=== PATIENT | male | born 1945 | race Caucasian/White ===

== ENCOUNTER → 2017-07-20 | Outpatient (CLI) | payer MEDICARE, OTHER | LOC: M ADAMS 08:27 | DX: S22.32XA Fracture of one rib, left side, initial encounter for closed fracture (principal); X58.XXXA Exposure to other specified factors, initial encounter; Y92.89 Other specified places as the place of occurrence of the external cause; Y93.89 Activity, other specified; Y99.8 Other external cause status | CPT/HCPCS: 71101 ==

== ENCOUNTER → 2017-11-25 | Outpatient (CLI) | payer MEDICARE, OTHER | LOC: M ADAMS 11:12 | DX: M25.572 Pain in left ankle and joints of left foot (principal) | CPT/HCPCS: 73610 ==

== ENCOUNTER 2018-07-01 12:52 | Emergency (ER) | payer MEDICARE, OTHER ==
[~2018-07-01] VITALS: Ht 167.6 cm; Wt 79.5 kg
[2018-07-01] MEDS ORDERED: ASPI81TA85 PO (12:59)
[2018-07-01] MEDS ORDERED: METF10004 PO (12:59)
[2018-07-01] MEDS ORDERED: SUMA100T2 (12:59)
[2018-07-01] MEDS ORDERED: LISI10TA4 PO (13:04)
[2018-07-01] MEDS ORDERED: ONDANSETRON 4MG/2ML VIAL (J2405) IV ONE (13:30)
[2018-07-01] MEDS ORDERED: MORPHINE 4 MG/ML 1ML VIAL/SYRINGE (J2270) IV ONE (13:30)
[2018-07-01] MEDS ORDERED: NS 1,000 ML IV ONE (13:30)
[2018-07-01 13:51] LABS: BASO % 0.3 % (0.0-1.0); EOS # 0.1 10^3/uL (0.0-0.50); EOS % 2.4 % (0.0-3.0); HEMATOCRIT 39.2 % (42.0-52.0); HEMOGLOBIN 12.6 g/dl (13.5-17.5); LYMPH # 0.8 10^3/uL (1.5-4.5); LYMPH % 14.4 % (24.0-44.0); MEAN CORPUSCULAR HEMOGLOBIN 31.9 pg (27.0-33.0); MEAN CORPUSCULAR HGB CONC 32.1 g/dl (32.0-36.5); MEAN CORPUSCULAR VOLUME 99.2 fl (80.0-96.0); MONO # 0.6 10^3/uL (0.0-0.8); MONO % 10.6 % (0.0-5.0); NEUTROPHILS # 4.2 10^3/uL (1.8-7.7); NEUTROPHILS % 72.1 % (36.0-66.0); PLATELET COUNT, AUTOMATED 243 10^3/uL (150-450); RED BLOOD COUNT 3.95 10^6/uL (4.30-6.10); WHITE BLOOD COUNT 5.8 10^3/uL (4.0-10.0)
[2018-07-01 14:12] LABS: ALBUMIN 3.4 GM/DL (3.2-5.2); ALT/SGPT 18 U/L (12-78); AMYLASE 44 U/L (25-115); BILIRUBIN,TOTAL 0.3 MG/DL (0.2-1.0); BLOOD UREA NITROGEN 24 MG/DL (7-18); C REACTIVE PROTEIN QUANTITATIV 1.07 MG/DL (0.00-0.30); CALCIUM LEVEL 8.6 MG/DL (8.8-10.2); CARBON DIOXIDE LEVEL 24 MEQ/L (21-32); CHLORIDE LEVEL 107 MEQ/L (98-107); GLOMERULAR FILTRATION RATE > 60.0 (>42); GLUCOSE, FASTING 377 MG/DL (70-100); LIPASE 82 U/L (73-393); POTASSIUM SERUM 4.6 MEQ/L (3.5-5.1); SODIUM LEVEL 138 MEQ/L (136-145); TOTAL PROTEIN 6.8 GM/DL (6.4-8.2)
[2018-07-01] MEDS ORDERED: ISOVUE-370 76% 100ML VIAL (Q9967) As Ordered ONE (14:26)
--- NOTE | 2018-07-01 14:58 | REP ---
Clinical: Acute left lower quadrant pain. Technique: Axial contrast enhanced images from the lung bases to the pubic symphysis using oral (per protocol) and 100 ml Isovue 370 intravenous contrast material with coronal and sagittal re-formations. Comparison: 06/03/2008 Findings: Lung bases demonstrate moderate diffuse primarily subpleural fibrosis with bronchiectasis and scarring. Liver, pancreas, gallbladder, bilateral adrenal glands and kidneys are essentially normal. A 2.5 mm nonobstructing left renal calculus is suspected. Spleen demonstrates parenchymal calcifications consistent with prior granulomatous disease. The enteric system demonstrates moderate fecal stasis without obstruction or obvious acute inflammatory process. Pelvis demonstrates normal bladder and age appropriate prostate/seminal vesicles. No ascites. No adenopathy. No free air. Atherosclerotic changes of the aorta and vasculature without aneurysm or dissection. Surrounding musculoskeletal structures demonstrate chronic stable and degenerative changes. Impression: 1. Moderate fecal stasis and possible constipation. 2. 2.5 mm nonobstructing left renal calculus. 3. No further acute abdominopelvic pathology appreciated. Specifically, no ascites, adenopathy, or focal inflammatory stranding. 4. Chronic changes as detailed above including fibrosis to the bilateral lung bases and evidence of prior granulomas disease. Electronically Signed by Manolo Mar MD 07/01/2018 02:49 P
[2018-07-01] MEDS ORDERED: ZOFR4TAB14 SL (15:17)
[2018-07-01] MEDS ORDERED: NORCOTAB PO (15:17)
[2018-07-01] MEDS ORDERED: COLA100C5 PO (16:20)
[2018-07-01] MEDS ORDERED: FLOM0.4C39 PO (16:22)
[2018-07-01 16:48] VITALS: BP 115/74
== END 2018-07-01 16:53 | disposition home or self-care (01) ==
LOC: M ED 12:52
DX: R10.9 Unspecified abdominal pain (principal); N20.0 Calculus of kidney; J84.10 Pulmonary fibrosis, unspecified; K59.00 Constipation, unspecified; R51 Headache; E78.00 Pure hypercholesterolemia, unspecified; I10 Essential (primary) hypertension; E55.9 Vitamin D deficiency, unspecified; Z85.46 Personal history of malignant neoplasm of prostate; Z87.891 Personal history of nicotine dependence; Z79.82 Long term (current) use of aspirin; Z79.899 Other long term (current) drug therapy
CPT/HCPCS: 36415; 74177; 80053; 81001; 82150; 83690; 85025; 86140; 96374; 96375; 99284; J2270; J2405; Q9967

== ENCOUNTER → 2018-07-01 | Outpatient (REF) | payer MEDICARE, OTHER ==
[~2018-07-01] MED LIST: ASPI81TA85 PO; COLA100C5 PO; FLOM0.4C39 PO; LISI10TA4 PO; METF10004 PO; NORCOTAB PO; SUMA100T2; ZOFR4TAB14 SL
== END ==
LOC: M LAB REF 10:21
PROVIDERS: ATTEND Physician Assistant Medical
DX: R10.9 Unspecified abdominal pain (principal)

== ENCOUNTER → 2018-08-21 | Outpatient (CLI) | payer MEDICARE, OTHER ==
--- NOTE | 2018-08-21 13:16 | REP ---
LEFT AND COMPLETE: 08/21/2018: Comparison: CT 07/01/2018, AP pelvis 12/28/2006: Clinical history: Left hip pain. Findings: Three views were obtained. There are suzy from prior inguinal hernia surgery, unchanged since 2006. Hip joint space is smooth and width is preserved. There are marginal osteophytes at the acetabular roof but small no femoral head rim osteophytes. There is no acetabular fracture or focal lesion. Pubic rami, symphysis pubis, iliac bone, left SI joint as well as the femoral head neck, trochanters and proximal shaft of femur all unremarkable. No abnormal soft tissue calcifications about the hip. There are vascular calcifications in the femoral artery. Impression: 1. Some minor hip osteoarthritic changes without hip joint space narrowing, AVN, fracture or destructive lesion about the hip and proximal femur. That portion of left kylah pelvis including the acetabulum unremarkable. Electronically Signed by Theodore Menchaca MD 08/21/2018 05:56 P
== END ==
LOC: M ADAMS 10:55
PROVIDERS: ATTEND Physician Assistant
DX: M25.752 Osteophyte, left hip (principal); M25.552 Pain in left hip; Z98.890 Other specified postprocedural states

== ENCOUNTER → 2018-09-06 | Outpatient (REF) | payer MEDICARE, OTHER | LOC: M LAB REF 12:24 → M LABDRWAD 12:24 | PROVIDERS: ATTEND Urology | DX: C61 Malignant neoplasm of prostate (principal) ==

== ENCOUNTER → 2018-09-15 | Outpatient (REF) | payer MEDICARE, OTHER | LOC: M LABDRWAD 12:21 | PROVIDERS: ATTEND Urology | DX: C61 Malignant neoplasm of prostate (principal) ==

== ENCOUNTER → 2018-10-11 | Outpatient (CLI) | payer MEDICARE, OTHER ==
[~2018-10-11] MED LIST changes: +HYDR-3715 PO; +ISOVUE-370 76% 100ML VIAL (Q9967) As Ordered ONE; -NORCOTAB PO
--- NOTE | 2018-10-11 08:49 | REP ---
CT of the abdomen pelvis without and with IV contrast: After IV contrast, immediate and delayed scanning is performed. Comparison. A is 07/01/2018. The visualized lung bases demonstrate chronic fibrotic changes and bulla, unchanged from the prior study. The hepatic parenchyma is homogeneous and unremarkable. The gallbladder, pancreas, spleen, adrenals and kidneys are unchanged. Calcified granulomas are again noted in the spleen. A nonobstructive left renal calculus is again identified. A small simple cyst is again noted in the right kidney. The abdominal aorta is unremarkable. There is no retroperitoneal adenopathy. The bowel and mesentery are unremarkable. Pelvis: There is no ascites. There is no pelvic adenopathy. The bladder is unremarkable. The pelvic bowel loops are unremarkable. There are no lytic, blastic, or destructive skeletal changes. There are benign bone islands posteriorly in the right iliac wing, unchanged from the prior study and also unchanged from 06/03/2008. Impression: Nonobstructive left renal calculus, unchanged. Calcified splenic granulomas, unchanged. Parenchymal scarring and/or bulla in the visualized lower lung avendano, unchanged. No adenopathy or mass. No lytic, blastic or destructive skeletal changes. Electronically Signed by Marquise Simon MD 10/11/2018 08:39 A
--- NOTE | 2018-10-11 17:29 | REP ---
Whole body radionuclide bone scan: History: Prostate malignancy. Elevated PSA level. Comparison bone scan. Comparison CT study October 11, 2018. Technique: 21.5 mCi technetium 99m MDP is whole body bone scan imaging was acquired. Scintigraphic findings: There is a normal distribution of skeletal tracer with uptake in bilateral kidneys and in the urinary bladder. There is an arthritic pattern of increased uptake in the left wrist, bilateral acromioclavicular joints, and the left mid foot. There is no evidence to suggest skeletal metastatic disease. Mild degenerative uptake is seen at the lumbosacral junction. Impression: No evidence to suggest skeletal metastatic disease. Electronically Signed by Trey Winkler MD 10/11/2018 05:19 P
== END ==
LOC: M RAD 07:51
PROVIDERS: ATTEND Urology
DX: C61 Malignant neoplasm of prostate (principal); N28.1 Cyst of kidney, acquired; R97.20 Elevated prostate specific antigen [PSA]
CPT/HCPCS: 74178; 78306; A9503; Q9967

== ENCOUNTER → 2019-07-11 | Outpatient (REF) | payer MEDICARE, OTHER ==
[~2019-07-11] MED LIST changes: +B-12100021 PO; +BUPR50TA PO; +FERR325T3 PO; -ISOVUE-370 76% 100ML VIAL (Q9967) As Ordered ONE; +LISI40TA PO; +MAGN1TAB26 PO; +MULTCAP PO; +NAPR-885 PO; +NESI12.5 PO; +PROP60TA14 PO; +ROSU40TA4 PO; +SILD100T7 PO; +SUMA100T2 PO; +TOPI100T9 PO
== END ==
LOC: M LABDRWAD 12:27
PROVIDERS: ATTEND Nurse Practitioner Family
DX: C61 Malignant neoplasm of prostate (principal)

== ENCOUNTER → 2019-11-18 | Outpatient (CLI) | payer MEDICARE, OTHER ==
--- NOTE | 2019-11-21 15:37 | SLEEPCENT ---
DATE OF PROCEDURE: 11/18/2019 ORDERED BY: SOLANGE Vicente Nocturnal polysomnography was performed for evaluation of sleep physiology in this patient with a history of snoring and nonrestorative sleep who has comorbidities of hypertension and type 2 diabetes. 6 hours and 56 minutes of data were reviewed. There were 363 minutes of sleep identified. Sleep latency was short at 4 minutes. Rapid eye movement (REM) latency was prolonged at 98 minutes. Sleep architecture showed fragmentation. There were 3 REM cycles. Overall sleep efficiency was 88%. The electrocardiogram showed a sinus rhythm with an average heart rate of 66 beats per minute. Electroencephalogram (EEG) showed normal waveforms for awake and sleep. There were 89 respiratory events identified of 10 seconds in duration or greater for an apnea hypopnea index of 14.7. The events were primarily obstructive, not exclusive to sleep stage, more frequent in the supine posture. Arousals from respiratory events occurred 7.4 times per hour and oxygen desaturations were seen into the 70s. There was also some limb activity noted in the electromyogram (EMG) leads, 4-5 trains of 30 events, limb movement arousal index of 8.6. IMPRESSION: 1. Obstructive sleep apnea syndrome (G47.33). Apnea hypopnea index 14.7. 2. Possible periodic limb movement disorder (G47.61). Limb movement arousal index 8.6. RECOMMENDATIONS: The patient should be encouraged to return to the sleep disorder center for pressure therapy. In the interim, alcohol and sedative avoidance should be practiced and caution exercised during the operation of motor vehicles. Depending response to pressure therapy the patient may benefit from interventions to reduce the frequency arousal from limb activity as well.
== END ==
LOC: M SLEEP 20:00
PROVIDERS: ATTEND Nurse Practitioner Family
DX: G47.33 Obstructive sleep apnea (adult) (pediatric) (principal)

== ENCOUNTER → 2020-01-08 | Outpatient (CLI) | payer MEDICARE, OTHER ==
[~2020-01-08] MED LIST changes: -ASPI81TA85 PO; +ASPI81TA86 PO; +BUPR-69 PO; -BUPR50TA PO
--- NOTE | 2020-01-18 17:13 | SLEEPCENT ---
DATE OF PROCEDURE: 01/08/2020 ORDERED BY: SOLANGE Vicente Nocturnal polysomnography was performed for the titration of pressure therapy in this patient's obstructive syndrome. Apnea-hypopnea index of 14.7. For testing the patient was fit with a ResMed AirTouch F20 full-face mask of medium size; 4 cm of water pressure were applied to the circuit and the lights extinguished. 7 hours and 59 minutes of data were reviewed. There were 396 minutes of sleep identified. Sleep latency was short at 12 minutes. Rapid eye movement (REM) latency was delayed at 151 minutes. Sleep architecture improved late in the study. There was evidence of REM rebound. Overall sleep efficiency was 83.5%. The electrocardiogram showed a sinus rhythm with an interventricular conduction delay. There was an average heart rate of 66 beats per minute. Electroencephalogram (EEG) showed normal waveforms for awake and sleep. Respiratory events were best palliated with CPAP at a pressure of 14. Some limb activity was noted. Limb movement arousal index was 6.2. IMPRESSION: Obstructive sleep apnea syndrome (G47.33). RECOMMENDATIONS: Nightly use of pressure therapy 14 cm of water.
== END ==
LOC: M SLEEP 20:00
PROVIDERS: ATTEND Nurse Practitioner Family
DX: G47.33 Obstructive sleep apnea (adult) (pediatric) (principal)

== ENCOUNTER → 2020-07-14 | Outpatient (REF) | payer MEDICARE, OTHER | LOC: M LABDRWAD 12:13 | PROVIDERS: ATTEND Nurse Practitioner Family | DX: Z85.46 Personal history of malignant neoplasm of prostate (principal) ==

== ENCOUNTER 2020-07-25 14:37 | Inpatient (IN) | payer MEDICARE, OTHER ==
[~2020-07-25] VITALS: Ht 167.6 cm; Wt 66.4 kg
[~2020-07-25 14:37] MED LIST changes: +LISI10TA22 PO; -LISI10TA4 PO; -LISI40TA PO; +LISI40TA4 PO
[2020-07-25] MEDS ORDERED: IPRATROPIUM 0.5MG/ALBUTEROL 2.5MG INH SOL UD 3ML (DUONEB) NEB ONE (15:15)
[2020-07-25] MEDS ORDERED: LEVALBUTEROL 1.25 MG/0.5 ML CONCENTRATE NEB NEB PRN (15:15)
[2020-07-25] MEDS ORDERED: ASPIRIN 81 MG CHEW TABLET PO ONE (15:15)
--- NOTE | 2020-07-25 15:45 | REP ---
INDICATION: DYSPNEA/COUGH. COMPARISON: 12/10/2005. TECHNIQUE: SINGLE PORTABLE AP VIEW OF THE CHEST WAS PERFORMED. FINDINGS: There is moderate elevation of the right hemidiaphragm. Diffuse interstitial fibrotic changes are present. These are moderate in severity. There is an 8 cm right hilar density which may represent a mass or focal infiltrate. The heart is not enlarged. IMPRESSION: Ill-defined 8 cm rounded density in the right hilar region may represent a mass or focal infiltrate. There is elevation of the right hemidiaphragm. Recommend CT of the chest to further evaluate. <Electronically signed by Marquise Lopez > 07/25/20 [id number]
[2020-07-25 15:50] LABS: VENOUS BASE EXCESS -1.9 (-2.0-2.0); VENOUS HCO3 26.2 MEQ/L (23.0-27.0); VENOUS O2 SATURATION 62.4 % (60.0-80.0); VENOUS PARTIAL PRESSURE CO2 59.9 mmHg (38.0-50.0); VENOUS PARTIAL PRESSURE O2 34.9 mmHg (30.0-50.0); VENOUS PH 7.259 UNITS (7.330-7.430); VENOUS STANDARD HCO3 22.1 MEQ/L; VENOUS TOTAL CO2 28.1 MEQ/L (24.0-28.0)
[2020-07-25 15:54] LABS: BASO % 0.7 % (0.0-1.0); EOS # 0.2 10^3/uL (0.0-0.5); EOS % 3.2 % (0.0-3.0); HEMATOCRIT 39.4 % (42.0-52.0); HEMOGLOBIN 12.7 g/dl (13.5-17.5); LYMPH # 0.9 10^3/uL (1.5-5.0); LYMPH % 15.2 % (24.0-44.0); MEAN CORPUSCULAR HEMOGLOBIN 31.4 pg (27.0-33.0); MEAN CORPUSCULAR HGB CONC 32.2 g/dl (32.0-36.5); MEAN CORPUSCULAR VOLUME 97.3 fl (80.0-96.0); MONO # 0.7 10^3/uL (0.0-0.8); MONO % 11.1 % (0.0-5.0); NEUTROPHILS # 4.1 10^3/uL (1.5-8.5); NEUTROPHILS % 69.5 % (36.0-66.0); PLATELET COUNT, AUTOMATED 305 10^3/uL (150-450); RED BLOOD COUNT 4.05 10^6/uL (4.30-6.10); WHITE BLOOD COUNT 5.9 10^3/uL (4.0-10.0)
[2020-07-25 16:04] LABS: INR 0.87
[2020-07-25 16:31] LABS: ALBUMIN 3.4 GM/DL (3.2-5.2); ALT/SGPT 19 U/L (12-78); BILIRUBIN,DIRECT 0.1 MG/DL (0.0-0.2); BILIRUBIN,TOTAL 0.2 MG/DL (0.2-1.0); BLOOD UREA NITROGEN 20 MG/DL (7-18); CALCIUM LEVEL 9.9 MG/DL (8.8-10.2); CARBON DIOXIDE LEVEL 28 MEQ/L (21-32); CHLORIDE LEVEL 108 MEQ/L (98-107); CPK CREATINE PHOSPHOKINASE 52 U/L (39-308); CREATININE FOR GFR 1.13 MG/DL (0.70-1.30); GLOMERULAR FILTRATION RATE > 60.0 (>42); GLUCOSE, FASTING 112 MG/DL (70-100); MB/CK RELATIVE INDEX 1.92 (< OR =4); POTASSIUM SERUM 4.3 MEQ/L (3.5-5.1); SODIUM LEVEL 140 MEQ/L (136-145); THYROXINE (T4) 7.8 UG/DL (4.5-12.0); TOTAL PROTEIN 7.3 GM/DL (6.4-8.2); TROPONIN I < 0.02 NG/ML (< 0.10)
[2020-07-25] MEDS ORDERED: ISOVUE-370 76% 100ML VIAL As Ordered ONE (16:37)
--- NOTE | 2020-07-25 17:41 | REPVR ---
PROCEDURE INFORMATION: Exam: CT Chest With Contrast; Diagnostic Exam date and time: 07/25/2020 4:00 PM Age: 75 years old Clinical indication: Mass, lump, or swelling in the chest and shortness of breath; Additional info: Sob/mas TECHNIQUE: Imaging protocol: Diagnostic computed tomography of the chest with intravenous contrast. 3D rendering (Not supervised by radiologist): MIP and/or 3D reconstructed images were created by the technologist. Radiation optimization: All CT scans at this facility use at least one of these dose optimization techniques: automated exposure control; mA and/or kV adjustment per patient size (includes targeted exams where dose is matched to clinical indication); or iterative reconstruction. Contrast material: ISOVUE 370; Contrast volume: 75 ml; Contrast route: INTRAVENOUS (IV); COMPARISON: MD PORTABLE CHEST X-RAY 07/25/2020 3:19 PM FINDINGS: Lungs: Large anterior right upper lobe mass measuring 6 x 5 cm, correlating with the radiographic abnormality. This extends to the peripheral pleural surface, with adjacent atelectasis. Pulmonary vascular/interstitial pattern does not suggest active pulmonary edema. Subpleural pulmonary fibrosis changes are present bilaterally. Pleural space: No pleural effusion or pneumothorax. Heart: No overt cardiac enlargement or abnormal volume of pericardial fluid. Mediastinal space: Small hiatal hernia is present. Pulmonary arteries: Central pulmonary arteries show no intraluminal defect suggestive of clot. Aorta: No thoracic aortic aneurysm or dissection. . Lymph nodes: Large mediastinal lymph nodes are present measuring up to 3 cm with subcarinal, precarinal, right paratracheal and prevascular nodes and right hilar nodes. Adrenals: Adrenal glands are normal in appearance. Bones/joints: Bony structures are unremarkable except for thoracic degenerative disc disease. Soft tissues: Unremarkable. IMPRESSION: 1. Large anterior right upper lobe mass concerning for malignancy, measuring 6 x 5 cm, with extensive mediastinal and right hilar lymphadenopathy which is likely metastatic. Inflammatory or infectious processes could give this appearance but felt to be less likely. 2. Underlying pulmonary fibrosis Electronically signed by: Rivera Tinajero On 07/25/2020 17:41:21 PM
[2020-07-25] MEDS ORDERED: PROAAER10 INH (18:29)
--- NOTE | 2020-07-25 19:50 | HPEPDOC ---
[facility] Medical History & Physical Date of Admission Jul 25, 2020 Date of Service: Jul 25, 2020 Attending Physician: NAVA ROMAN MD History and Physical TIME OF SERVICE: 1005pm CHIEF COMPLAINT: dyspnea HISTORY OF PRESENT ILLNESS: This 75 yr old M has had dyspnea for 3 months. 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 He also has right shoulder pain and lost 20lbs in 6 months. His children made him come to the hospital. CT revealed a lung mass which Bipin Robert d/w . REVIEW OF SYSTEMS: 12-point review of systems negative except as listed in HPI PAST MEDICAL/ SURGICAL HISTORY: Prostate cancer DM MIRZA CPAP 14 SOCIAL HISTORY: Former smoker Martha who was exposed to agent orange FAMILY HISTORY: CAD, Cancer (brother also exposed to agent orange) ALLERGIES: Please see below. HOME MEDICATIONS: Please see below. PHYSICAL EXAMINATION: Vital Signs Date Time Temp Pulse Resp B/P (MAP) Pulse Ox O2 Delivery O2 Flow Rate FiO2 07/25/20 14:38 97.9 83 18 135/79 (97) 97 Room Air GENERAL APPEARANCE: slim build/NAD HEENT: EOMI/ mask covering lower face CARDIOVASCULAR: RRR/NMRG/ radial pulses intact LUNGS: CTAB on RA ABDOMEN: scaphoid/ soft &NT MUSCULOSKELETAL: NCAT/ temporal wasting / DESMOND x 4 NEUROLOGICAL:CN2-12 grossly intact/ speech not dysarthric PSYCHIATRIC: A&Ox 3 LABORATORY DATA: 07/25/20 15:10 Immature Granulocyte % (Auto) 0.3, Neutrophils (%) (Auto) 69.5H, Lymphocytes (%) (Auto) 15.2L, Monocytes (%) (Auto) 11.1H, Eosinophils (%) (Auto) 3.2H, Bas ophils (%) (Auto) 0.7, Neutrophils # (Auto) 4.1, Lymphocytes # (Auto) 0.9L, Monocytes # (Auto) 0.7, Eosinophils # (Auto) 0.2, Basophils # (Auto) 0.0, Nucleated Red Blood Cells % (auto) 0.0, Prothrombin Time 12.0, Prothromb Time International Ratio 0.87, Anion Gap 4L, Glomerular Filtration Rate > 60.0, Lactic Acid Level 1.4, Calcium Level 9.9, Total Bilirubin 0.2, Direct Bilirubin 0.1, Aspartate Amino Transf (AST/SGOT) 13, Alanine Aminotransferase (ALT/SGPT) 19, Alkaline Phosphatase 91, Total Creatine Kinase 52, Creatine Kinase MB 1.0, Creatine Kinase MB Relative Index 1.92, Troponin I < 0.02, Total Protein 7.3, Albumin 3.4, Albumin/Globulin Ratio 0.9, Thyroid Stimulating Hormone (TSH) 1.860, Thyroxine (T4) 7.8 07/25/20 15:23: Blood Gas Bicarbonate Standard 22.1, Venous Blood pH 7.259L, Venous Blood Partial Pressure CO2 59.9H, Venous Blood Partial Pressure O2 34.9, Venous Blood Total Carbon Dioxide 28.1H, Venous Blood HCO3 26.2, Venous Blood Oxygen Saturation 62.4, Venous Blood Base Excess -1.9 IMAGING: Chest xray Ill-defined 8 cm rounded density in the right hilar region may represent a mass or focal infiltrate. There is elevation of the right hemidiaphragm. Recommend CT of the chest to further evaluate. CT chest IMPRESSION: 1. Large anterior right upper lobe mass concerning for malignancy, measuring 6 x 5 cm, with extensive mediastinal and right hilar lymphadenopathy which is likely metastatic. Inflammatory or infectious processes could give this appearance but felt to be less likely. 2. Underlying pulmonary fibrosis MICROBIOLOGY: 07/25/20 Respiratory Virus Panel (PCR) ([facility]) - Final, Complete ASSESSMENT: is a 75 yr old w a hx of prostate CA, HTN and DM who will be admitted for evaluation of a new lung mass. PLAN: 1. Lung mass Likely 2/2 cancer ABG reviewed Plan: admit to medical floor / pulse ox / day time team to f/u w in the morning 2. Hypercapnea 2/2 MIRZA Plan: CPAP 3. Macrocytic Anemia Plan iron studies, folate B12 4. HTN Plan: Lisinopril & propranolol 5. DM Plan: f/u FSBS, A1C, hypoglycemia protocol, SSI 6. Migraines Plan: sumatriptan and topiramate DVT PX Lovenox Dispo; Home after at least 2 midnights stay Home Medications Scheduled Alogliptin Benzoate (Nesina) 12.5 Mg Tablet, 12.5 MG PO DAILY Aspirin (Aspirin EC) 81 Mg Tablet.dr, 81 MG PO DAILY Bupropion HCl (Bupropion HCl Sr) 150 Mg Tab.sr.12h, 150 MG PO BID Cyanocobalamin (Vitamin B-12) (B-12) 1,000 Mcg Tablet, 1,000 MCG PO DAILY Ferrous Sulfate (Ferrous Sulfate) 325 Mg Tablet.dr, 325 MG PO BID Lisinopril (Lisinopril) 40 Mg Tablet, 20 MG PO DAILY Magnesium Oxide (Magnesium Oxide) 400 Mg Tablet, 400 MG PO DAILY Metformin HCl (Metformin HCl) 1,000 Mg Tablet, 1,000 MG PO BID Multivitamin (Multivitamin) 1 Each Tablet, 1 TAB PO BID Pioglitazone HCl (Pioglitazone HCl) 45 Mg Tablet, 45 MG PO DAILY Propranolol Hcl (Propranolol HCl) 60 Mg Tablet, 60 MG PO DAILY Rosuvastatin Calcium (Rosuvastatin Calcium) 40 Mg Tablet, 40 MG PO QPM Sildenafil Citrate (Sildenafil Citrate) 100 Mg Tablet, 100 MG PO PRN Topiramate (Topiramate) 200 Mg Tablet, 100 MG PO BID Scheduled PRN Albuterol Sulfate (Proair Hfa) 8.5 Gm Hfa.aer.ad, 2 PUFF INH Q4-6HP PRN for wheezing Sumatriptan Succinate (Sumatriptan Succinate) 100 Mg Tablet, 100 MG PO ASDIRECTED PRN for MIGRAINE may repeat in 2 hours; do not exceed 200 mg in 24 hours Allergies Coded Allergies: No Known Allergies (Unverified , 01/12/19) A-FIB/CHADSVASC A-FIB History Current/History of A-Fib/PAF?: No Current PO Anticoag Therapy: No NAVA ROMAN MD Jul 25, 2020 19:50
[2020-07-25] MEDS ORDERED: DEXTROSE 50% 50 ML SYRINGE IV PRN (20:00)
[2020-07-25] MEDS ORDERED: GLUCAGON INJ 1MG VIAL SC PRN (20:00)
[2020-07-25] MEDS ORDERED: MOM 30ML SUSPENSION UDC PO PRN (20:00)
[2020-07-25] MEDS ORDERED: GLUCOSE 4GM CHEW TABLET PO PRN (20:00)
[2020-07-25] MEDS ORDERED: ACETAMINOPHEN TAB 650MG DOSE (2X325MG) PO PRN (20:00)
[2020-07-25] MEDS ORDERED: MAALOX 30 ML SUSP *UDC PO PRN (20:00)
[2020-07-25] MEDS: HumaLOG INSULIN (NovoLOG) PER UNIT SC SCH (21:00)
[2020-07-25 21:06] LABS: FERRITIN 56 NG/ML (26-388); IRON (FE) 36 UG/DL (65-175); PERCENT SATURATION 13.5 % (19.7-50.0); TOTAL IRON BINDING CAPACITY 267 UG/DL (250-450)
--- NOTE | 2020-07-25 21:10 | ECGEPIP ---
[facility] - ED Test Date: 2020-07-25 Pat Name: JUAN REYES Department: Room: - Gender: Male Team Primary Care Physician: YING : [id number] Requested By: DAVID NARVAEZ Order Number: [id number] Reading MD: Stacy Wan Measurements Intervals [place] Rate: 68 P: 23 MS: 156 QRS: -44 QRSD: 150 T: 17 QT: 405 QTc: 434 Interpretive Statements SINUS RHYTHM MARKED LEFT AXIS DEVIATION RIGHT BUNDLE BRANCH BLOCK No prior Electronically Signed on 07-25-2020 21:10:13 EST by Stacy Wan
[2020-07-25] MEDS ORDERED: PIOG1TAB55 PO (21:35)
[2020-07-25] MEDS ORDERED: MULT-90 PO (21:35)
[2020-07-25] MEDS ORDERED: BUPR-289 PO (21:35)
[2020-07-25] MEDS ORDERED: TOPI200T7 PO (21:37)
[2020-07-25] MEDS ORDERED: ASPI-161 PO (21:53)
[2020-07-25 23:35] VITALS: BP 137/76
[2020-07-26 01:50] VITALS: O2SAT 97
[2020-07-26] MEDS ORDERED: ALBUTEROL 90 MCG/ACT 8GM HFA INHALER INH PRN (03:30)
[2020-07-26 06:00] VITALS: BP 125/75
[2020-07-26] MEDS: HumaLOG INSULIN (NovoLOG) PER UNIT SC SCH ×4 (07:30→21:00)
[2020-07-26 07:33] LABS: HEMATOCRIT 41.1 % (42.0-52.0); HEMOGLOBIN 13.3 g/dl (13.5-17.5); MEAN CORPUSCULAR HEMOGLOBIN 31.2 pg (27.0-33.0); MEAN CORPUSCULAR HGB CONC 32.4 g/dl (32.0-36.5); MEAN CORPUSCULAR VOLUME 96.5 fl (80.0-96.0); PLATELET COUNT, AUTOMATED 287 10^3/uL (150-450); RED BLOOD COUNT 4.26 10^6/uL (4.30-6.10)
[2020-07-26 07:55] LABS: BLOOD UREA NITROGEN 15 MG/DL (7-18); CALCIUM LEVEL 9.5 MG/DL (8.8-10.2); CARBON DIOXIDE LEVEL 24 MEQ/L (21-32); CHLORIDE LEVEL 109 MEQ/L (98-107); CREATININE FOR GFR 0.89 MG/DL (0.70-1.30); GLOMERULAR FILTRATION RATE > 60.0 (>42); GLUCOSE, FASTING 98 MG/DL (70-100); SODIUM LEVEL 141 MEQ/L (136-145)
[2020-07-26] MEDS: PROPRANOLOL 20 MG TAB PO SCH (09:23)
[2020-07-26] MEDS: buPROPion **SR TABLET** (ZYBAN) 150MG PO SCH ×2 (09:23→20:26)
[2020-07-26] MEDS: ASPIRIN 81 MG ENTERIC TAB PO SCH (09:23)
[2020-07-26] MEDS: TOPIRAMATE (TopAMAX) 100 MG TAB PO SCH ×2 (09:24→20:27)
[2020-07-26] MEDS: FERROUS SULFATE 325MG TAB PO SCH ×2 (09:24→20:27)
[2020-07-26] MEDS: ENOXAPARIN 40MG/0.4ML SYRINGE (J1650 PER 10MG) SC SCH (09:24)
[2020-07-26 09:53] LABS: HEMOGLOBIN A1c 7.2 %
--- NOTE | 2020-07-26 11:10 | IPNPDOC ---
Date Seen The patient was seen on 07/26/20. Progress Note SUBJECTIVE: denies sob, hemoptysis. has chronic cough, unchanged. prior h/o smoking 1ppd x >30yrs, quit 12yrs ago denies occupation chemical exposures, pets, or travel to [facility] w/o prior family h/o lung cancer. had cxr two years ago which was negative. 20lb weight loss w/o change in appetit e. PARK "doing things." OBJECTIVE PHYSICAL EXAMINATION: VITAL SIGNS: Please see below. GEN: no distress speaks in full sentences w/o use of acc resp mm HEENT: EOMI no carotid bruit or stridor dry mm no jvd thyromegaly Lungs: diminished Heart: s1s2 RRR Abd: soft nt nd +bs x 4quadrants no rebound guarding or HSM EXt: no c/c/e LABORATORY DATA, IMAGING STUDIES, MICROBIOLOGY: Please see below Chest xray Ill-defined 8 cm rounded density in the right hilar region may represent a mass or focal infiltrate. There is elevation of the right hemidiaphragm. Recommend CT of the chest to further evaluate. CT chest IMPRESSION: 1. Large anterior right upper lobe mass concerning for malignancy, measuring 6 x 5 cm, with extensive mediastinal and right hilar lymphadenopathy which is likely metastatic. Inflammatory or infectious processes could give this appearance but felt to be less likely. 2. Underlying pulmonary fibrosis ASSESSMENT AND PLAN: 75 yr old M prior smoker quit 12years ago c/o 3mos PARK and right shoulder pain found to have a large RUL mass 6x5cm with mediastinal and right hilar LAD PROBLEMS: RUL Lung mass 6x5cm w extensive mediastinal and right hilar LAD PARK secondary to rul lung mass Prostate cancer DM MIRZA cpap 14 PLAN: pulmonary and thoracic surgical consult for biopsy. medonc consult once biopsy proven malignancy. PRN nebs and activity as tolerated. continued other home meds. VS, I&O, 24H, Fishbone Vital Signs/I&O Vital Signs Date Time Temp Pulse Resp B/P (MAP) Pulse Ox O2 Delivery O2 Flow Rate FiO2 07/26/20 06:00 97.8 66 17 125/75 (92) 97 Room Air Laboratory Data 24H LABS Laboratory Tests 2 07/25/20 15:10: Immature Granulocyte % (Auto) 0.3, Neutrophils (%) (Auto) 69.5H, Lymphocytes (%) (Auto) 15.2L, Monocytes (%) (Auto) 11.1H, Eosinophils (%) (Auto) 3.2H, Basophils (%) (Auto) 0.7, Neutrophils # (Auto) 4.1, Lymphocytes # (Auto) 0.9L, Monocytes # (Auto) 0.7, Eosinophils # (Auto) 0.2, Basophils # (Auto) 0.0, Nucleated Red Blood Cells % (auto) 0.0, Prothrombin Time 12.0, Prothromb Time International Ratio 0.87, Anion Gap 4L, Glomerular Filtration Rate > 60.0, Lactic Acid Level 1.4, Calcium Level 9.9, Iron Level 36L, Total Iron Binding Capacity 267, Transferrin % Saturation 13.5L, Ferritin 56, Total Bilirubin 0.2, Direct Bilirubin 0.1, Aspartate Amino Transf (AST/SGOT) 13, Alanine Aminotransferase (ALT/SGPT) 19, Alkaline Phosphatase 91, Total Creatine Kinase 52, Creatine Kinase MB 1.0, Creatine Kinase MB Relative Index 1.92, Troponin I < 0.02, Total Protein 7.3, Albumin 3.4, Albumin/Globulin Ratio 0.9, Thyroid Stimulating Hormon e (TSH) 1.860, Thyroxine (T4) 7.8 07/25/20 15:23: Blood Gas Bicarbonate Standard 22.1, Venous Blood pH 7.259L, Venous Blood Partial Pressure CO2 59.9H, Venous Blood Partial Pressure O2 34.9, Venous Blood Total Carbon Dioxide 28.1H, Venous Blood HCO3 26.2, Venous Blood Oxygen Sat uration 62.4, Venous Blood Base Excess -1.9 07/25/20 20:58: Bedside Glucose (Misc Panel) 115H 07/26/20 07:07: Nucleated Red Blood Cells % (auto) 0.0, Anion Gap 8, Glomerular Filtration Rate > 60.0, Calcium Level 9.5 CBC/BMP Laboratory Tests 07/25/20 15:10 07/26/20 07:07 Microbiology Microbiology 07/25/20 Respiratory Virus Panel (PCR) ([facility]) - Final, Complete CINDY MACIAS MD Jul 26, 2020 07:59
[2020-07-26] MEDS: SUMAtriptan SUCCINATE 25 MG TAB PO PRN (13:20)
[2020-07-26 14:00] VITALS: BP 146/88
[2020-07-26] MEDS: ROSUVASTATIN 10 MG TAB (CRESTOR) PO SCH (20:32)
[2020-07-26 22:00] VITALS: BP 114/72
[2020-07-27 06:00] VITALS: BP 124/72
--- NOTE | 2020-07-27 07:44 | IPNPDOC ---
Date Seen The patient was seen on 07/27/20. Progress Note SUBJECTIVE: c/o sinus congestion, and ear fullness. no discharge, vertigo, fever or chills no sob cp. some thomas but not needing o2. OBJECTIVE PHYSICAL EXAMINATION: VITAL SIGNS: Please see below. GEN:asleep but arousable aaox 3 no distress speaks in full sentences w/o use of acc resp mm HEENT: EOMI no carotid bruit or stridor dry mm no jvd thyromegaly Lungs: diminished Heart: s1s2 RRR Abd: soft nt nd +bs x 4quadrants no rebound guarding or HSM EXt: no c/c/e LABORATORY DATA, IMAGING STUDIES, MICROBIOLOGY: Please see below Chest xray Ill-defined 8 cm rounded density in the right hilar region may represent a mass or focal infiltrate. There is elevation of the right hemidiaphragm. Recommend CT of the chest to further evaluate. CT chest IMPRESSION: 1. Large anterior right upper lobe mass concerning for malignancy, measuring 6 x 5 cm, with extensive mediastinal and right hilar lymphadenopathy which is likely metastatic. Inflammatory or infectious processes could give this appearance but felt to be less likely. 2. Underlying pulmonary fibrosis ASSESSMENT AND PLAN: 75 yr old M prior smoker quit 12years ago c/o 3mos THOMAS and right shoulder pain found to have a large RUL mass 6x5cm with mediastinal and right hilar LAD PROBLEMS: RUL Lung mass 6x5cm w extensive mediastinal and right hilar LAD sinus congestion rhinorrhea THOMAS secondary to rul lung mass Prostate cancer DM MIRZA cpap 14 PLAN: per pulm dr covarrubias and dr bose thoracic surgeon, no need for inpt consultation. ok to proceed with ct guided lung biopsy for diagnosis and outpt f u. for staging, check ct head w/o contrast r/o brain mets, ct abd/pelvis r/o mets. if bone involvement, send for bone scan in am. [facility] dr joycelyn bowen appt as outpt. pt goes to [facility] dr billy, but ok to see private specialists. dc in am after biopsy. VS, I&O, 24H, Fishbone Vital Signs/I&O Vital Signs Date Time Temp Pulse Resp B/P (MAP) Pulse Ox O2 Delivery O2 Flow Rate FiO2 07/27/20 06:00 97.5 74 18 124/72 (89) 96 Room Air I&O- Last 24 Hours up to 6 AM 07/27/20 06:00 Intake Total 2850 ml Balance 2850 ml Laboratory Data 24H LABS Laboratory Tests 2 07/26/20 11:33: Bedside Glucose (Misc Panel) 272H 07/26/20 17:08: Bedside Glucose (Misc Panel) 77L 07/26/20 20:45: Bedside Glucose (Misc Panel) 229H 07/27/20 05:22: Bedside Glucose (Misc Panel) 128H Microbiology Microbiology 07/25/20 Respiratory Virus Panel (PCR) ([facility]) - Final, Complete CINDY MACIAS MD Jul 27, 2020 07:26
[2020-07-27] MEDS: GASTROGRAFIN SOLUTION 30ML PO SCH ×2 (08:27→08:30)
[2020-07-27] MEDS: HumaLOG INSULIN (NovoLOG) PER UNIT SC SCH ×4 (08:28→21:00)
[2020-07-27] MEDS: TOPIRAMATE (TopAMAX) 100 MG TAB PO SCH ×2 (08:28→21:19)
[2020-07-27] MEDS: ASPIRIN 81 MG ENTERIC TAB PO SCH (08:28)
[2020-07-27] MEDS: buPROPion **SR TABLET** (ZYBAN) 150MG PO SCH ×2 (08:28→21:20)
[2020-07-27] MEDS: FERROUS SULFATE 325MG TAB PO SCH ×2 (08:28→21:20)
[2020-07-27] MEDS: PROPRANOLOL 20 MG TAB PO SCH (08:29)
[2020-07-27] MEDS: ENOXAPARIN 40MG/0.4ML SYRINGE (J1650 PER 10MG) SC SCH (08:29)
[2020-07-27] MEDS ORDERED: ISOVUE-370 76% 100ML VIAL As Ordered ONE (09:50)
--- NOTE | 2020-07-27 10:42 | REP ---
INDICATION: lung mass r/o mets. COMPARISON: 10/11/2028 TECHNIQUE: 100 cc Isovue 370 with oral bowel preparatory contrast administration FINDINGS: There are chronic lung base changes status quo. The liver, gallbladder, spleen, pancreas, adrenal glands, and kidneys are essentially unchanged. There is a nonobstructing left nephrolith. There are 2 unchanged right renal cysts. The abdominal aorta and para-regions are unchanged. There is no significant change in appearance of the bowel loops or the mesenteries. There is no evidence of a mass or adenopathy. There is no free fluid or free air. There is no significant change in appearance of the osseous structures. IMPRESSION: There is no evidence of acute intra-abdominal or intrapelvic disease. Findings and chronic changes as described above. <Electronically signed by Modesto Hart > 07/27/20 1038
--- NOTE | 2020-07-27 10:43 | REP ---
INDICATION: lung mass r/o mets. COMPARISON: None. TECHNIQUE: 4.5 mm contiguous transaxial sections were obtained from the skull base to the cerebral convexities with thin cuts through the posterior fossa without the administration of intravenous contrast. FINDINGS: The ventricles and sulci are consistent with the patient's age. There are no extra-axial fluid collections. There is no mass effect. The deep cerebral white matter is consistent with the patient's age. The orbital and petrous structures, cerebellopontine angles, and posterior fossa are unremarkable. The sella turcica, cavernous, and paracavernous structures are essentially unremarkable. The visualized portions of the paranasal sinuses and mastoid air cells are clear. Images of the skull base show no gross abnormality. IMPRESSION: Essentially unremarkable noncontrast enhanced CT examination of the brain. <Electronically signed by Modesto Hart > 07/27/20 1031
[2020-07-27 14:00] VITALS: BP 116/74
[2020-07-27] MEDS: ROSUVASTATIN 10 MG TAB (CRESTOR) PO SCH (21:20)
[2020-07-27 22:00] VITALS: BP 118/72
[2020-07-28] MEDS: SUMAtriptan SUCCINATE 25 MG TAB PO PRN (05:10)
[2020-07-28 06:00] VITALS: BP 123/73
[2020-07-28] MEDS: HumaLOG INSULIN (NovoLOG) PER UNIT SC SCH ×2 (07:30→14:26)
[2020-07-28] MEDS: ASPIRIN 81 MG ENTERIC TAB PO SCH (08:53)
[2020-07-28] MEDS: FERROUS SULFATE 325MG TAB PO SCH (08:53)
[2020-07-28 08:54] VITALS: BP 123/73
[2020-07-28] MEDS: TOPIRAMATE (TopAMAX) 100 MG TAB PO SCH (08:54)
[2020-07-28] MEDS: buPROPion **SR TABLET** (ZYBAN) 150MG PO SCH (08:54)
[2020-07-28] MEDS: PROPRANOLOL 20 MG TAB PO SCH (08:54)
[2020-07-28] MEDS: ENOXAPARIN 40MG/0.4ML SYRINGE (J1650 PER 10MG) SC SCH (08:55)
[2020-07-28 10:38] LABS: FOLATE > 24.0 NG/ML (>5.4)
[2020-07-28 10:49] LABS: VITAMIN B12 LEVEL 1375 PG/ML (247-911)
[2020-07-28] MEDS ORDERED: PROV108A INH (11:11)
--- NOTE | 2020-07-28 11:15 | DS.PDOC ---
Discharge Summary General Date of Admission Jul 25, 2020 at 19:46 Date of Discharge 07/28/20 Discharge Summary DISCHARGE DIAGNOSES: RUL Lung mass 6x5cm w extensive mediastinal and right hilar LAD sinus congestion rhinorrhea PARK secondary to rul lung mass Prostate cancer DM MIRZA cpap 14 DISCHARGE MEDICATIONS: SEE BELOW DISCHARGE INSTRUCTIONS: HOLD METFORMIN AND LISINOPRIL FOR 2DAYS DUE TO RECENT IV CONTRAST TO PREVENT KIDNEY FAILURE. RESUME MEDS AFTER 2 DAYS. AVOID DEHYDRATION. PCP FU 1WK,DR COVARRUBIAS, DR OLSON, DR CROOK APPT FOR NEW LUNG MASS R/O MALIGNANCY HOSPITAL COURSE: 75 yr old M prior smoker quit 12years ago c/o 3mos PARK and right shoulder pain found to have a large RUL mass 6x5cm with mediastinal and right hilar LAD per pulm dr covarrubias and dr bose thoracic grullon. rgeon, no need for inpt consultation. ok to proceed with ct guided lung biopsy for diagnosis and outpt fu. for staging, checked ct head w/o contrast r/o brain mets, ct abd/pelvis r/o mets, which were negative. Pain resolved, and pt remained 97% 02 sat on room air and did not require supplemental oxygen at discharge. DISCHARGE PHYSICAL EXAMINATION: VITAL SIGNS: Please see below. GEN:asleep but arousable aaox 3 no distress speaks in full sentences w/o use of acc resp mm HEENT: EOMI no carotid bruit or stridor dry mm no jvd thyromegaly Lungs: diminished Heart: s1s2 RRR Abd: soft nt nd +bs x 4quadrants no rebound guarding or HSM EXt: no c/c/e DISCHARGE LABORATORY DATA, IMAGING STUDIES, MICROBIOLOGY: Please see below Chest xray Ill-defined 8 cm rounded density in the right hilar region may represent a mass or focal infiltrate. There is elevation of the right hemidiaphragm. Recommend CT of the chest to further evaluate. CT chest IMPRESSION: 1. Large anterior right upper lobe mass concerning for malignancy, measuring 6 x 5 cm, with extensive mediastinal and right hilar lymphadenopathy which is likely metastatic. Inflammatory or infectious processes could give this appearance but felt to be less likely. 2. Underlying pulmonary fibrosis TIME SPENT ON DISCHARGE: 30 MIN Vital Signs/I&Os Vital Signs Date Time Temp Pulse Resp B/P (MAP) Pulse Ox O2 Delivery O2 Flow Rate FiO2 07/28/20 08:54 67 123/73 07/28/20 06:00 98.7 18 96 Room Air I&O- Last 24 Hours up to 6 AM 07/28/20 06:00 Intake Total 1800 ml Balance 1800 ml Laboratory Data Labs 24H Laboratory Tests 2 07/27/20 11:28: Bedside Glucose (Misc Panel) 172H 07/27/20 17:08: Bedside Glucose (Misc Panel) 111H 07/27/20 20:01: Bedside Glucose (Misc Panel) 189H 07/28/20 06:46: Bedside Glucose (Misc Panel) 121H FSBS Laboratory Tests Test 07/27/20 11:28 07/27/20 17:08 07/27/20 20:01 07/28/20 06:46 Range/Units Bedside Glucose (Misc Panel) 172 111 189 121 83-110 MG/DL Microbiology Microbiology 07/25/20 Respiratory Virus Panel (PCR) (THOMAS) - Final, Complete Discharge Medications Scheduled Albuterol Sulfate (Proventil Hfa) 6.7 Gm Hfa.aer.ad, 2 PUFF INH Q4H for wheezing Alogliptin Benzoate (Nesina) 12.5 Mg Tablet, 12.5 MG PO DAILY, (Reported) Aspirin (Aspirin EC) 81 Mg Tablet.dr, 81 MG PO DAILY, (Reported) Bupropion HCl (Bupropion HCl Sr) 150 Mg Tab.sr.12h, 150 MG PO BID, (Reported) Cyanocobalamin (Vitamin B-12) (B-12) 1,000 Mcg Tablet, 1,000 MCG PO DAILY, (Reported) Ferrous Sulfate (Ferrous Sulfate) 325 Mg Tablet.dr, 325 MG PO BID, (Reported) Magnesium Oxide (Magnesium Oxide) 400 Mg Tablet, 400 MG PO DAILY, (Reported) Multivitamin (Multivitamin) 1 Each Tablet, 1 TAB PO BID, (Reported) Pioglitazone HCl (Pioglitazone HCl) 45 Mg Tablet, 45 MG PO DAILY, (Reported) Propranolol Hcl (Propranolol HCl) 60 Mg Tablet, 60 MG PO DAILY, (Reported) Rosuvastatin Calcium (Rosuvastatin Calcium) 40 Mg Tablet, 40 MG PO QPM, (Reported) Sildenafil Citrate (Sildenafil Citrate) 100 Mg Tablet, 100 MG PO PRN, (Reported) Topiramate (Topiramate) 200 Mg Tablet, 100 MG PO BID, (Reported) Scheduled PRN Albuterol Sulfate (Proair Hfa) 8.5 Gm Hfa.aer.ad, 2 PUFF INH Q4-6HP PRN for wheezing Sumatriptan Succinate (Sumatriptan Succinate) 100 Mg Tablet, 100 MG PO ASDIRECTED PRN for MIGRAINE, (Reported) may repeat in 2 hours; do not exceed 200 mg in 24 hours Allergies Coded Allergies: No Known Allergies (Unverified , 01/12/19) CINDY MACIAS MD Jul 28, 2020 11:15
[2020-07-28] MEDS ORDERED: LIDOCAINE 1% MDV 20ML VIAL As Ordered ONE (11:58)
[2020-07-28] MEDS ORDERED: SODIUM BICARBONATE 8.4% INJ 50MEQ 50 ML VIAL As Ordered ONE (12:11)
--- NOTE | 2020-07-28 13:11 | REP ---
INDICATION: POST RIGHT LUNG BIOPSY, 1 VIEW, PA INSPIRATION. COMPARISON: Comparison chest x-ray 25 July 2020.. TECHNIQUE: Upright PA chest radiograph. FINDINGS: The previously noted large right upper lobe perihilar mass lesion persists unchanged. There is no evidence of pneumothorax or hydrothorax. Diffuse interstitial fibrosis pattern is seen in the lung avendano. Heart is not enlarged. IMPRESSION: No complication is seen. <Electronically signed by Giovani Winkler > 07/28/20 [id number]
[2020-07-28 14:00] VITALS: BP 127/69
[2020-07-28 14:30] VITALS: BP 127/70
[2020-07-28 15:30] VITALS: BP 141/85
[2020-07-28 16:30] VITALS: BP 130/82
--- NOTE | 2020-07-28 17:00 | REP ---
INDICATION: RIGHT UPPLER LUNG MASS 6X5CM BIOPSY R/O MALIGNANCY.. COMPARISON: None. TECHNIQUE: The procedure is performed by ERON Abreu, under the direct supervision of Dr. Winkler. The risks and benefits of the procedure were explained to the patient and informed consent was obtained both orally and written. Directly prior to the start of the procedure, a formal timeout was done in the exam room. The right upper lobe lung mass was localized using CT guidance. Skin was prepped and draped in the usual sterile fashion. Five ml of 1% lidocaine 10 mg/ml was used as a local anesthetic. FINDINGS: Using CT guidance a 19/20 gauge coaxial needle biopsy system was inserted and advanced into the nodule. Eight core biopsy samples were obtained and sent to the lab. CT images obtained directly after the biopsy show no evidence of pneumothorax. After the appropriate amount of monitored convalescence the patient was discharged from the department. IMPRESSION: CT-guided biopsy of right upper lobe lung mass. <Electronically signed by Tati Tucker > 07/28/20 1620 <Electronically signed by Giovani Winkler > 07/28/20 [id number]
== END 2020-07-28 17:45 | disposition home or self-care (01) | DRG 182 ==
LOC: M ED 14:37 → M ED INP 19:46 → M MS5PR 23:25
PROVIDERS: ADMIT Internal Medicine; ATTEND General Practice
PROC: 0BBC3ZX Excision of Right Upper Lung Lobe, Percutaneous Approach, Diagnostic (ICD-10-PCS; principal; 2020-07-28 12:30)
DX: C34.11 Malignant neoplasm of upper lobe, right bronchus or lung (principal); E11.9 Type 2 diabetes mellitus without complications; G47.33 Obstructive sleep apnea (adult) (pediatric); J84.10 Pulmonary fibrosis, unspecified; I10 Essential (primary) hypertension; D53.9 Nutritional anemia, unspecified; G43.909 Migraine, unspecified, not intractable, without status migrainosus; Z79.82 Long term (current) use of aspirin; Z85.46 Personal history of malignant neoplasm of prostate; Z79.84 Long term (current) use of oral hypoglycemic drugs; Z79.899 Other long term (current) drug therapy; Z87.891 Personal history of nicotine dependence

== ENCOUNTER 2020-09-12 15:09 | Emergency (ER) | payer MEDICARE, OTHER ==
[~2020-09-12] VITALS: Ht 167.6 cm; Wt 63.6 kg
[2020-09-12 16:33] LABS: BASO # 0.1 10^3/uL (0.0-0.2); BASO % 0.7 % (0.0-1.0); EOS # 0.2 10^3/uL (0.0-0.5); EOS % 2.5 % (0.0-3.0); HEMATOCRIT 40.7 % (42.0-52.0); HEMOGLOBIN 12.8 g/dl (13.5-17.5); LYMPH # 0.7 10^3/uL (1.5-5.0); LYMPH % 9.6 % (24.0-44.0); MEAN CORPUSCULAR HEMOGLOBIN 30.5 pg (27.0-33.0); MEAN CORPUSCULAR HGB CONC 31.4 g/dl (32.0-36.5); MEAN CORPUSCULAR VOLUME 97.1 fl (80.0-96.0); MONO # 0.8 10^3/uL (0.0-0.8); MONO % 10.6 % (2.0-8.0); NEUTROPHILS # 5.4 10^3/uL (1.5-8.5); PLATELET COUNT, AUTOMATED 340 10^3/uL (150-450); RED BLOOD COUNT 4.19 10^6/uL (4.30-6.10); WHITE BLOOD COUNT 7.1 10^3/uL (4.0-10.0)
[2020-09-12 17:14] LABS: ALBUMIN 3.3 GM/DL (3.2-5.2); ALT/SGPT 19 U/L (12-78); BILIRUBIN,DIRECT < 0.1 MG/DL (0.0-0.2); BILIRUBIN,TOTAL 0.2 MG/DL (0.2-1.0); BLOOD UREA NITROGEN 37 MG/DL (7-18); CALCIUM LEVEL 9.6 MG/DL (8.8-10.2); CARBON DIOXIDE LEVEL 25 MEQ/L (21-32); CHLORIDE LEVEL 107 MEQ/L (98-107); CK-MB VALUE MASS < 1.0 NG/ML (<3.6); CPK CREATINE PHOSPHOKINASE 57 U/L (39-308); CREATININE FOR GFR 1.16 MG/DL (0.70-1.30); GLOMERULAR FILTRATION RATE > 60.0 (>42); GLUCOSE, FASTING 97 MG/DL (70-100); MB/CK RELATIVE INDEX 1.75 (< OR =4); NT-PRO BNP 60 PG/ML (<125); POTASSIUM SERUM 5.1 MEQ/L (3.5-5.1); SODIUM LEVEL 139 MEQ/L (136-145); THYROXINE (T4) 8.3 UG/DL (4.5-12.0); TOTAL PROTEIN 7.5 GM/DL (6.4-8.2); TROPONIN I < 0.02 NG/ML (< 0.10)
--- NOTE | 2020-09-12 17:45 | REP ---
INDICATION: DYSPNEA/COUGH COMPARISON: 07/28/2020 TECHNIQUE: Portable AP view of the chest FINDINGS: In comparison with prior examination and allowing for variations in technique, there is no significant change. Diffuse bilateral advanced emphysematous disease and fibrosis/scarring again noted as well as large right upper lobe mass and right lower lobe hazy opacity which may reflect a small associated effusion. No pneumothorax. Cardiac silhouette is normal. Skeletal structures are intact. IMPRESSION: Chronic changes including suspected right upper lobe mass similar to 07/28/2020. <Electronically signed by Manolo Mar > 09/12/20 5212
[2020-09-12 18:03] LABS: RSV AMPLIFICATION NEGATIVE (NEGATIVE)
--- NOTE | 2020-09-12 18:51 | REPVR ---
PROCEDURE INFORMATION: Exam: CT Head Without Contrast Exam date and time: 09/12/2020 4:22 PM Age: 75 years old Clinical indication: Other: "head fullness"; Additional info: HX lung CA; Head fullnbess TECHNIQUE: Imaging protocol: Computed tomography of the head without contrast. Radiation optimization: All CT scans at this facility use at least one of these dose optimization techniques: automated exposure control; mA and/or kV adjustment per patient size (includes targeted exams where dose is matched to clinical indication); or iterative reconstruction. COMPARISON: CT Head without contrast 07/27/2020 9:54 AM FINDINGS: Brain: No acute intracranial hemorrhage, cerebral edema, or midline shift. Cerebral ventricles: No hydrocephalus. Bones/joints: No acute fracture. Paranasal sinuses: There is no acute sinusitis. Mastoid air cells: Visualized mastoid air cells are well aerated. Orbital cavity: Unremarkable as visualized. Soft tissues: Unremarkable. IMPRESSION: No acute intracranial abnormality. Electronically signed by: Doug English On 09/12/2020 18:51:46 PM
--- NOTE | 2020-09-12 18:54 | ECGEPIP ---
[facility] - ED Test Date: 2020-09-12 Pat Name: JUAN REYES Department: Room: - Gender: Male Program Officer: JESSEE : 1945 Requested By: Pauly Barfield Order Number: [id number] Reading MD: Stacy Wan Measurements Intervals [place] Rate: 77 P: 33 CO: 158 QRS: -55 QRSD: 148 T: 19 QT: 408 QTc: 461 Interpretive Statements Normal sinus rhythm Left axis deviation Right bundle branch block Electronically Signed on 09-12-2020 18:54:02 EST by Stacy Wan
[2020-09-12 19:27] VITALS: BP 116/72
== END 2020-09-12 19:33 | disposition home or self-care (01) ==
LOC: M ED 15:09
DX: B34.9 Viral infection, unspecified (principal); H92.09 Otalgia, unspecified ear; E11.9 Type 2 diabetes mellitus without complications; I10 Essential (primary) hypertension; J44.9 Chronic obstructive pulmonary disease, unspecified; C34.91 Malignant neoplasm of unspecified part of right bronchus or lung; E78.9 Disorder of lipoprotein metabolism, unspecified; Z87.891 Personal history of nicotine dependence; Z85.46 Personal history of malignant neoplasm of prostate; Z90.79 Acquired absence of other genital organ(s); Z79.899 Other long term (current) drug therapy; Z79.84 Long term (current) use of oral hypoglycemic drugs; Z79.82 Long term (current) use of aspirin

== ENCOUNTER → 2020-09-12 | Outpatient (CLI) | payer MEDICARE, OTHER ==
[~2020-09-12] MED LIST changes: +ASPI-161 PO; +BUPR-289 PO; +MULT-90 PO; +PIOG1TAB55 PO; +PROAAER10 INH; +PROV108A INH; +TOPI200T7 PO
--- NOTE | 2020-09-12 10:11 | ECGEPIP ---
[facility] Test Date: 2020-09-12 Pat Name: JUAN REYES Department: Room: - Gender: Male Vp Of Customer Experience Strategy: VINAY : 1945 Requested By: Servando Hudson Order Number: [id number] Reading MD: Latonya Salazar Measurements Intervals [place] Rate: 112 P: 45 TN: 160 QRS: -76 QRSD: 134 T: 12 QT: 352 QTc: 480 Interpretive Statements Sinus tachycardia RATE FASTER Left axis deviation Right bundle branch block POSSIBLE RIGHT VENTRICULAR HYPERTROPHY NEW STAIN PATTERN/POSSIBLE ISCHEMIA POSSIBLE Inferior infarct , age undetermined/AND OR LAFB COPD PATTERN QTC PROLONG NEW Electronically Signed on 09-12-2020 10:11:18 EST by Latonya Salazar
== END ==
LOC: M EKG 09:39
PROVIDERS: ATTEND Internal Medicine Hematology & Oncology
DX: C34.91 Malignant neoplasm of unspecified part of right bronchus or lung (principal)

== ENCOUNTER 2020-10-18 13:23 | Emergency (ER) | payer MEDICARE, OTHER ==
[~2020-10-18] VITALS: Ht 165.1 cm; Wt 59.1 kg
[2020-10-18] MEDS ORDERED: OXYMETAZOLINE 0.05% NASAL SPRAY (AFRIN) ONE (14:15)
[2020-10-18] MEDS ORDERED: NS 500 ML IV ONE (14:15)
[2020-10-18] MEDS ORDERED: SILVER NITRATE APPLICATOR TOP ONE (14:15)
[2020-10-18 15:15] LABS: BASO % 1.1 % (0.0-1.0); EOS % 0.7 % (0.0-3.0); HEMATOCRIT 34.5 % (42.0-52.0); HEMOGLOBIN 10.7 g/dl (13.5-17.5); LYMPH # 0.1 10^3/uL (1.5-5.0); LYMPH % 4.1 % (24.0-44.0); MEAN CORPUSCULAR HEMOGLOBIN 30.5 pg (27.0-33.0); MEAN CORPUSCULAR VOLUME 98.3 fl (80.0-96.0); MONO # 0.3 10^3/uL (0.0-0.8); MONO % 11.1 % (2.0-8.0); NEUTROPHILS # 2.2 10^3/uL (1.5-8.5); NEUTROPHILS % 81.9 % (36.0-66.0); PLATELET COUNT, AUTOMATED 248 10^3/uL (150-450); RED BLOOD COUNT 3.51 10^6/uL (4.30-6.10); WHITE BLOOD COUNT 2.7 10^3/uL (4.0-10.0)
[2020-10-18 15:25] LABS: INR 1.01; PROTHROMBIN TIME 13.5 SECONDS (12.5-14.3)
[2020-10-18 15:26] LABS: PARTIAL THROMBOPLASTIN TIME 28.3 SECONDS (24.2-38.5)
[2020-10-18 15:44] LABS: BLOOD UREA NITROGEN 31 MG/DL (7-18); CALCIUM LEVEL 9.4 MG/DL (8.8-10.2); CARBON DIOXIDE LEVEL 27 MEQ/L (21-32); CHLORIDE LEVEL 108 MEQ/L (98-107); CREATININE FOR GFR 0.68 MG/DL (0.70-1.30); GLOMERULAR FILTRATION RATE > 60.0 (>42); GLUCOSE, FASTING 126 MG/DL (70-100); POTASSIUM SERUM 4.2 MEQ/L (3.5-5.1); SODIUM LEVEL 142 MEQ/L (136-145)
[2020-10-18 17:23] LABS: HEMATOCRIT 31.6 % (42.0-52.0); HEMOGLOBIN 9.8 g/dl (13.5-17.5); MEAN CORPUSCULAR HEMOGLOBIN 30.5 pg (27.0-33.0); MEAN CORPUSCULAR VOLUME 98.4 fl (80.0-96.0); PLATELET COUNT, AUTOMATED 216 10^3/uL (150-450); RED BLOOD COUNT 3.21 10^6/uL (4.30-6.10); WHITE BLOOD COUNT 2.4 10^3/uL (4.0-10.0)
[2020-10-18] MEDS ORDERED: AUGMENTIN 875 MG TAB PO ONE (18:45)
[2020-10-18] MEDS ORDERED: AUGM875T28 PO (18:47)
[2020-10-18 19:45] VITALS: BP 112/73
[2020-10-23] MEDS ORDERED: PROC10TA4 (15:00)
[2020-10-23] MEDS ORDERED: SUCR1ORA2 (15:00)
[2020-10-23] MEDS ORDERED: GERI8.6T (15:00)
== END 2020-10-18 19:54 | disposition home or self-care (01) ==
LOC: EDBD 13:23 → M ED 13:23
DX: R04.0 Epistaxis (principal); E11.9 Type 2 diabetes mellitus without complications; G47.33 Obstructive sleep apnea (adult) (pediatric); Z79.899 Other long term (current) drug therapy; Z79.82 Long term (current) use of aspirin; Z87.891 Personal history of nicotine dependence

== ENCOUNTER 2020-10-23 14:24 | Emergency (ER) | payer MEDICARE, OTHER ==
[~2020-10-23] VITALS: Ht 167.6 cm; Wt 57.7 kg
[~2020-10-23 14:24] MED LIST changes: +AUGM875T28 PO
[2020-10-23] MEDS ORDERED: SUCR1ORA2 PO (15:00)
[2020-10-23] MEDS ORDERED: GERI8.6T PO (15:00)
[2020-10-23] MEDS ORDERED: PROC10TA4 PO (15:00)
[2020-10-23] MEDS ORDERED: OXYMETAZOLINE 0.05% NASAL SPRAY (AFRIN) ONE (15:20)
--- NOTE | 2020-10-23 15:34 | ED PDOC ---
Post-Departure Follow-Up Patient was a private patient of Dr. Nixon, and not seen by this ED physician. A ny listing of an ED provider's name on the record is for EDM logistics only. Ward Penn M.D. Oct 23, 2020 15:34
[2020-10-23 15:45] VITALS: BP 85/52
--- NOTE | 2020-10-23 15:45 | ED PDOC ---
Provider Note HISTORY OF PRESENT ILLNESS: Epistaxis, s/p rhinorocket insertion last Tuesday. Comes to ER for balloon removal. No recurrent bleeding, no trauma, BP well controlled. Currently receiving RT for lung CA in [place]. ALLERGIES: Please see below. HOME MEDICATIONS: Please see below. PAST MEDICAL HISTORY: 1. . 2. . PAST SURGICAL HISTORY: 1. 2. FAMILY HISTORY: Father: Mother: Siblings: Children: Hereditary Diseases: Unexpected deaths due to medical reasons: SOCIAL HISTORY: Marital status and/or living arrangements: Children: Employment: Tobacco use: ETOH: Illicit drug use: IV drug use: Other relevant social factors: REVIEW OF SYSTEMS: CONSTITUTIONAL: no. HEENT: tonisllectomy and nasal polyp removal. CARDIOVASCULAR: no. RESPIRATORY: no. GENITOURINARY: no. MUSCULOSKELETAL: no. GASTROINTESTINAL: no. SKIN: no. NEUROLOGICAL: no. PSYCHIATRIC: no. ENDOCRINE: no. HEMATOLOGIC/LYMPHATIC: no. ALLERGIC/IMMUNOLOGIC: no. PHYSICAL EXAMINATION: VITAL SIGNS: Please see below. GENERAL APPEARANCE: elderly, frail. HEENT: rhinorocket left nostril; OC/OP- posterior wall dry, no bleeding. RESPIRATORY: clear. CARDIOVASCULAR: normotensive. LABORATORY DATA: Please see below. IMPRESSION: 1. Epistaxis PROCEDURE: rhinorocket removed from left nasal cavity, friable anterior septal mucosa but no perforation, inf turbs ok; dissolvable surgicel and vaseline placed on left nasal septum anteriorly. PLAN/RECOMMENDATIONS: Afrin fro 3 days if recurs. May follow up as needed. Thank you for the consultation. ISABELLA GIRON MD Oct 23, 2020 15:45
== END 2020-10-23 16:07 | disposition home or self-care (01) ==
LOC: M ED 14:24
DX: R04.0 Epistaxis (principal); C34.90 Malignant neoplasm of unspecified part of unspecified bronchus or lung; Z92.3 Personal history of irradiation

== ENCOUNTER 2020-11-06 08:21 | Inpatient (IN) | payer MEDICARE, OTHER ==
[2020-11-06] VITALS (14 sets, daily range): BP systolic 97–117; BP diastolic 53–65
[~2020-11-06] VITALS: Ht 167.6 cm; Wt 61.6 kg
[~2020-11-06 08:21] MED LIST changes: +GERI8.6T PO; +PROC10TA4 PO; +SUCR1ORA2 PO
[2020-11-06] MEDS ORDERED: cefTRIAXone SOD 2 GM in D5W MINI-BAG PLUS 50 ML IV ONE (08:35)
[2020-11-06] MEDS ORDERED: NS 1,590 ML in IV 1 EA IV ONE ×2 (08:35→09:45)
[2020-11-06 08:51] LABS: HEMATOCRIT 27.5 % (42.0-52.0); HEMOGLOBIN 8.4 g/dl (13.5-17.5); MEAN CORPUSCULAR HEMOGLOBIN 31.6 pg (27.0-33.0); MEAN CORPUSCULAR HGB CONC 30.5 g/dl (32.0-36.5); MEAN CORPUSCULAR VOLUME 103.4 fl (80.0-96.0); PLATELET COUNT, AUTOMATED 138 10^3/uL (150-450); RED BLOOD COUNT 2.66 10^6/uL (4.30-6.10); WHITE BLOOD COUNT 3.2 10^3/uL (4.0-10.0)
--- NOTE | 2020-11-06 08:53 | REP ---
INDICATION: SEPSIS/SHOCK COMPARISON: 09/12/2020 TECHNIQUE: Portable AP view of the chest FINDINGS: Mediastinum and cardiac silhouette are relatively stable. Alqsfp-B-Lyhh identified with tip in the SVC. The lung avendano demonstrate diffuse chronic interstitial changes and fibrosis similar to prior examination. A vague right hilar opacity appears decreased from prior examination. No obvious new acute consolidation, effusion, or pneumothorax. Skeletal structures intact. IMPRESSION: Chronic fibrosis and interstitial changes. Right perihilar opacity which may be slightly decreased in size from prior examination. <Electronically signed by Manolo Mar > 11/06/20 [id number]
[2020-11-06 09:18] LABS: BLOOD UREA NITROGEN 26 MG/DL (7-18); CARBON DIOXIDE LEVEL 27 MEQ/L (21-32); CHLORIDE LEVEL 107 MEQ/L (98-107); CREATININE FOR GFR 0.78 MG/DL (0.70-1.30); GLOMERULAR FILTRATION RATE > 60.0 (>42); GLUCOSE, FASTING 134 MG/DL (70-100); SODIUM LEVEL 142 MEQ/L (136-145)
[2020-11-06 09:19] LABS: ALBUMIN 2.1 GM/DL (3.2-5.2); ALT/SGPT 21 U/L (12-78); AMYLASE 16 U/L (25-115); BILIRUBIN,DIRECT 0.1 MG/DL (0.0-0.2); BILIRUBIN,TOTAL 0.4 MG/DL (0.2-1.0); CALCIUM LEVEL 8.5 MG/DL (8.8-10.2); CPK CREATINE PHOSPHOKINASE 30 U/L (39-308); TOTAL PROTEIN 5.7 GM/DL (6.4-8.2); TROPONIN I 0.63 NG/ML (< 0.10)
[2020-11-06 09:24] LABS: LYMPHOCYTES 6 % (16-44); MONOCYTES 3 % (0-5); NEUTROPHILS 87 % (28-66); PLATELET ESTIMATE DECREASED (NORMAL)
[2020-11-06 09:25] LABS: ANISOCYTOSIS 1+
[2020-11-06] MEDS ORDERED: ISOVUE-370 76% 100ML VIAL As Ordered ONE (10:00)
--- NOTE | 2020-11-06 10:57 | REP ---
INDICATION: SOB. Patient gives a history of prostate carcinoma. 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 COMPARISON: Comparison is made with today's chest x-ray as well as chest x-ray from September 12, 2020. Comparison chest CT imaging 25 July 2020.. TECHNIQUE: Contrast dose: 75 ML of Isovue [address] technique: Helical scanning is acquired and overlapping 1.5 mm and contiguous 3 mm axial images are reformatted. In addition, maximum intensity projection and multiplanar re-formation images are generated in sagittal and coronal imaging projections. FINDINGS: There is good opacification in the pulmonary arterial tree. There is no evidence of vessel cut off or filling defect to suggest pulmonary embolus. Homogeneous opacity is seen in the thoracic aorta. There is no evidence of aneurysm or dissection. Lung window settings demonstrate the recently demonstrated a right upper lobe mass is again seen measuring 5.4 x 5.0 x 4.3 cm. It appears slightly smaller than on July 25, 2020. There are extensive peripheral areas of subpleural honeycombing and fibrosis in the lung avendano bilaterally similar to the prior study. There are new areas of parenchymal opacity as well including a 2.4 cm nodular opacity in the left perihilar region of the left lower lobe. This and adjacent consolidation is seen consistent with left lower lobe infiltrate. Another area of increased markings compared to the July 25, 2020 study is seen in the right lower lobe and middle lobe. There is a new small right pleural effusion. Previously noted subcarinal and precarinal and paratracheal adenopathy appears somewhat improved although there is persistent adenopathy. No adrenal mass is seen. The visualized upper abdominal structures are unchanged and unremarkable. There are granulomatous calcifications in the spleen again noted. In the upper abdomen, IMPRESSION: No CT evidence of pulmonary embolus. Some improvement is seen in the size the large right upper lobe malignant mass and mediastinal lymphadenopathy is improved since the prior study. There is extensive pulmonary fibrosis and honeycombing as before. There are new areas of infiltrate in the left lower lobe, right lower lobe, and right middle lobe consistent with pneumonia. <Electronically signed by Giovani Winkler > 11/06/20 0385
[2020-11-06] MEDS ORDERED: AZITHROMYCIN INJ 500 MG, VIAL MATE ADAPTER 1 EACH in NS 250 ML IV ONE (11:00)
[2020-11-06] MEDS ORDERED: MORP20SO3 PO (11:57)
[2020-11-06] MEDS ORDERED: ALBU8.5H INH (11:57)
[2020-11-06] MEDS ORDERED: NS 1,000 ML IV ONE (12:10)
[2020-11-06] MEDS: NOREPINEPHRINE BITARTRATE 8 MG in D5W 492 ML IV SCH ×7 (12:29→21:07)
[2020-11-06] MEDS ORDERED: GLUCOSE 4GM CHEW TABLET PO PRN (13:15)
[2020-11-06] MEDS ORDERED: ACETAMINOPHEN TAB 650MG DOSE (2X325MG) PO PRN (13:15)
[2020-11-06] MEDS ORDERED: DEXTROSE 50% 50 ML SYRINGE IV PRN (13:15)
[2020-11-06] MEDS ORDERED: GLUCAGON INJ 1MG VIAL SC PRN (13:15)
[2020-11-06] MEDS ORDERED: METF-877 PO (13:36)
[2020-11-06] MEDS ORDERED: JARD1TAB3 PO (13:36)
--- NOTE | 2020-11-06 13:54 | REP ---
INDICATION: central line placement. COMPARISON: Comparison chest x-ray 06 Nov 2020. TECHNIQUE: Portable upright AP chest radiograph. FINDINGS: A right internal jugular central venous line is seen with its tip in the expected location of the SVC right atrial junction. A left IJ line Smsvvx-F-Mqzn catheter remains in place also in the expected location of the SVC. Right hemidiaphragm is again noted to be elevated. Extensive interstitial lung disease fibrosis pattern is noted. There is some pleural thickening on the right which is more prominent than previously. There is no evidence of pneumothorax. Lung avendano are unchanged.. IMPRESSION: Bilateral internal jugular central venous lines in place. No evidence of pneumothorax. Elevated right hemidiaphragm and extensive interstitial lung disease again noted.. <Electronically signed by Giovani Winkler > 11/06/20 0433
[2020-11-06] MEDS ORDERED: CEFEPIME HCL 2 GM in D5W MINI-BAG PLUS 50 ML IV SCH (14:00)
[2020-11-06 14:25] LABS: APPEARANCE, URINE CLEAR (CLEAR); BACTERIA, URINE AUTO NEGATIVE (NEGATIVE); BILIRUBIN, URINE AUTO NEGATIVE (NEGATIVE); BLOOD, URINE BLOOD NEGATIVE (NEGATIVE); CK-MB VALUE MASS 3.7 NG/ML (<3.6); COLOR, URINE YELLOW (YELLOW); GLUCOSE, URINE (UA) AUTO 3+ mg/dL (NEGATIVE); INR 1.12; KETONE, URINE AUTO TRACE mg/dL (NEGATIVE); LEUKOCYTE ESTERASE, URINE AUTO NEGATIVE (NEGATIVE); MB/CK RELATIVE INDEX 9.25 (< OR =4); MUCUS, URINE SMALL (NEGATIVE); NITRITE, URINE AUTO NEGATIVE (NEGATIVE); PROTEIN, URINE AUTO NEGATIVE (NEGATIVE); PROTHROMBIN TIME 14.6 SECONDS (12.5-14.3); RBC, URINE AUTO 0 /HPF (0-3); SPECIFIC GRAVITY URINE AUTO 1.045 (1.002-1.035); SQUAMOUS EPITHELIAL CELL UR AU 0 /HPF (0-6); TROPONIN I 0.57 NG/ML (< 0.10); UROBILINOGEN, URINE AUTO 0.2 mg/dL (0.0-2.0); WBC, URINE AUTO 0 /HPF (0-3)
[2020-11-06 14:26] LABS: PARTIAL THROMBOPLASTIN TIME 38.1 SECONDS (24.2-38.5)
[2020-11-06] MEDS ORDERED: VANCOMYCIN HCL 1,000 MG, VIAL MATE ADAPTER 1 EACH in NS 250 ML IV SCH (16:00)
--- NOTE | 2020-11-06 17:08 | ECGEPIP ---
[facility] - ED Test Date: 2020-11-06 Pat Name: JUAN REYES Department: Room: [place] [address] Gender: Male Board Handler: YOSELIN : 1945 Requested By: Stacy Wan Order Number: [id number] Reading MD: Kenny Perla Measurements Intervals [place] Rate: 97 P: 37 NH: 144 QRS: 10 QRSD: 136 T: -1 QT: 412 QTc: 523 Interpretive Statements Normal sinus rhythm Right bundle branch block Possible Inferior infarct , age undetermined Prolonged QTc interval new when compared to tracing done 09-12-20 at 1636 Electronically Signed on 11-06-2020 17:08:21 EDT by Kenny Perla
[2020-11-06] MEDS ORDERED: ONDANSETRON 4MG/2ML VIAL IV PRN (17:15)
[2020-11-06] MEDS ORDERED: ALBUTEROL SULFATE 2.5 MG/0.5 ML INH NEB SOLN NEB PRN (17:15)
[2020-11-06] MEDS: HumaLOG INSULIN (NovoLOG) PER UNIT SC SCH ×2 (17:41→21:00)
--- NOTE | 2020-11-06 18:16 | HPEPDOC ---
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 Patient stated that at baseline he does have shortness of breath. However, he had noticed worsening short of breath today. He himself denies any fevers, however, his who is accompanying him stated that she hadn't notice a low-grade temperature on him. Additionally, she stated that he has been coughing more than usual. She states that he's been coughing up some thick sputum. He denied any chest pain. He states that his shortness of breath is not changed with lying flat. Additionally, the patient states that he feels weak and does get lightheaded when he tries to walk. On presentation to the emergency department, patient was tachycardic and hypotensive. Additionally, he was hypoxic requiring 2 L nasal cannula. Chest x- ray obtained demonstrated chronic fibrotic and interstitial changes as well as previous right lung mass which looks decrease in size of his previous examination. This was followed. The CT angiogram of the chest which demonstrated no evidence of pulmonary embolism. However, there was continued large right upper lobe malignant mass with mediastinal adenopathy. Additionally, there is extensive urinary fibrosis and honeycombing. Lastly, there was new areas of inf iltrate in the left lower lobe as well as right lower lobe and right middle lobe consistent with pneumonia. The patient's labs demonstrated a pancytopenia. Additionally, his chemistries demonstrated an elevated troponin of 0.63. His CRP was elevated at 16.3. Hospitalist medicine was consulted for admission and further evaluation and management. On evaluation in the ED the patient was septic appearing. He was hypotensive despite multiple fluid boluses. An additional bolus of IV fluid was ordered. Patient was asymptomatic however BP was not fluid responsive. Peripheral Levophed was started. Central venous access was obtained and patient was admitted PAST MEDICAL HISTORY: 1. Poorly differentiated squamous cell carcinoma the lung. 2. Diabetes mellitus type 2 3. Possible pulmonary fibrosis following with Dr. Sheridan of pulmonary medicine 4. Depression 5. Prostate cancer 6. Obstructive sleep apnea PAST SURGICAL HISTORY: 1. TURP SOCIAL HISTORY: Patient lives at home with his . Patients assists him with his ADLs. He is a former smoker. He states that he used to smoke 1ppd. He denies any IV or illicit drug use FAMILY HISTORY: Patient father had a history of diabetes and HTN. His brother has a history of prostate cancer ALLERGIES: Please see below. REVIEW OF SYSTEMS: CONSTITUTIONAL: Denies fevers, chills, unintentional weight-loss. Denies night sweats HEENT: Admits to history of migraines. Denies dysphagia. Denies odynophagia. CARDIOVASCULAR: Denies chest pain, palpitations, or feelings of the heart racing. Denies chest pressure RESPIRATORY: Admits to shortness of breath. Admits to cough with sputum production. Denies hemoptysis. GASTROINTESTINAL: Denies abdominal pain. Denies nausea, vomiting, diarrhea, and constipation. GENITOURINARY: Denies dysuria. Denies increased frequency. Denies urgency. SKIN: Denies rashes or lesions MUSCULOSKELETAL: Admits to chronic back pain. Denies muscle weakness NEUROLOGICAL: Denies changes in gait or speech from baseline PSYCHIATRIC: admits to history of anxiety and depression ENDOCRINE: Denies heat intolerance or cold intolerance. Admits to diabetes HEMATOLOGIC/LYMPHATIC: Denies easy bruising or bleeding. Denies history of DVT or PE HOME MEDICATIONS: Please see below. PHYSICAL EXAMINATION: VITAL SIGNS: Temperature 98.0, pulse 92, respiratory rate 20, blood pressure 80/51, pulse oximetry 99% on 2L NC GENERAL APPEARANCE: Patient is awake, alert and oriented. Appears in no acute distress although is ill appearing. HEENT: Atraumatic, normocephalic. Eyes are nonicteric. Trachea is midline. Mucous membranes are slightly dry CARDIOVASCULAR: Normal S1, S2. Regular rate and rhythm. No clicks rubs or murmur s. No JVD. LUNGS: Diminished breath sounds throughout. Some scattered wheezing and rhonchi bilaterally. Fine crackles in the bases. Symmetric chest expansion. ABDOMEN: Soft, nondistended. Nontender. Normoactive bowel sounds throughout. EXTREMITIES: No edema. Full and equal pulses in bilateral upper and lower extremities NEUROLOGICAL: No focal neurological deficits PSYCHIATRIC: Mood and affect appear appropriate LABORATORY DATA: See below. IMAGING: INDICATION: SEPSIS/SHOCK COMPARISON: 09/12/2020 TECHNIQUE: Portable AP view of the chest FINDINGS: Mediastinum and cardiac silhouette are relatively stable. [id number] identified with tip in the SVC. The lung avendano demonstrate diffuse chronic interstitial changes and fibrosis similar to prior examination. A vague right hilar opacity appears decreased from prior examination. No obvious new acute consolidation, effusion, or pneumothorax. Skeletal structures intact. IMPRESSION: Chronic fibrosis and interstitial changes. Right perihilar opacity which may be slightly decreased in size from prior examination. INDICATION: SOB. Patient gives a history of prostate carcinoma. 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 COMPARISON: Comparison is made with today's chest x-ray as well as chest x-ray from September 12, 2020. Comparison chest CT imaging 25 July 2020.. TECHNIQUE: Contrast dose: 75 ML of Isovue [address] technique: Helical scanning is acquired and overlapping 1.5 mm and contiguous 3 mm axial images are reformatted. In addition, maximum intensity projection and multiplanar re-formation images are generated in sagittal and coronal imaging projections. FINDINGS: There is good opacification in the pulmonary arterial tree. There is no evidence of vessel cut off or filling defect to suggest pulmonary embolus. Homogeneous opacity is seen in the thoracic aorta. There is no evidence of aneurysm or dissection. Lung window settings demonstrate the recently demonstrated a right upper lobe mass is again seen measuring 5.4 x 5.0 x 4.3 cm. It appears slightly smaller than on July 25, 2020. There are extensive peripheral areas of subpleural honeycombing and fibrosis in the lung avendano bilaterally similar to the prior study. There are new areas of parenchymal opacity as well including a 2.4 cm nodular opacity in the left perihilar region of the left lower lobe. This and adjacent consolidation is seen consistent with left lower lobe infiltrate. Another area of increased markings compared to the July 25, 2020 study is seen in the right lower lobe and middle lobe. There is a new small right pleural effusion. Previously noted subcarinal and precarinal and paratracheal adenopathy appears somewhat improved although there is persistent adenopathy. No adrenal mass is seen. The visualized upper abdominal structures are unchanged and unremarkable. There are granulomatous calcifications in the spleen again noted. In the upper abdomen, IMPRESSION: No CT evidence of pulmonary embolus. Some improvement is seen in the size the large right upper lobe malignant mass and mediastinal lymphadenopathy is improved sinc e the prior study. There is extensive pulmonary fibrosis and honeycombing as before. There are new areas of infiltrate in the left lower lobe, right lower lobe, and right middle lobe consistent with pneumonia. INDICATION: central line placement. COMPARISON: Comparison chest x-ray 06 Nov 2020. TECHNIQUE: Portable upright AP chest radiograph. FINDINGS: A right internal jugular central venous line is seen with its tip in the expected location of the SVC right atrial junction. A left IJ line [id number] catheter remains in place also in the expected location of the SVC. Right hemidiaphragm is again noted to be elevated. Extensive interstitial lung disease fibrosis pattern is noted. There is some pleural thickening on the right which is more prominent than previously. There is no evidence of pneumothorax. Lung avendano are unchanged.. IMPRESSION: Bilateral internal jugular central venous lines in place. No evidence of pneumothorax. Elevated right hemidiaphragm and extensive interstitial lung disease again noted.. MICROBIOLOGY: Please see below. ASSESSMENT: Patient is a 75 year old male with a past medical history significant for poorly differentiated squamous cell carcinoma currently undergoing chemotherapy and radiation who presented to the [facility] ER with complaint of shortness of breath. Patient was found to be hypotensive. He was started on peripheral levophed. Central venous access was obtained and patient was admitted to hospitalist service . PLAN: 1. Sepsis/Septic Shock likely 2/2 pneumonia -Patient presented hypotensive and tachycardic. He was leukopenic, however, he does receive chemotherapy. He received a total of 4 L normal saline in the ED. His blood pressure responded minimally. His tachycardia did resolve. Due to his hypotension, he was started on peripheral Levophed. Intravenous access was obtained. -Patient will be started on Cefepime and Vancomycin. He is not neutropenic however did just recently receive Chemotherapy. -Blood cultures have been ordered and pending. U/A is negative. Sputum culture pending -Chest CT demonstrating likely post obstructive pneumonia. -He is currently on Levophed. Will titrate to obtain a MAP of > 65. 2. Pneumonia -Left lower lobe, Right lower lobe and right middle lobe consolidations consistent with pneumonia. Patient does have a cough. No fever in ED however patients stated that he has had a fever. -Have started Cefepime and Vancomycin. He received Azithromycin and Rocephin in the ED. -Procalcitonin elevated at 0.29 -CRP elevated at 16.30 -Sputum culture pending -Patient is currently on nasal cannula. He does also have a history of pulmonary fibrosis. He follows with Pulmonary medicine outpatient. -Albuterol nebs -Acapella 3. Elevated Troponin likely secondary to demand ischemia -Patient presented with troponin of 0.63. No changes on EKG. Likely secondary to demand ischemia given his hypotension and hypoxia. -Repeat troponin came down to 0.57. Will continue to trend -BNP slightly elevated at 5481. When placing central line he did have a large IVC suggesting a high CVP. Have ordered an echocardiogram 4. Diabetes Mellitus Type 2 -Sliding scale insulin coverage 5. Squamous Cell Carcinoma of the lung -Patient has squamous cell carcinoma of the lung. He was diagnosed in Jul 2020. He has been started on chemotherapy and radiation. CT imaging demonstrates decrease in his right mass size. -He has a port on the left chest wall -Patient can follow-up with Hem/Onc outpatient 6. Depression -Holding medications for now given patients critical illness 7. HLD -Holding atorvastatin. Will resume once patient improves clinically 8. Migraine headache -Holding sumatriptan -Holding topiramate 9. DVT prophylaxis -Heparin q8h Disposition: Patient is currently requiring pressor support. He is critically ill. Patient is FULL CODE. Vital Signs Vital Signs Date Time Temp Pulse Resp B/P (MAP) Pulse Ox O2 Delivery O2 Flow Rate FiO2 11/06/20 16:45 100 103/61 (75) 99 11/06/20 16:15 20 11/06/20 15:03 Nasal Cannula 2.0 11/06/20 13:56 98.0 Laboratory Data Labs 24H Laboratory Tests 2 11/06/20 08:34: Neutrophils (%) (Auto) , Nucleated Red Blood Cells % (auto) 0.0, Neutrophils 87H, Band Neutrophils 4, Lymphocytes (Manual) 6L, Monocytes (Manual) 3, Anisocytosis 1+, Macrocytosis 1+, Platelet Estimate DECREASED, Anion Gap 8, Glomerular Filtration Rate > 60.0, Lactic Acid Level 1.1, Calcium Level 8.5L, Total Bilirubin 0.4, Direct Bilirubin 0.1, Aspartate Amino Transf (AST/SGOT) 26, Alanine Aminotransferase (ALT/SGPT) 21, Alkaline Phosphatase 66, Total Creatine Kinase 30L, Creatine Kinase MB 3.0, Creatine Kinase MB Relative Index 10.00H, Troponin I 0.63H, C-Reactive Protein, Quantitative 16.30H, MR-Hqj-A-Type Natriuretic Peptide 5481H, Total Protein 5.7L, Albumin 2.1L, Albumin/Globulin Ratio 0.6, Amylase Level 16L 11/06/20 08:37: POC pH (Misc Panel) 7.297L, POC Base Excess (Misc Panel) -2.0, POC Saturated Percent O2 (Misc) 97, POC pO2 (Misc Panel) 100.0, POC pCO2 (Misc Panel) 49.8H, POC HCO3 (Misc Panel) 24.3, POC Total CO2 (Misc Panel) 26.0 11/06/20 13:52: Total Creatine Kinase 40, Creatine Kinase MB 3.7H, Creatine Kinase MB Relative Index 9.25H, Troponin I 0.57H, Prothrombin Time 14.6H, Prothromb Time International Ratio 1.12, Activated Partial Thromboplast Time 38.1, Urine Color YELLOW, Urine Appearance CLEAR, Urine pH 5.0, Urine Specific [place] 1.045, Urine Protein NEGATIVE, Urine Glucose (Auto)(UA) 3+H, Urine Ketones (Auto) TRACEH, Urine Blood NEGATIVE, Urine Nitrite NEGATIVE, Urine Bilirubin NEGATIVE, Urine Urobilinogen 0.2, Urine Leukocyte Esterase (Auto) NEGATIVE, Urine WBC (Auto) 0, Urine RBC (Auto) 0, Urine Hyaline Casts (Auto) 0, Urine Bacteria (Auto) NEGATIVE, Urine Squamous Epithelial Cells 0, Urine Mucus (Auto) SMALL, Urine Sperm (Auto) , Procalcitonin 0.29 CBC/BMP Laboratory Tests 11/06/20 08:34 Microbiology Microbiology 11/06/20 Urine Culture, Received Pending 11/06/20 Blood Culture, Received Pending 11/06/20 Respiratory Virus Panel (PCR) (THOMAS) - Final, Complete 11/06/20 Blood Culture, Received Pending Home Medications Scheduled Alogliptin Benzoate (Nesina) 12.5 Mg Tablet, 12.5 MG PO QHS Aspirin (Aspirin EC) 81 Mg Tablet.dr, 81 MG PO QHS Bupropion HCl (Bupropion HCl Sr) 150 Mg Tab.sr.12h, 150 MG PO BID Cyanocobalamin (Vitamin B-12) (B-12) 1,000 Mcg Tablet, 1,000 MCG PO DAILY Empagliflozin (Jardiance) 25 Mg Tablet, 12.5 MG PO DAILY Ferrous Sulfate (Ferrous Sulfate) 325 Mg Tablet.dr, 325 MG PO DAILY Magnesium Oxide (Magnesium Oxide) 400 Mg Tablet, 400 MG PO DAILY Metformin HCl (Metformin HCl) 1,000 Mg Tablet, 1,000 MG PO BID Multivitamin (Multivitamin) 1 Each Tablet, 1 TAB PO BID Pioglitazone HCl (Pioglitazone HCl) 45 Mg Tablet, 45 MG PO QHS Rosuvastatin Calcium (Rosuvastatin Calcium) 40 Mg Tablet, 40 MG PO QPM Sennosides (Eileen-Mario) 8.6 Mg Tablet, 8.6 MG PO BID Sucralfate (Sucralfate) 1 Gm/10 Ml Oral.susp, 1 GM PO ACHS Topiramate (Topiramate) 200 Mg Tablet, 100 MG PO BID Scheduled PRN Albuterol Sulfate (Albuterol Sulfate Hfa) 8.5 Gm Hfa.aer.ad, 2 PUFFS INH Q4H PRN for SHORTNESS OF BREATH Morphine Sulfate (Morphine Sulfate) 100 Mg/5 Ml Solution, 0.25 ML PO Q6H PRN for PAIN Prochlorperazine Maleate (Prochlorperazine Maleate) 10 Mg Tablet, 10 MG PO Q6H PRN for NAUSEA OR VOMITING Sildenafil Citrate (Sildenafil Citrate) 100 Mg Tablet, 50 MG PO DAILY PRN for ERECTILE DYSFUNCTION Sumatriptan Succinate (Sumatriptan Succinate) 100 Mg Tablet, 100 MG PO BID PRN for MIGRAINE Allergies Coded Allergies: No Known Allergies (Unverified , 01/12/19) A-FIB/CHADSVASC A-FIB History Current/History of A-Fib/PAF?: No ZAHRA ARTHUR DO November 06, 2020 18:16
[2020-11-06] MEDS: CEFEPIME HCL 2 GM in D5W MINI-BAG PLUS 50 ML IV SCH (21:06)
[2020-11-06 21:56] LABS: CK-MB VALUE MASS 4.6 NG/ML (<3.6); MB/CK RELATIVE INDEX 9.58 (< OR =4); TROPONIN I 0.39 NG/ML (< 0.10)
[2020-11-06] MEDS: VANCOMYCIN HCL 1,000 MG, VIAL MATE ADAPTER 1 EACH in NS 250 ML IV SCH (22:28)
[2020-11-06] MEDS: HEPARIN SOD (PORCINE) 5000UNITS/ML 1ML VIAL/SYRINGE SQ SCH (22:29)
[2020-11-07] VITALS (45 sets, daily range): BP systolic 93–118; BP diastolic 57–68
[2020-11-07 02:32] LABS: CK-MB VALUE MASS 4.3 NG/ML (<3.6); TROPONIN I 0.35 NG/ML (< 0.10)
[2020-11-07] MEDS: HEPARIN SOD (PORCINE) 5000UNITS/ML 1ML VIAL/SYRINGE SQ SCH ×3 (05:21→21:32)
[2020-11-07 05:52] LABS: HEMATOCRIT 31.7 % (42.0-52.0); HEMOGLOBIN 9.4 g/dl (13.5-17.5); MEAN CORPUSCULAR HEMOGLOBIN 31.3 pg (27.0-33.0); MEAN CORPUSCULAR HGB CONC 29.7 g/dl (32.0-36.5); MEAN CORPUSCULAR VOLUME 105.7 fl (80.0-96.0); PLATELET COUNT, AUTOMATED 162 10^3/uL (150-450); WHITE BLOOD COUNT 4.2 10^3/uL (4.0-10.0)
[2020-11-07 06:15] LABS: ALBUMIN 1.7 GM/DL (3.2-5.2); ALT/SGPT 19 U/L (12-78); BILIRUBIN,TOTAL 0.2 MG/DL (0.2-1.0); BLOOD UREA NITROGEN 23 MG/DL (7-18); CALCIUM LEVEL 8.4 MG/DL (8.8-10.2); CARBON DIOXIDE LEVEL 28 MEQ/L (21-32); CHLORIDE LEVEL 111 MEQ/L (98-107); CREATININE FOR GFR 0.48 MG/DL (0.70-1.30); GLOMERULAR FILTRATION RATE > 60.0 (>42); GLUCOSE, FASTING 172 MG/DL (70-100); POTASSIUM SERUM 4.4 MEQ/L (3.5-5.1); SODIUM LEVEL 141 MEQ/L (136-145); TOTAL PROTEIN 5.1 GM/DL (6.4-8.2)
[2020-11-07] MEDS: NOREPINEPHRINE BITARTRATE 8 MG in D5W 492 ML IV SCH ×2 (07:40→08:00)
[2020-11-07] MEDS ORDERED: PREVNAR 13 VACCINE SYRINGE IM ONE (09:00)
[2020-11-07] MEDS: CEFEPIME HCL 2 GM in D5W MINI-BAG PLUS 50 ML IV SCH ×2 (09:37→20:42)
[2020-11-07] MEDS: HumaLOG INSULIN (NovoLOG) PER UNIT SC SCH ×4 (09:38→20:24)
[2020-11-07] MEDS ORDERED: PREVNAR 13 VACCINE SYRINGE IM SCH (09:45)
--- NOTE | 2020-11-07 10:36 | RO ---
OPERATIVE NOTE DATE OF OPERATION: 11/06/2020 PREOPERATIVE DIAGNOSIS: Hypotension/septic shock. POSTOPERATIVE DIAGNOSIS: PROCEDURE: Right sided Internal Jugular Vein Central Venous Catheterization SURGEON: Bacilio Owens DO ATTENDING PHYSICIAN: Jaime Campbell MD in attendance through all parts of the procedure. ANESTHESIA: 1% Lidocaine CONSENT: Consent was obtained prior to the procedure. Indications, risks and benefits were explained at length and the procedure was performed. DESCRIPTION OF PROCEDURE: My hands were washed immediately prior to the procedure, I wore surgical cap, mask, full gown and sterile gloves throughout the procedure. The patient was placed in Trendelenburg position. The right neck was prepped using Chlorhexidine scrub and draped in sterile fashion using a full drape and sterile probe cover employed. The medial and lateral heads of the sternocleidomastoid muscle were identified as well as the carotid pulse. The internal jugular vein was identified using ultrasound. Anesthesia was achieved over the vein using 1% Lidocaine. On visualization of the right internal jugular vein the introducer needle was inserted into the right internal jugular vein under direct ultrasound visualization. Venous blood was withdrawn. The syringe was removed and guidewire was advanced into the introducer needle. The guidewire was visualized in the right internal jugular vein by ultrasound. A small incision was made at the skin surface with a scalpel and introducer needle was exchanged for a dilator over the guidewire. After appropriate dilation was obtained, the dilator was exchanged over the wire for a central venous catheter. The wire was removed and the catheter was sutured in place. A sterile SorbaView shield was placed over the catheter at the insertion site. The patient tolerated the procedure well without any hemodynamic compromise. At the end of the procedure all ports aspirated and flushed properly. A postprocedure chest x-ray was obtained which demonstrated proper position of the central venous catheter. JOE
[2020-11-07 11:58] LABS: CORTISOL BASELINE 26.3 UG/DL (4.3-22.4)
[2020-11-07] MEDS: VANCOMYCIN HCL 1,000 MG, VIAL MATE ADAPTER 1 EACH in NS 250 ML IV SCH ×2 (12:17→22:56)
--- NOTE | 2020-11-07 16:35 | REP ---
INDICATION: renal mets. COMPARISON: Comparison CT study July 27, 2020.. TECHNIQUE: Urinary tract sonography. FINDINGS: Scanning of the level urinary bladder shows no abnormality. The bladder is largely empty.. Renal cortical echogenicity pattern is increased bilaterally consistent with chronic medical renal disease.. There is no evidence of hydronephrosis on either side. There are 2 cysts in the mid and upper pole the right kidney measuring 1.5 and 1.2 cm in greatest diameter respectively. No renal mass lesion is observed on either side.. The right kidney measures 8.9 x 5.9 x 5.3 cm. Left renal dimensions are 10.0 x 4.1 x 5.0 cm. IMPRESSION: Increased renal cortical echogenicity consistent with chronic medical renal disease. 2 cysts in the right kidney. No evidence of hydronephrosis or renal mass lesion.. <Electronically signed by Giovani Winkler > 11/07/20 [id number]
[2020-11-07] MEDS: ROSUVASTATIN 10 MG TAB (CRESTOR) PO SCH (17:00)
[2020-11-07] MEDS: SUCRALFATE SUSP 1GM/10ML UD PO SCH ×2 (17:00→20:42)
--- NOTE | 2020-11-07 17:32 | IPNPDOC ---
Date Seen The patient was seen on 11/07/20. Progress Note SUBJECTIVE: Patient was seen and examined this morning. There have been no adverse events reported overnight. He is continued on Levophed although he is being weaned down. He denies shortness of breath and states that his breathing has improved. Nursing staff have reported issues with swallowing. Patient denies any chest pain. OBJECTIVE PHYSICAL EXAMINATION: VITAL SIGNS: Please see below. GENERAL: Awake, alert, and oriented. Appears in no acute distress. Lying in bed comfortably HEENT: Atraumatic, normocephalic. Eyes are nonicteric. Trachea is midline. Mucous membranes are pink and moist CARDIOVASCULAR: Normal S1, S2. Regular rate and rhythm. No clicks, rubs or murmurs. No JVD RESPIRATORY: Diminished breath sounds throughout. Some scattered wheezing and rhonchi bilaterally. Fine crackles in the bases. Symmetric chest expansion. ABDOMINAL: Soft, nondistended. Nontender. Normoactive bowel sounds throughout EXTREMITIES: No edema. Full and equal pulses in bilateral upper and lower extremities NEUROLOGICAL: No focal neurological deficits PSYCHOLOGICAL: Mood and affect appropriate LABORATORY DATA, IMAGING STUDIES, MICROBIOLOGY: Please see below. 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 Patient was found to be hypotensive. He was started on peripheral levophed. Central venous access was obtained and patient was admitted to hospitalist service. Patient is continued on Levophed although currently titrating down PROBLEMS: 1. Sepsis/Septic Shock 2/2 Pneumonia -Patient initially was tachycardic, hypotensive despite multiple fluid boluses, and leukopenic. Imaging demonstrated likely post obstructive pneumonia. Procalcitonin was elevated. -Patient received fluid resuscitation per Sepsis guidelines. Levophed had been started due to persistent hypotension with MAP of 55. -Levophed is being weaned today. He is currently down to 4mcg. -Blood cultures are negative after 24 hours. -He is continued on Cefepime and Vancomycin given his history chemotherapy and leukopenia 2. Pneumonia -Left lower lobe, Right lower lobe and right middle lobe consolidations consistent with pneumonia. Patient does have a cough. No fever in ED however patients stated that he has had a fever. -Continue Cefepime and Vancomycin as above -Procalcitonin elevated at 0.29. Will repeat tomorrow to see if decreasing -CRP elevated at 16.30. Will repeat inflammatory markers tomorrow -Sputum culture pending -Patient is currently on nasal cannula -Albuterol nebs -Acapella 3. Elevated Troponin likely secondary to Type II [place]/demand ischemia -Patient presented with elevated troponin of 0.63. Repeats have trended down. Last troponin of 0.35. Likely demand ischemia -Echocardiogram ordered. Results are pending 4. Dysphagia -Patient has some dysphagia today. This is chronic and likely secondary to his radiation therapy. -Speech and swallow evaluation. Recommendations for mechanical soft level 2 diet 5. Hypotension -Patient was fairly hypotensive. Likely secondary to sepsis/septic shock however may also consider possible malignant metastasis to adrenal glands. Will order cortisol and AM cortisol. Will order a renal ultrasound 6. Diabetes Mellitus Type 2 -Sliding scale insulin coverage 7. Squamous Cell Carcinoma of the lung -Patient has squamous cell carcinoma of the lung. He was diagnosed in Jul 2020. He has been started on chemotherapy and radiation. CT imaging demonstrates decrease in his right mass size. -He has a port on the left chest wall -Patient can follow-up with Hem/Onc outpatient 8. Depression -Will resume Wellbutrin 9. HLD -Will start Atorvastatin 10. Migraine headache -Holding sumatriptan -Continue topiramate 11. DVT prophylaxis -Heparin q8h Disposition: Patient remains on Levophed. He is being weaned down from levophed. Further disposition pending clinical improvement VS, I&O, [facility] Vital Signs/I&O Vital Signs Date Time Temp Pulse Resp B/P (MAP) Pulse Ox O2 Delivery O2 Flow Rate FiO2 11/07/20 12:00 98.5 109 20 98/65 (76) 98 Nasal Cannula 1.0 I&O- Last 24 Hours up to 6 AM 11/07/20 06:00 Intake Total 01111.35 ml Output Total 925 ml Balance 80114.35 ml Laboratory Data 24H LABS Laboratory Tests 2 11/06/20 17:37: Bedside Glucose (Misc Panel) 216H 11/06/20 20:52: Bedside Glucose (Misc Panel) 181H 11/06/20 21:15: Total Creatine Kinase 48, Creatine Kinase MB 4.6H, Creatine Kinase MB Relative Index 9.58H, Troponin I 0.39#H 11/07/20 02:00: Total Creatine Kinase 43, Creatine Kinase MB 4.3H, Creatine Kinase MB Relative Index 10.00H, Troponin I 0.35H 11/07/20 05:25: Nucleated Red Blood Cells % (auto) 0.0, Anion Gap 2L, Glomerular Filtration Rate > 60.0, Calcium Level 8.4L, Total Bilirubin 0.2, Aspartate Amino Transf (AST/SGOT) 20, Alanine Aminotransferase (ALT/SGPT) 19, Alkaline Phosphatase 63, Total Protein 5.1L, Albumin 1.7L, Albumin/Globulin Ratio 0.5, Cortisol Baseline 26.3H 11/07/20 07:48: Bedside Glucose (Misc Panel) 144H 11/07/20 11:26: Bedside Glucose (Misc Panel) 173H CBC/BMP Laboratory Tests 11/07/20 05:25 Microbiology Microbiology 11/06/20 Urine Culture - Final, Complete 11/06/20 Blood Culture - Preliminary, Resulted No growth after 24 hours . All specim... 11/06/20 Respiratory Virus Panel (PCR) (THOMAS) - Final, Complete 11/06/20 Blood Culture - Preliminary, Resulted No growth after 24 hours . All specim... ZAHRA ARTHUR DO November 07, 2020 17:31
[2020-11-07] MEDS: TOPIRAMATE (TopAMAX) 100 MG TAB PO SCH (20:42)
[2020-11-07] MEDS: buPROPion 75 MG TAB PO SCH (20:42)
[2020-11-07] MEDS ORDERED: CALCIUM CARBONATE 500 MG CHEW U/D PO PRN (23:15)
[2020-11-08] VITALS (20 sets, daily range): BP systolic 101–130; BP diastolic 60–76
[2020-11-08] MEDS: NOREPINEPHRINE BITARTRATE 8 MG in D5W 492 ML IV SCH (03:00)
[2020-11-08 05:15] LABS: HEMATOCRIT 27.9 % (42.0-52.0); HEMOGLOBIN 8.2 g/dl (13.5-17.5); MEAN CORPUSCULAR HEMOGLOBIN 30.7 pg (27.0-33.0); MEAN CORPUSCULAR HGB CONC 29.4 g/dl (32.0-36.5); MEAN CORPUSCULAR VOLUME 104.5 fl (80.0-96.0); PLATELET COUNT, AUTOMATED 113 10^3/uL (150-450); RED BLOOD COUNT 2.67 10^6/uL (4.30-6.10); WHITE BLOOD COUNT 1.8 10^3/uL (4.0-10.0)
[2020-11-08] MEDS: HEPARIN SOD (PORCINE) 5000UNITS/ML 1ML VIAL/SYRINGE SQ SCH ×3 (05:18→20:30)
[2020-11-08 05:41] LABS: ALBUMIN 1.6 GM/DL (3.2-5.2); ALT/SGPT 18 U/L (12-78); BILIRUBIN,TOTAL 0.2 MG/DL (0.2-1.0); BLOOD UREA NITROGEN 16 MG/DL (7-18); CALCIUM LEVEL 8.7 MG/DL (8.8-10.2); CARBON DIOXIDE LEVEL 32 MEQ/L (21-32); CHLORIDE LEVEL 110 MEQ/L (98-107); CREATININE FOR GFR 0.36 MG/DL (0.70-1.30); GLOMERULAR FILTRATION RATE > 60.0 (>42); GLUCOSE, FASTING 143 MG/DL (70-100); POTASSIUM SERUM 3.7 MEQ/L (3.5-5.1); SODIUM LEVEL 142 MEQ/L (136-145); TOTAL PROTEIN 5.5 GM/DL (6.4-8.2)
[2020-11-08] MEDS ORDERED: SODIUM CHLORIDE 0.9% INJ 10 ML SYR IV PRN (07:20)
[2020-11-08] MEDS: TOPIRAMATE (TopAMAX) 100 MG TAB PO SCH ×2 (08:38→20:25)
[2020-11-08] MEDS: CEFEPIME HCL 2 GM in D5W MINI-BAG PLUS 50 ML IV SCH (08:38)
[2020-11-08] MEDS: HumaLOG INSULIN (NovoLOG) PER UNIT SC SCH ×4 (08:38→20:26)
[2020-11-08] MEDS: SUCRALFATE SUSP 1GM/10ML UD PO SCH ×4 (08:39→20:25)
[2020-11-08] MEDS: buPROPion 75 MG TAB PO SCH ×2 (08:39→20:25)
[2020-11-08] MEDS: SENNA 8.6 MG TAB (SENOKOT) PO SCH (08:39)
[2020-11-08] MEDS ORDERED: guaiFENesin ER 600 MG TAB PO PRN (11:20)
--- NOTE | 2020-11-08 13:00 | IPNPDOC ---
Text Note Date of Service The patient was seen on 11/08/20. NOTE SUBJECTIVE: Patient states he is feeling much better, breathing more easily w ith no complaints. He states that the bilateral tingling of his toes has stopped, however his feet look more swollen than usual. There have been no adverse events reported overnight as per the nurse. The patient has not required any doses of Levophed for the last 24 hours maintaining a MAP of 77-83. OBJECTIVE: Patient was sitting comfortably in a chair currently on 1 L oxygen, saturating 96% eating breakfast. PHYSICAL EXAMINATION: VITAL SIGNS: Please see below. GENERAL: Awake, alert, and oriented. Appears in no acute distress. Lying in bed comfortably HEENT: Atraumatic, normocephalic. Eyes are nonicteric. Trachea is midline. Mucous membranes are pink and moist CARDIOVASCULAR: Normal S1, S2. Regular rate and rhythm. No clicks, rubs or murmurs. No JVD RESPIRATORY: Diminished breath sounds left more than the right. No wheezing or rhonchi heard. Fine crackles in the bases. Symmetric chest expansion. ABDOMINAL: Soft, nondistended. Nontender. Normoactive bowel sounds throughout EXTREMITIES: 1+ edema in bilateral feet and hands. Full and equal pulses in bilateral upper and lower extremities NEUROLOGICAL: No focal neurological deficits PSYCHOLOGICAL: Mood and affect appropriate LABORATORY DATA, IMAGING STUDIES, MICROBIOLOGY: Please see below. Echocardiogram: Pending DVT prophylaxis ordered?: Heparin ASSESSMENT AND PLAN: Patient is a 75 year old male with a past medical history significant for poorly differentiated squamous cell carcinoma currently undergoing chemotherapy and radiation who presented to the [facility] ER with complaint of shortness of breath. Patient was found to be hypotensive. He was started on peripheral levophed. Central venous access was obtained and patient was admitted to hospitalist service. Patient is continued on Levophed although currently titrating down PROBLEMS: 1. Sepsis/Septic Shock 2/2 Pneumonia -Patient initially was tachycardic, hypotensive despite multiple fluid boluses, and leukopenic. Imaging demonstrated likely post obstructive pneumonia. Procalcitonin was elevated. -Patient received fluid resuscitation per Sepsis guidelines. Levophed has been discontinued; stable MAP ranging from 77-83. -Blood cultures are negative after 24 hours. -Patient will be transitioned to oral antibiotics with the discontinuation of intravenous antibiotics. -Oral Levaquin 750 mg once daily started today. Patient will have to complete a dose of 7 days. -Patient is being downgraded from the ICU to PCU today. 2. Pneumonia -Left lower lobe, Right lower lobe and right middle lobe consolidations consistent with pneumonia. -Patient does have a cough with clear expectoration however not more than usual.. -Cefepime and Vancomycin discontinued today-transitioned to oral 750 mg Levaquin once daily for 7 days -Sputum culture-still pending -Patient is currently on nasal cannula 1L oxygen, saturating 96%. -Continue Albuterol nebs -Continue Acapella -Mucinex added to the regimen. 3. Elevated Troponin likely secondary to Type II [place]/demand ischemia -Patient presented with elevated troponin of 0.63. Repeats have trended down. Last troponin of 0.35. Likely demand ischemia -Echocardiogram ordered. Results are pending 4. Dysphagia -Patient states improvement in dysphagia today. This is chronic and likely secondary to his radiation therapy. -Speech and swallow evaluation recommend mechanical soft level 2 diet 5. Hypotension -Patient was fairly hypotensive initially. Likely secondary to sepsis/septic shock however suspicion was high for possible malignant metastasis to adrenal glands. -Renal ultrasound shows 2 renal cysts and ruled out any mass. -Cortisol a.m. is still pending. However total cortisol is slightly higher. 6. Diabetes Mellitus Type 2 -Sliding scale insulin coverage 7. Squamous Cell Carcinoma of the lung -Patient has squamous cell carcinoma of the lung. He was diagnosed in Jul 2020. He has been started on chemotherapy and radiation. CT imaging demonstrates decrease in his right mass size. -He has a port on the left chest wall -Patient can follow-up with Hem/Onc outpatient; patient follows with Dr. Servando Young and Dr. Renato Harvey - scheduled outpatient appointment on 11/11/2020 8. Depression -Continue Wellbutrin 9. HLD -Continue Atorvastatin 10. Migraine headache -Continue holding sumatriptan -Continue topiramate 11. DVT prophylaxis -Heparin q8h Disposition: Patient's levophed has been discontinued with stable blood pressure for over 24 hours, being downgraded to PCU. VS,Fishbone, I+O VS, Fishbone, I+O Laboratory Tests 11/08/20 05:01 Vital Signs Date Time Temp Pulse Resp B/P (MAP) Pulse Ox O2 Delivery O2 Flow Rate FiO2 11/08/20 08:44 118 101/65 (77) 92 Nasal Cannula 5/8/21 08:15 0.5 11/08/20 08:00 97.8 18 I&O- Last 24 Hours up to 6 AM 11/08/20 06:00 Intake Total 1494 ml Output Total 1250 ml Balance 244 ml GME ATTESTATION GME ATTESTATION My faculty preceptor for this patient encounter was physically present during the encounter and was fully available. All aspects of the patient interview, examination, medical decision making process, and medical care plan development were reviewed and approved by the faculty preceptor. The faculty preceptor is aware and concurs with the plan as stated in the body of this note and will attest to such by his/her cosignature. ATTENDING NOTE I, Mia Reyes, have independently examined this patient and performed my own physical exam, as well as reviewed the documentation and edited where necessary. I have discussed in detail with the resident / student the findings and plan of treatment as documented by the resident / student and edited their note. I agree with their findings and treatment plan and have edited their documentation. I will continue to follow the patient during this hospital stay. Shad Subramanian MD November 08, 2020 13:00 MIA REYES MD November 08, 2020 16:10
[2020-11-08 13:08] LABS: BASO % 0.5 % (0.0-1.0); HEMATOCRIT 29.5 % (42.0-52.0); HEMOGLOBIN 8.7 g/dl (13.5-17.5); LYMPH # 0.1 10^3/uL (1.5-5.0); LYMPH % 2.5 % (24.0-44.0); MEAN CORPUSCULAR HEMOGLOBIN 30.7 pg (27.0-33.0); MEAN CORPUSCULAR HGB CONC 29.5 g/dl (32.0-36.5); MEAN CORPUSCULAR VOLUME 104.2 fl (80.0-96.0); MONO # 0.2 10^3/uL (0.0-0.8); MONO % 11.1 % (2.0-8.0); NEUTROPHILS # 1.7 10^3/uL (1.5-8.5); NEUTROPHILS % 84.4 % (36.0-66.0); PLATELET COUNT, AUTOMATED 121 10^3/uL (150-450); RED BLOOD COUNT 2.83 10^6/uL (4.30-6.10)
[2020-11-08] MEDS: SODIUM CHLORIDE 0.9% INJ 10 ML SYR IV SCH ×2 (15:17→20:30)
[2020-11-08] MEDS: ROSUVASTATIN 10 MG TAB (CRESTOR) PO SCH (17:08)
[2020-11-08] MEDS ORDERED: RAMELTEON 8 MG TAB (ROZEREM) PO PRN (21:00)
[2020-11-09] VITALS (13 sets, daily range): BP systolic 105–137; BP diastolic 58–79
[2020-11-09] MEDS: LevoFLOXacin 750 MG TABLET PO SCH (05:06)
[2020-11-09] MEDS: HEPARIN SOD (PORCINE) 5000UNITS/ML 1ML VIAL/SYRINGE SQ SCH ×3 (05:06→21:47)
[2020-11-09] MEDS: SODIUM CHLORIDE 0.9% INJ 10 ML SYR IV SCH ×2 (05:07→12:39)
[2020-11-09 05:26] LABS: HEMOGLOBIN 7.8 g/dl (13.5-17.5); MEAN CORPUSCULAR HEMOGLOBIN 31.3 pg (27.0-33.0); MEAN CORPUSCULAR VOLUME 104.4 fl (80.0-96.0); PLATELET COUNT, AUTOMATED 113 10^3/uL (150-450); RED BLOOD COUNT 2.49 10^6/uL (4.30-6.10); WHITE BLOOD COUNT 1.4 10^3/uL (4.0-10.0)
[2020-11-09 06:17] LABS: ALBUMIN 1.6 GM/DL (3.2-5.2); ALT/SGPT 18 U/L (12-78); BILIRUBIN,TOTAL 0.1 MG/DL (0.2-1.0); BLOOD UREA NITROGEN 12 MG/DL (7-18); CALCIUM LEVEL 8.1 MG/DL (8.8-10.2); CARBON DIOXIDE LEVEL 35 MEQ/L (21-32); CHLORIDE LEVEL 110 MEQ/L (98-107); CREATININE FOR GFR 0.35 MG/DL (0.70-1.30); GLOMERULAR FILTRATION RATE > 60.0 (>42); GLUCOSE, FASTING 118 MG/DL (70-100); POTASSIUM SERUM 3.7 MEQ/L (3.5-5.1); SODIUM LEVEL 145 MEQ/L (136-145)
[2020-11-09 07:29] LABS: C REACTIVE PROTEIN QUANTITATIV 8.37 MG/DL (0.00-0.30)
[2020-11-09] MEDS: TOPIRAMATE (TopAMAX) 100 MG TAB PO SCH ×2 (08:11→21:46)
[2020-11-09] MEDS: HumaLOG INSULIN (NovoLOG) PER UNIT SC SCH ×4 (08:13→21:00)
[2020-11-09] MEDS: SENNA 8.6 MG TAB (SENOKOT) PO SCH (08:13)
[2020-11-09] MEDS: buPROPion 75 MG TAB PO SCH ×2 (08:13→21:47)
[2020-11-09] MEDS: SUCRALFATE SUSP 1GM/10ML UD PO SCH ×4 (08:13→21:47)
--- NOTE | 2020-11-09 10:38 | IPNPDOC ---
Text Note Date of Service The patient was seen on 11/09/20. NOTE Subjective: Patient is a 75-year-old male with a PMHx of Squamous cell Lung CA (on Chemotherapy / Radiation), Possible pulmonary fibrosis, MIRZA, NIDDM2, Depression, Hx of Prostate CA , who presented to the emergency room with shortness of breath. Emergency room, patient was found to be hypotensive. Patient was admitted at hospitalist service for further evaluation and treatment. Patient was initially admitted to the hospital service into the ICU where he received Levaquin and broad-spectrum antibiotics for suspected as postobstructive multifocal pneumonia. Patient was seen and examined at the bedside. Patient seen and examined and PCU. Denies any chest pain, palpitations, shortness of breath or any significant change in his baseline cough. Denies any nausea, vomiting, abdominal pain or diarrhea. Objective: Vitals (See below) General: Lying in bed, appears comfortable, AAOx3 HEENT: NC, AT CVS: +S1S2 Lungs: Fair air entry b/l, does not appear to be any appreciable rhonchi, crackles or wheezing Abdomen: Soft, nondistended, nontender Extremities: Lower extremities reveal 1-2+ pitting edema Imaging: CXR 6: Chronic fibrosis and interstitial changes. Right perihilar opacity which may be slightly decreased in size from prior examination. CTA chest 5: No CT evidence of pulmonary embolus. Some improvement is seen in the size the large right upper lobe malignant mass and mediastinal lymphadenopathy is improved since the prior study. There is extensive pulmonary fibrosis and honeycombing as before. There are new areas of infiltrate in the left lower lobe, right lower lobe, and right middle lobe consistent with pneumonia. CXR /6: Bilateral internal jugular central venous lines in place. No evidence of pneu mothorax. Elevated right hemidiaphragm and extensive interstitial lung disease again noted. Renal US 11/07: Increased renal cortical echogenicity consistent with chronic medical renal disease. 2 cysts in the right kidney. No evidence of hydronephrosis or renal mass lesion. Assessment and plan: s/p Sepsis/Septic Shock 2/2 multifocal pneumonia / postobstructive pneumonia - BP improved - s/p Levophed Multifocal pneumonia/postobstructive pneumonia - Patient denies any chest pain, shortness breath, palpitations - Hemodynamically stable and afebrile - CRP has been improving, will continue to trend - PCT was elevated - Blood cultures 11/06: Negative at 72 hours - c/w Levofloxacin; s/p Cefepime and Vancomycin Shortness of breath - likely 2/2 above - Supplemental oxygen requirement has been trending down - c/w Acapella / Incentive spirometry / Mucinex Elevated Troponin - likely 2/2 Type II ND / Demand ischemia - Denies any chest pain or palpitations - ECHO pending - Troponin have trended down Squamous Cell Carcinoma of the lung - Dx Jul 2020 - CT imaging demonstrates decrease in his right mass size - Currently on chemotherapy and radiation - Follows with Hem/Onc outpatient; patient follows with Dr. Servando Young and Dr. Renato Harvey - scheduled outpatient appointment on 11/11/2020 Dysphagia - likely 2/2 radiation - c/w Speech therapy and recommendations NIDDM2 - c/w ISS DLP - c/w Rosuvastatin Depression / Insomnia - c/w Bupropion / Ramelteon Migraine headache - Denies any headaches currently - c/w Topiramate / Holding sumatriptan GI prophylaxis - c/w Carafate DVT prophylaxis - c/w Heparin Disposition: - Awaiting clinical improvement VS,Javier, I+O VS, Javier, I+O Laboratory Tests 11/08/20 12:55 11/09/20 05:08 Vital Signs Date Time Temp Pulse Resp B/P (MAP) Pulse Ox O2 Delivery O2 Flow Rate FiO2 11/09/20 08:00 96.8 108 18 122/66 (84) 96 Nasal Cannula 1.0 I&O- Last 24 Hours up to 6 AM 11/09/20 06:00 Intake Total 330 ml Output Total 1400 ml Balance -1070 ml KENZIE SMITH MD November 09, 2020 10:38
[2020-11-09 12:46] LABS: HEMATOCRIT 25.7 % (42.0-52.0); HEMOGLOBIN 7.6 g/dl (13.5-17.5); MEAN CORPUSCULAR HEMOGLOBIN 30.8 pg (27.0-33.0); MEAN CORPUSCULAR HGB CONC 29.6 g/dl (32.0-36.5); PLATELET COUNT, AUTOMATED 106 10^3/uL (150-450); RED BLOOD COUNT 2.47 10^6/uL (4.30-6.10); WHITE BLOOD COUNT 1.6 10^3/uL (4.0-10.0)
[2020-11-09] MEDS: ROSUVASTATIN 10 MG TAB (CRESTOR) PO SCH (17:03)
[2020-11-09 18:56] LABS: BASO % 0.6 % (0.0-1.0); EOS % 0.6 % (0.0-3.0); LYMPH % 2.5 % (24.0-44.0); MONO # 0.2 10^3/uL (0.0-0.8); NEUTROPHILS # 1.3 10^3/uL (1.5-8.5); NEUTROPHILS % 83.7 % (36.0-66.0)
[2020-11-10 00:09] VITALS: BP 125/77
[2020-11-10 01:23] VITALS: BP 129/82
[2020-11-10] MEDS ORDERED: FUROSEMIDE 20MG/2ML VIAL (J1940) IV ONE (01:45)
[2020-11-10 04:00] VITALS: BP 126/77
[2020-11-10 05:19] LABS: HEMATOCRIT 33.2 % (42.0-52.0); HEMOGLOBIN 10.3 g/dl (13.5-17.5); MEAN CORPUSCULAR HEMOGLOBIN 29.7 pg (27.0-33.0); MEAN CORPUSCULAR VOLUME 95.7 fl (80.0-96.0); RED BLOOD COUNT 3.47 10^6/uL (4.30-6.10); WHITE BLOOD COUNT 1.9 10^3/uL (4.0-10.0)
[2020-11-10 05:22] LABS: PLATELET COUNT, AUTOMATED 97 10^3/uL (150-450)
[2020-11-10 05:43] LABS: ALT/SGPT 19 U/L (12-78); BILIRUBIN,TOTAL 0.3 MG/DL (0.2-1.0); BLOOD UREA NITROGEN 7 MG/DL (7-18); C REACTIVE PROTEIN QUANTITATIV 5.94 MG/DL (0.00-0.30); CALCIUM LEVEL 8.4 MG/DL (8.8-10.2); CARBON DIOXIDE LEVEL 32 MEQ/L (21-32); CHLORIDE LEVEL 108 MEQ/L (98-107); CREATININE FOR GFR 0.41 MG/DL (0.70-1.30); GLOMERULAR FILTRATION RATE > 60.0 (>42); GLUCOSE, FASTING 155 MG/DL (70-100); POTASSIUM SERUM 2.8 MEQ/L (3.5-5.1); SODIUM LEVEL 143 MEQ/L (136-145); TOTAL PROTEIN 5.7 GM/DL (6.4-8.2)
[2020-11-10] MEDS ORDERED: POTASSIUM CHLORIDE 10 MEQ SR TABLET PO ONE (06:00)
[2020-11-10] MEDS: LevoFLOXacin 750 MG TABLET PO SCH (06:19)
[2020-11-10] MEDS: HEPARIN SOD (PORCINE) 5000UNITS/ML 1ML VIAL/SYRINGE SQ SCH ×2 (06:20→14:02)
[2020-11-10] MEDS: KCL 10MEQ/100ML SWI (KRUN) 10 MEQ in IV 1 EA IV SCH ×3 (06:21→08:48)
[2020-11-10] MEDS: SUCRALFATE SUSP 1GM/10ML UD PO SCH ×3 (06:26→17:22)
[2020-11-10 07:58] LABS: MAGNESIUM LEVEL 1.7 MG/DL (1.8-2.4)
[2020-11-10 08:00] VITALS: BP 131/72
[2020-11-10] MEDS: SENNA 8.6 MG TAB (SENOKOT) PO SCH (08:03)
[2020-11-10] MEDS: HumaLOG INSULIN (NovoLOG) PER UNIT SC SCH ×3 (08:03→17:22)
[2020-11-10] MEDS: buPROPion 75 MG TAB PO SCH (08:03)
[2020-11-10] MEDS: TOPIRAMATE (TopAMAX) 100 MG TAB PO SCH (08:03)
[2020-11-10] MEDS ORDERED: KCL 10MEQ/100ML SWI (KRUN) 10 MEQ in IV 1 EA IV SCH (09:00)
--- NOTE | 2020-11-10 10:01 | ECHO ---
DATE OF PROCEDURE: 11/07/2020 Age: 75 Gender: Male Height: 168 cm Weight: 53 kg REFERRING PHYSICIAN: Bacilio Owens DO INDICATION: Dyspnea, unspecified. MEASUREMENTS: 2D Measurements: Aortic root 3.8 cm Left atrium 2.7 cm Intraventricular septum 1.17 cm Posterior wall 1.22 cm Left ventricle diastole 3.3 cm Aortic annulus 2.3 cm Inferior vena cava 1.6 cm Doppler Measurements: No aortic regurgitation No aortic stenosis Aortic valve velocity 156 cm/s LVOT VTI 73.8 cm/s No mitral regurgitation No mitral stenosis Mitral E velocity 58.3 cm/s Mitral A velocity 47.1 cm/s Mitral deceleration time 231 msec Very mild tricuspid regurgitation Estimated right ventricular systolic pressure 27-32 mmHg Estimated right atrial pressure 5-10 mmHg No pulmonic regurgitation Pulmonary artery acceleration time 90 msec MITRAL ANNULAR TISSUE DOPPLER E prime septal 4.8 cm/s, E prime lateral 4.5 cm/s DESCRIPTION: Rhythm was predominantly sinus tachycardia. No pericardial effusion. Image quality was adequate. This was a 2D, M-mode, color flow Doppler, and pulsed wave Doppler examination including mitral annular tissue Doppler. CONCLUSIONS: 1. Borderline concentric left ventricular hypertrophy. Hyperdynamic LV systolic function. LVEF 70% to 75% by visual assessment. No regional LV wall motion abnormalities. Grade 1 LV diastolic dysfunction. Normal left atrial size. 2. Suggestive of mild elevation of pulmonary artery systolic pressure. 3. Mild mitral annular calcification. No mitral regurgitation. 4. Mild aortic valve sclerosis of a 3-cuspid aortic valve. No aortic regurgitation. 5. Small circumferential pericardial effusion without diastolic chamber collapse. 6. Mild dilatation of the aortic root at the level of the sinus of Valsalva. MTDD
[2020-11-10] MEDS ORDERED: SLF 3 ML SYR IV PRN (10:40)
[2020-11-10] MEDS ORDERED: MAG SULF 1GM/100ML (MAG RUN) 1 GM in IV 1 EA IV ONE (11:00)
[2020-11-10] MEDS ORDERED: BISACODYL 10 MG SUPP PR PRN (11:15)
[2020-11-10 12:00] VITALS: BP 127/76
[2020-11-10] MEDS ORDERED: SLF 3 ML SYR IV SCH (14:00)
[2020-11-10] MEDS ORDERED: LEVO750T13 PO (14:09)
--- NOTE | 2020-11-10 16:23 | DS.PDOC ---
Discharge Summary General Date of Admission November 06, 2020 at 13:13 Date of Discharge 11/10/20 Attending Physician: TYRON NAIK MD Discharge Summary PROCEDURES PERFORMED DURING STAY: Right Internal Jugular Vein cannulation with Central Venous Catheter placement ADMITTING DIAGNOSES: 1. Hypotension 2/2 Sepsis/Septic shock 2. Multifocal Pneumonia 3. Type II MO/Demand Ischemia 4. Squamous Cell Carcinoma of the lung 5. DMII DISCHARGE DIAGNOSES: 1. Hypotension 2/2 Sepsis/Septic shock 2. Multifocal Pneumonia 3. Type II MO/Demand Ischemia 4. Squamous Cell Carcinoma of the lung 5. DMII COMPLICATIONS/CHIEF COMPLAINT: Pnemonia,Sepsis. 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 Patient stated that at baseline he does have shortness of breath. However, he had noticed worsening short of breath He himself denies any fevers, however, his who accompanied him stated that she hadn't notice a low-grade temperature on him. Additionally, she stated that he has been coughing more than usual. She states that he's been coughing up some thick sputum. He denied any chest pain. He states that his shortness of breath is not changed with lying flat. Additionally, the patient states that he feels weak and does get lightheaded when he tries to walk. On presentation to the emergency department, patient was tachycardic and hypotensive. Additionally, he was hypoxic requiring 2 L nasal cannula. Chest x- ray obtained demonstrated chronic fibrotic and interstitial changes as well as previous right lung mass which looks decrease in size of his previous examination. This was followed with a CT angiogram of the chest which demonstrated no evidence of pulmonary embolism. However, there was continued large right upper lobe malignant mass with mediastinal adenopathy. Additionally, there was extensive pulmonary fibrosis and honeycombing. Lastly, there was new areas of infiltrate in the left lower lobe as well as right lower lobe and right middle lobe consistent with pneumonia. The patient's labs demonstrated a pancytopenia. Additionally, his chemistries demonstrated an elevated troponin of 0.63. His CRP was elevated at 16.3. Hospitalist medicine was consulted for admission and further evaluation and management. On evaluation in the ED the patient was septic appearing. He was hypotensive despite multiple fluid boluses. An additional bolus of IV fluid was ordered. Patient was asymptomatic however BP was not fluid responsive. Peripheral Levophed was started. Central venous access was obtained and patient was admitted HOSPITAL COURSE: During the patients hospitalization he was treated with IV ant ibiotics for multifocal pneumonia. His Procalcitonin was elevated at 0.29. He was titrated off of Levophed and transferred to PCU. He was requiring supplemental oxygen. His hypoxia was felt to be secondary to his current pneumonia in conjunction with his history of pulmonary fibrosis. An echocardiog teodoro was ordered as well which did not demonstrate any acute findings and an LVEF of 75%. Additionally, he did receive a large quantity of IV fluids during his initial volume resuscitation of about 8L. He was given IV lasix. He was also found to be hypokalemic and hypomagnesemic likely secondary to diuresis. He was seen by physical therapy and transitioned to oral antibiotics. Patient was then planned to be discharged home with home health and supplemental oxygen. CLINICAL PROBLEMS ADDRESSED DURING PATIENTS HOSPITALIZATION # Sepsis/Septic Shock 2/2 multifocal pneumonia / postobstructive pneumonia - Patient received IV antibiotics with Cefepime and Vanc. Transitioned to Oral Levaquin at discharge for 5 days -s/p Levophed #Multifocal pneumonia/postobstructive pneumonia - Blood culture remained negative. CRP and inflammatory markers trended down -Transitioned to PO Levaquin with instructions to continue for 5 days # Hypoxia -Patient requiring supplemental oxygen. Desaturations to 85% with ambulation and rest. Likely secondary to resolving pneumonia and pulmonary fibrosis. -Discharge home with supplemental oxygen with plans to follow-up with PCP #Elevated Troponin - likely 2/2 Type II MO / Demand ischemia - Echo resulted without any acute findings. -LVEF: 70-75% #Electrolyte misbalance -Patient given PO and oral potassium as well as mg -Recommend follow-up with PCP to recheck K and Mg #Squamous Cell Carcinoma of the lung - Dx Jul 2020 - CT imaging demonstrates decrease in his right mass size - Currently on chemotherapy and radiation - Follows with Hem/Onc outpatient; patient follows with Dr. Servando Young and Dr. Renato Harvey - scheduled outpatient appointment on 11/11/2020 #Dysphagia - likely 2/2 radiation - c/w Speech therapy and recommendations #NIDDM2 - c/w ISS #DLP - c/w Rosuvastatin #Depression / Insomnia - c/w Bupropion / Ramelteon #Migraine headache - Denies any headaches currently -Home medications resumed on discharge DISCHARGE MEDICATIONS: Please see below. ALLERGIES: Please see below. PHYSICAL EXAMINATION ON DISCHARGE: VITAL SIGNS: Please see below. GENERAL: Awake, alert, and oriented. Appears in no acute distress. Lying in bed comfortably HEENT: Atraumatic, normocephalic. Eyes are nonicteric. Trachea is midline. Mucou s membranes are pink and moist. NECK: No palpable cervical, axillary, or supraclavicular lymphadenopathy. Right IJ Central venous catheter removed with site bandaged CARDIOVASCULAR EXAMINATION: Normal S1, S2. Regular rate and rhythm. No clicks, rubs, or murmurs. No JVD. Left chest infusaport in place RESPIRATORY EXAMINATION: Diminished breath sounds throughout. No wheezing. No rhonchi.Fine crackles in the bases. Symmetric chest expansion. ABDOMINAL EXAMINATION: Soft, nondistended. Nontender. Normoactive bowel sounds throughout EXTREMITIES: No edema. Full and equal pulses in bilateral upper and lower extremities SKIN: No rashes or lesions NEUROLOGICAL EXAMINATION: No focal neurological deficits PSYCHIATRIC EXAMINATION: Mood and affect appear appropriate LABORATORY DATA: Please see below. IMAGING: INDICATION: SEPSIS/SHOCK COMPARISON: 09/12/2020 TECHNIQUE: Portable AP view of the chest FINDINGS: Mediastinum and cardiac silhouette are relatively stable. Kodzpo-[id number]-[id number] identi fied with tip in the SVC. The lung avendano demonstrate diffuse chronic interstitial changes and fibrosis similar to prior examination. A vague right hilar opacity appears decreased from prior examination. No obvious new acute consolidation, effusion, or pneumothorax. Skeletal structures intact. IMPRESSION: Chronic fibrosis and interstitial changes. Right perihilar opacity which may be slightly decreased in size from prior examination. <Electronically signed by Manolo Mar > 11/06/20 0850 INDICATION: SOB. Patient gives a history of prostate carcinoma. 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 COMPARISON: Comparison is made with today's chest x-ray as well as chest x-ray from September 12, 2020. Comparison chest CT imaging 25 July 2020.. TECHNIQUE: Contrast dose: 75 ML of Isovue [address] technique: Helical scanning is acquired and overlapping 1.5 mm and contiguous 3 mm axial images are reformatted. In addition, maximum intensity projection and multiplanar re-formation images are generated in sagittal and coronal imaging projections. FINDINGS: There is good opacification in the pulmonary arterial tree. There is no evidence of vessel cut off or filling defect to suggest pulmonary embolus. Homogeneous opacity is seen in the thoracic aorta. There is no evidence of aneurysm or dissection. Lung window settings demonstrate the recently demonstrated a right upper lobe mass is again seen measuring 5.4 x 5.0 x 4.3 cm. It appears slightly smaller than on July 25, 2020. There are extensive peripheral areas of subpleural honeycombing and fibrosis in the lung avendano bilaterally similar to the prior study. There are new areas of parenchymal opacity as well including a 2.4 cm nodular opacity in the left perihilar region of the left lower lobe. This and adjacent consolidation is seen consistent with left lower lobe infiltrate. Another area of increased markings compared to the July 25, 2020 study is seen in the right lower lobe and middle lobe. There is a new small right pleural effusion. Previously noted subcarinal and precarinal and paratracheal adenopathy appears somewhat improved although there is persistent adenopathy. No adrenal mass is seen. The visualized upper abdominal structures are unchanged and unremarkable. There are granulomatous calcifications in the spleen again noted. In the upper abdomen, IMPRESSION: No CT evidence of pulmonary embolus. Some improvement is seen in the size the large right upper lobe malignant mass and mediastinal lymphadenopathy is improved since the prior study. There is extensive pulmonary fibrosis and honeycombing as before. There are new areas of infiltrate in the left lower lobe, right lower lobe, and right middle lobe consistent with pneumonia. <Electronically signed by Giovani Winkler > 11/06/20 1053 INDICATION: central line placement. COMPARISON: Comparison chest x-ray 06 Nov 2020. TECHNIQUE: Portable upright AP chest radiograph. FINDINGS: A right internal jugular central venous line is seen with its tip in the expected location of the SVC right atrial junction. A left IJ line [id number]-C-Ljpv catheter remains in place also in the expected location of the SVC. Right hemidiaphragm is again noted to be elevated. Extensive interstitial lung disease fibrosis pattern is noted. There is some pleural thickening on the right which is more prominent than previously. There is no evidence of pneumothorax. Lung avendano are unchanged.. IMPRESSION: Bilateral internal jugular central venous lines in place. No evidence of pneumothorax. Elevated right hemidiaphragm and extensive interstitial lung disease again noted.. <Electronically signed by Giovani Winkler > 11/06/20 1350 INDICATION: renal mets. COMPARISON: Comparison CT study July 27, 2020.. TECHNIQUE: Urinary tract sonography. FINDINGS: Scanning of the level urinary bladder shows no abnormality. The bladder is largely empty.. Renal cortical echogenicity pattern is increased bilaterally consistent with chronic medical renal disease.. There is no evidence of hydronephrosis on either side. There are 2 cysts in the mid and upper pole the right kidney measuring 1.5 and 1.2 cm in greatest diameter respectively. No renal mass lesion is observed on either side.. The right kidney measures 8.9 x 5.9 x 5.3 cm. Left renal dimensions are 10.0 x 4.1 x 5.0 cm. IMPRESSION: Increased renal cortical echogenicity consistent with chronic medical renal disease. 2 cysts in the right kidney. No evidence of hydronephrosis or renal mass lesion .. <Electronically signed by Giovani Winkler > 11/07/20 1631 ECHOCARDIOGRAM DATE OF PROCEDURE: 11/07/2020 Age: 75 Gender: Male Height: 168 cm Weight: 53 kg REFERRING PHYSICIAN: Zahra Arthur DO INDICATION: Dyspnea, unspecified. MEASUREMENTS: 2D Measurements: Aortic root 3.8 cm Left atrium 2.7 cm Intraventricular septum 1.17 cm Posterior wall 1.22 cm Left ventricle diastole 3.3 cm Aortic annulus 2.3 cm Inferior vena cava 1.6 cm Doppler Measurements: No aortic regurgitation No aortic stenosis Aortic valve velocity 156 cm/s LVOT VTI 73.8 cm/s No mitral regurgitation No mitral stenosis Mitral E velocity 58.3 cm/s Mitral A velocity 47.1 cm/s Mitral deceleration time 231 msec Very mild tricuspid regurgitation Estimated right ventricular systolic pressure 27-32 mmHg Estimated right atrial pressure 5-10 mmHg No pulmonic regurgitation Pulmonary artery acceleration time 90 msec MITRAL ANNULAR TISSUE DOPPLER E prime septal 4.8 cm/s, E prime lateral 4.5 cm/s DESCRIPTION: Rhythm was predominantly sinus tachycardia. No pericardial effusion. Image quality was adequate. This was a 2D, M-mode, color flow Doppler,and pulsed wave Doppler examination including mitral annular tissue Doppler. CONCLUSIONS: 1. Borderline concentric left ventricular hypertrophy. Hyperdynamic LV systolicfunction. LVEF 70% to 75% by visual assessment. No regional LV wall motion abnormalities. Grade 1 LV diastolic dysfunction. Normal left atrial size. 2. Suggestive of mild elevation of pulmonary artery systolic pressure. 3. Mild mitral annular calcification. No mitral regurgitation. 4. Mild aortic valve sclerosis of a 3-cuspid aortic valve. No aortic regurgitation. 5. Small circumferential pericardial effusion without diastolic chamber collapse. 6. Mild dilatation of the aortic root at the level of the sinus of Valsalva. PROGNOSIS: Fair ACTIVITY: [As tolerated]. DIET: Mechanical Soft Level 2, consistent carb DISCHARGE PLAN: Patient is to be discharged home with home health. He is to follow-up with his PCP in 5-10 days for hospital follow-up and repeat BMP and Mag level. He is to follow-up with his Oncologist in 1-2 weeks. He is to continue Levaquin for 5 more days to complete treatment DISPOSITION: . DISCHARGE INSTRUCTIONS: 1. Continue Levaquin for 5 more days 2. Following with PCP in 5-10 days for hospital discharge follow-up and repeat BMP and Mg level 3. Follow-up with Oncology in 1-2 weeks DISCHARGE CONDITION: [Stable]. TIME SPENT ON DISCHARGE: Greater than 40 minutes. Vital Signs/I&Os Vital Signs Date Time Temp Pulse Resp B/P (MAP) Pulse Ox O2 Delivery O2 Flow Rate FiO2 11/10/20 12:00 2.0 11/10/20 12:00 97.1 98 20 127/76 (93) 95 Nasal Cannula I&O- Last 24 Hours up to 6 AM 11/10/20 06:00 Intake Total 2300 ml Output Total 2800 ml Balance -500 ml Laboratory Data Labs 24H Laboratory Tests 2 11/09/20 16:39: Bedside Glucose (Misc Panel) 139H 11/09/20 21:42: Bedside Glucose (Misc Panel) 145H 11/10/20 04:47: Nucleated Red Blood Cells % (auto) 0.0, Immature Platelet Fraction 2.5, Anion Gap 3L, Glomerular Filtration Rate > 60.0, Calcium Level 8.4L, Magnesium Level 1.7L, Total Bilirubin 0.3#, Aspartate Amino Transf (AST/SGOT) 18, Alanine Aminotransferase (ALT/SGPT) 19, Alkaline Phosphatase 64, C-Reactive Protein, Quantitative 5.94H, Total Protein 5.7L, Albumin 2.0#L, Albumin/Globulin Ratio 0.5 11/10/20 11:39: Bedside Glucose (Misc Panel) 109 CBC/BMP Laboratory Tests 11/10/20 04:47 11/10/20 12:07 FSBS Laboratory Tests Test 11/09/20 16:39 11/09/20 21:42 11/10/20 11:39 Range/Units Bedside Glucose (Misc Panel) 139 145 109 83-110 MG/DL Microbiology Microbiology 11/06/20 Urine Culture - Final, Complete 11/06/20 Blood Culture - Preliminary, Resulted No Growth after 72 hours. All specime... 11/06/20 Respiratory Virus Panel (PCR) (THOMAS) - Final, Complete 11/06/20 Blood Culture - Preliminary, Resulted No Growth after 72 hours. All specime... Discharge Medications Scheduled Alogliptin Benzoate (Nesina) 12.5 Mg Tablet, 12.5 MG PO QHS, (Reported) Aspirin (Aspirin EC) 81 Mg Tablet.dr, 81 MG PO QHS, (Reported) Bupropion HCl (Bupropion HCl Sr) 150 Mg Tab.sr.12h, 150 MG PO BID, (Reported) Cyanocobalamin (Vitamin B-12) (B-12) 1,000 Mcg Tablet, 1,000 MCG PO DAILY, (Reported) Empagliflozin (Jardiance) 25 Mg Tablet, 12.5 MG PO DAILY, (Reported) Ferrous Sulfate (Ferrous Sulfate) 325 Mg Tablet.dr, 325 MG PO DAILY, (Reported) Levofloxacin (Levofloxacin) 750 Mg Tablet, 750 MG PO DAILY@06 Magnesium Oxide (Magnesium Oxide) 400 Mg Tablet, 400 MG PO DAILY, (Reported) Metformin HCl (Metformin HCl) 1,000 Mg Tablet, 1,000 MG PO BID, (Reported) Multivitamin (Multivitamin) 1 Each Tablet, 1 TAB PO BID, (Reported) Pioglitazone HCl (Pioglitazone HCl) 45 Mg Tablet, 45 MG PO QHS, (Reported) Rosuvastatin Calcium (Rosuvastatin Calcium) 40 Mg Tablet, 40 MG PO QPM, (Reported) Sennosides (Eileen-Mario) 8.6 Mg Tablet, 8.6 MG PO BID, (Reported) Sucralfate (Sucralfate) 1 Gm/10 Ml Oral.susp, 1 GM PO ACHS, (Reported) Topiramate (Topiramate) 200 Mg Tablet, 100 MG PO BID, (Reported) Scheduled PRN Albuterol Sulfate (Albuterol Sulfate Hfa) 8.5 Gm Hfa.aer.ad, 2 PUFFS INH Q4H PRN for SHORTNESS OF BREATH, (Reported) Morphine Sulfate (Morphine Sulfate) 100 Mg/5 Ml Solution, 0.25 ML PO Q6H PRN for PAIN, (Reported) Prochlorperazine Maleate (Prochlorperazine Maleate) 10 Mg Tablet, 10 MG PO Q6H PRN for NAUSEA OR VOMITING, (Reported) Sildenafil Citrate (Sildenafil Citrate) 100 Mg Tablet, 50 MG PO DAILY PRN for ERECTILE DYSFUNCTION, (Reported) Sumatriptan Succinate (Sumatriptan Succinate) 100 Mg Tablet, 100 MG PO BID PRN for MIGRAINE, (Reported) Allergies Coded Allergies: No Known Allergies (Unverified , 01/12/19) ZAHRA ARTHUR DO November 10, 2020 16:23
== END 2020-11-10 17:45 | disposition home health service (06) | DRG 871 ==
LOC: M ED 08:21 → EDBD 08:21 → M ED INP 13:13 → ENRESERV 15:36 → M ICU 17:10 → M PCU 11-08 16:18
PROVIDERS: ADMIT Internal Medicine; ATTEND Internal Medicine
PROC: 02HV33Z Insertion of Infusion Device into Superior Vena Cava, Percutaneous Approach (ICD-10-PCS; principal; 2020-11-06)
PROC: 30233N1 Transfusion of Nonautologous Red Blood Cells into Peripheral Vein, Percutaneous Approach (ICD-10-PCS; 2020-11-09)
DX: A41.9 Sepsis, unspecified organism (principal); R65.21 Severe sepsis with septic shock; J18.9 Pneumonia, unspecified organism; I21.A1 Myocardial infarction type 2; C34.11 Malignant neoplasm of upper lobe, right bronchus or lung; E11.9 Type 2 diabetes mellitus without complications; G47.33 Obstructive sleep apnea (adult) (pediatric); G43.909 Migraine, unspecified, not intractable, without status migrainosus; J84.10 Pulmonary fibrosis, unspecified; E83.42 Hypomagnesemia; E87.6 Hypokalemia; F32.9 Major depressive disorder, single episode, unspecified; R13.10 Dysphagia, unspecified; Z85.46 Personal history of malignant neoplasm of prostate; Z87.891 Personal history of nicotine dependence; E78.5 Hyperlipidemia, unspecified; Z79.82 Long term (current) use of aspirin; Z79.899 Other long term (current) drug therapy

== ENCOUNTER 2020-12-15 18:24 | Inpatient (IN) | payer MEDICARE, OTHER ==
[~2020-12-15] VITALS: Ht 167.6 cm; Wt 48.9 kg
[~2020-12-15 18:24] MED LIST changes: +ALBU8.5H INH; +JARD1TAB3 PO; +LEVO750T13 PO; +METF-877 PO; +MORP20SO3 PO
[2020-12-15] MEDS ORDERED: LISI40TA4 PO (18:53)
[2020-12-15] MEDS ORDERED: PROP60TA14 PO (18:53)
[2020-12-15 19:06] LABS: BASO % 0.3 % (0.0-1.0); EOS % 0.2 % (0.0-3.0); HEMATOCRIT 35.7 % (42.0-52.0); HEMOGLOBIN 10.5 g/dl (13.5-17.5); LYMPH # 0.2 10^3/uL (1.5-5.0); MEAN CORPUSCULAR HEMOGLOBIN 30.5 pg (27.0-33.0); MEAN CORPUSCULAR HGB CONC 29.4 g/dl (32.0-36.5); MEAN CORPUSCULAR VOLUME 103.8 fl (80.0-96.0); MONO % 9.8 % (2.0-8.0); NEUTROPHILS # 8.5 10^3/uL (1.5-8.5); NEUTROPHILS % 87.3 % (36.0-66.0); PLATELET COUNT, AUTOMATED 332 10^3/uL (150-450); RED BLOOD COUNT 3.44 10^6/uL (4.30-6.10); WHITE BLOOD COUNT 9.7 10^3/uL (4.0-10.0)
[2020-12-15 19:25] LABS: ALBUMIN 2.5 GM/DL (3.2-5.2); ALT/SGPT 14 U/L (12-78); BILIRUBIN,DIRECT 0.1 MG/DL (0.0-0.2); BILIRUBIN,TOTAL 0.3 MG/DL (0.2-1.0); BLOOD UREA NITROGEN 21 MG/DL (7-18); CALCIUM LEVEL 8.8 MG/DL (8.8-10.2); CARBON DIOXIDE LEVEL 41 MEQ/L (21-32); CHLORIDE LEVEL 97 MEQ/L (98-107); CK-MB VALUE MASS < 1.0 NG/ML (<3.6); CPK CREATINE PHOSPHOKINASE 23 U/L (39-308); CREATININE FOR GFR 0.71 MG/DL (0.70-1.30); GLOMERULAR FILTRATION RATE > 60.0 (>42); GLUCOSE, FASTING 120 MG/DL (70-100); MB/CK RELATIVE INDEX 4.35 (< OR =4); POTASSIUM SERUM 4.3 MEQ/L (3.5-5.1); SODIUM LEVEL 138 MEQ/L (136-145); TROPONIN I < 0.02 NG/ML (< 0.10)
--- NOTE | 2020-12-15 19:27 | REP ---
INDICATION: DYSPNEA/COUGH. COMPARISON: Multiple the latest 11/06/2020 TECHNIQUE: Portable FINDINGS: The technique utilized in obtaining the radiograph has magnified the cardiac silhouette and accentuated the interstitial markings. Cardiomediastinal silhouette is unchanged. The MediPort device is seen the tip of which is in the superior vena cava. The right sided central venous catheter seen previously has been removed. There is diffuse interstitial fibrotic change status quo. No acute patchy parenchymal opacities or pleural effusions have developed. IMPRESSION: Chronic lung field changes and other findings as described above. <Electronically signed by Modesto Hart > 12/15/201923
[2020-12-15] MEDS ORDERED: ISOVUE-370 76% 100ML VIAL As Ordered ONE (20:50)
[2020-12-15] MEDS ORDERED: COMBIVENT RESPIMAT 100-20MCG INHALER 4GM INH ONE (20:50)
[2020-12-15] MEDS: buPROPion **SR TABLET** (ZYBAN) 150MG PO SCH (21:00)
[2020-12-15 21:30] LABS: ABG BASE EXCESS 9.1 (-2.0-2.0); ABG HCO3 36.6 MEQ/L (22.0-26.0); ABG O2 SATURATION 98.5 % (95.0-99.0); ABG PARTIAL PRESSURE O2 131.4 mmHg (75.0-100.0); ABG STANDARD HCO3 32.9 MEQ/L (22.0-26.0); ABG TOTAL CO2 38.6 MEQ/L (23.0-31.0)
[2020-12-15 21:32] LABS: ABG PARTIAL PRESSURE CO2 66.2 mmHg (35.0-45.0)
--- NOTE | 2020-12-15 22:10 | REPVR ---
PROCEDURE INFORMATION: Exam: CTA Chest With Contrast Exam date and time: 12/15/2020 9:03 PM Age: 75 years old Clinical indication: Shortness of breath; Additional info: SOB hypoxia TECHNIQUE: Imaging protocol: Computed tomographic angiography of the chest with contrast. 3D rendering (Not supervised by radiologist): MIP and/or 3D reconstructed images were created by the technologist. Radiation optimization: All CT scans at this facility use at least one of these dose optimization techniques: automated exposure control; mA and/or kV adjustment per patient size (includes targeted exams where dose is matched to clinical indication); or iterative reconstruction. Contrast material: ISOVUE 370; Contrast volume: 75 ml; Contrast route: INTRAVENOUS (IV); COMPARISON: CT ANGIO CHEST 11/06/2020 10:17 AM FINDINGS: Pulmonary arteries: There is opacification of the pulmonary arteries with no evidence of pulmonary embolus. There is no evidence of pneumothorax. Aorta: There is opacification of the aorta which appears intact. Lungs: There are changes of bullous emphysema and pulmonary fibrosis. Pleural spaces: A small right pleural effusion of the previous examination has resolved. Heart: Unremarkable. No cardiomegaly. No pericardial effusion. Lymph nodes: This further decrease in size of the low large right suprahilar mass since the previous exams. This now measures approximately 4.5 cm some central necrosis. The mediastinal and right hilar lymphadenopathy has further decreased as well. Diaphragm: There is continued elevation of the right hemidiaphragm. Bones/joints: Unremarkable. No acute fracture. Soft tissues: Unremarkable. IMPRESSION: 1. No evidence of pulmonary embolus. 2. The large right suprahilar mass lesion has further decreased in the lymphadenopathy is further decreased in size. 3. Severe changes of bullous emphysema and pulmonary fibrosis. Electronically signed by: John Macdonald On 12/15/2020 22:10:49 PM
[2020-12-15] MEDS ORDERED: IPRATROPIUM 0.5MG/ALBUTEROL 2.5MG INH SOL UD 3ML (DUONEB) NEB ONE ×2 (22:35→23:35)
[2020-12-16] MEDS ORDERED: FERR324T21 PO (00:14)
[2020-12-16] MEDS ORDERED: D31000TA2 PO (00:14)
[2020-12-16] MEDS ORDERED: METO1TAB32 PO (00:14)
[2020-12-16] MEDS ORDERED: PROC1CRE5 EXT (00:14)
[2020-12-16] MEDS ORDERED: VITA500T40 PO (00:14)
[2020-12-16] MEDS ORDERED: PANT40TA29 PO (00:14)
[2020-12-16] MEDS ORDERED: VITMTA PO (00:14)
[2020-12-16] MEDS ORDERED: ACETAMINOPHEN TAB 650MG DOSE (2X325MG) PO PRN (00:40)
[2020-12-16] MEDS ORDERED: MOM 30ML SUSPENSION UDC PO PRN (00:40)
[2020-12-16] MEDS ORDERED: MAALOX 30 ML SUSP *UDC PO PRN (00:40)
[2020-12-16] MEDS ORDERED: ANUSOL HC CREAM 30GM EXT PRN (00:45)
[2020-12-16] MEDS ORDERED: ALBUTEROL 90 MCG/ACT 8GM HFA INHALER INH PRN (00:45)
[2020-12-16] MEDS ORDERED: SUMAtriptan SUCCINATE 25 MG TAB PO PRN (00:45)
[2020-12-16] MEDS ORDERED: PROCHLORPERAZINE 5 MG TAB (S0183) PO PRN (00:45)
[2020-12-16] MEDS ORDERED: DEXTROSE 50% 50 ML SYRINGE IV PRN (00:50)
[2020-12-16] MEDS ORDERED: GLUCOSE 4GM CHEW TABLET PO PRN (00:50)
[2020-12-16] MEDS ORDERED: GLUCAGON INJ 1MG VIAL SC PRN (00:50)
--- NOTE | 2020-12-16 00:50 | HPEPDOC ---
[facility] Medical History & Physical Date of Admission Dec 16, 2020 Date of Service: Dec 16, 2020 Attending Physician: NAVA ROMAN MD History and Physical CHIEF COMPLAINT: 75 y/o male with a cc of increased sob x4 days. HISTORY OF PRESENT ILLNESS: [This is a 75 y/o male with a pmh of COPD on 2L of O2 at home, stage 4 lung ca currently undergoing monthly maintenance therapy, DM2, porstate ca s/p prostatectomy, htn and hld who presents to the ED with a cc of increased sob x4 days. Patient states that he is usually able to get up and walk around his house without difficulty but the past four days has required help with this and becomes very winded with little exertion. Patient states that this is not his normal and decided to come to the ED for evaluation. Patient states that he is not aware of any changes in his routine that may have caused this exacerbation of his symptoms. Patient denies sick contacts, recent falls. Patient does admit to some mild post nasal drip. Patient also denies fever, chills, headaches, syncope, chest pain, n/v/d/c, abd pain, peripheral edema. ] PAST MEDICAL HISTORY: 1. [See HPI PAST SURGICAL HISTORY: 1. [Tonsillectomy with adenoidectomy]. 2. [Unspecified hernia repair]. 3. [Prostatectomy]. SOCIAL HISTORY: Tobacco use:[Denies] ETOH: [Denies] Illicit drug use: [Denies] FAMILY HISTORY: Reviewed - none pertinent ALLERGIES: Please see below. REVIEW OF SYSTEMS: CONSTITUTIONAL: [See HPI]. HEENT: [See HPI]. CARDIOVASCULAR: [See HPI]. RESPIRATORY: [See HPI]. GASTROINTESTINAL: [See HPI]. GENITOURINARY: [Denies dysuria]. SKIN: [Denies rash]. MUSCULOSKELETAL: [Denies acute joint/back pain]. NEUROLOGICAL: [Denies syncope, dysuria.]. ENDOCRINE: [Hx of DM]. HEMATOLOGIC/LYMPHATIC: [Denies easy bruising]. HOME MEDICATIONS: Please see below. PHYSICAL EXAMINATION: VITAL SIGNS: Please see below. GENERAL APPEARANCE: [This is a frail and chronically ill appearing 75 y/o male. He becomes sob easily with talking. He does not appear to be in respiratory distress at rest.]. HEENT: [Patient has obvious pallor. No mass or lesion. EOMI. No scleral icterus. Nares patent. Oral mucosa moist/]. CARDIOVASCULAR: [regular rate, rhythm. No murmurs, rubs, gallops]. LUNGS: [Decreased breath sounds throughout. Scattered wheezing]. ABDOMEN: [Soft, nontender]. MUSCULOSKELETAL: [No joint deformity noted]. EXTREMITIES: [No peripheral edema. No overlying skin changes. PUlses intact.]. NEUROLOGICAL: [Speech clear. A+Ox3. No focal deficits.]. PSYCHIATRIC: [Mood and affect appear appropriate.]. LABORATORY DATA: See below. IMAGING: [CXR: FINDINGS: The technique utilized in obtaining the radiograph has magnified the cardiac silhouette and accentuated the interstitial markings. Cardiomediastinal silhouette is unchanged. The MediPort device is seen the tip of which is in the superior vena cava. The right sided central venous catheter seen previously has been removed. There is diffuse interstitial fibrotic change status quo. No acute patchy parenchymal opacities or pleural effusions have developed. IMPRESSION: Chronic lung field changes and other findings as described above. CTA Chest: FINDINGS: Pulmonary arteries: There is opacification of the pulmonary arteries with no evidence of pulmonary embolus. There is no evidence of pneumothorax. Aorta: There is opacification of the aorta which appears intact. Lungs: There are changes of bullous emphysema and pulmonary fibrosis. Pleural spaces: A small right pleural effusion of the previous examination has resolved. Heart: Unremarkable. No cardiomegaly. No pericardial effusion. Lymph nodes: This further decrease in size of the low large right suprahilar mass since the previous exams. This now measures approximately 4.5 cm some central necrosis. The mediastinal and right hilar lymphadenopathy has further decreased as well. Diaphragm: There is continued elevation of the right hemidiaphragm. Bones/joints: Unremarkable. No acute fracture. Soft tissues: Unremarkable. IMPRESSION: 1. No evidence of pulmonary embolus. 2. The large right suprahilar mass lesion has further decreased in the lymphadenopathy is further decreased in size. 3. Severe changes of bullous emphysema and pulmonary fibrosis. ] MICROBIOLOGY: Please see below. ASSESSMENT: [This is a 75 y/o male with a pmh of COPD on 2L of O2 at home, stage 4 lung ca currently undergoing monthly maintenance therapy, DM2, porstate ca s/p prostatectomy, htn and hld who presents to the ED with a cc of increased sob x4 days. Workup in the ED was unrevealing except for hypercarbia]. . PLAN: 1. [Acute COPD exacerbation with hypercarbia i/s/o Stage 4 lung ca - Patient received 10mg of decadron from ems en route to the ED - Patient's sats in the ED ok on baseline 2L - high 90s - Will begin methylprednisolone iv q8 - duonebs, albuterol - continue at home inhalers - incentive spirometry - continuours pulse monitor - can begin zyrtec dialy for congestion, runny nose, pnd - admit to med surg for tx of acute exacerbation of respiratory disease 2. DM2 - sliding scale - hypoglycemic protocol 3. HTN - continue metoprolol 4. HLD - continue rosuvastatin 5. Migraines - continue topamax, sumatriptan 6. GERD - protonix 7. Depression - continue wellbutrin DVT prophylaxis - Lovenox]. Vital Signs Vital Signs Date Time Temp Pulse Resp B/P (MAP) Pulse Ox O2 Delivery O2 Flow Rate FiO2 12/16/20 00:00 92 18 128/76 (93) 98 Nasal Cannula 2.0 12/15/20 18:37 98.0 Laboratory Data Labs 24H Laboratory Tests 2 12/15/20 18:46: Immature Granulocyte % (Auto) 0.4, Neutrophils (%) (Auto) 87.3H, Lymphocytes (%) (Auto) 2.0L, Monocytes (%) (Auto) 9.8H, Eosinophils (%) (Auto) 0.2, Basophils (%) (Auto) 0.3, Neutrophils # (Auto) 8.5, Lymphocytes # (Auto) 0.2L, Monocytes # (Auto) 1.0H, Eosinophils # (Auto) 0.0, Basophils # (Auto) 0.0, Nucleated Red Blood Cells % (auto) 0.0, Anion Gap 0L, Glomerular Filtration Rate > 60.0, Calcium Level 8.8, Total Bilirubin 0.3, Direct Bilirubin 0.1, Aspartate Amino Transf (AST/SGOT) 15, Alanine Aminotransferase (ALT/SGPT) 14, Alkaline P hosphatase 68, Total Creatine Kinase 23L, Creatine Kinase MB < 1.0, Creatine Kinase MB Relative Index 4.35H, Troponin I < 0.02, Total Protein 7.0, Albumin 2.5L, Albumin/Globulin Ratio 0.6 12/15/20 21:21: Blood Gas Bicarbonate Standard 32.9H, Arterial Blood pH 7.360, Arterial Blood Partial Pressure CO2 66.2*H, Arterial Blood Partial Pressure O2 131.4H, Arterial Blood Total CO2 38.6H, Arterial Blood HCO3 36.6H, Arterial Blood Base Excess 9.1H, Arterial Blood Oxygen Saturation 98.5 CBC/BMP Laboratory Tests 12/15/20 18:46 Microbiology Microbiology 12/15/20 Respiratory Virus Panel (PCR) ([facility]) - Final, Complete Home Medications Scheduled Alogliptin Benzoate (Nesina) 12.5 Mg Tablet, 12.5 MG PO QHS Aspirin (Aspirin EC) 81 Mg Tablet.dr, 81 MG PO DAILY Bupropion HCl (Bupropion HCl Sr) 150 Mg Tab.sr.12h, 150 MG PO BID Cetirizine HCl (Cetirizine HCl) 10 Mg Tablet, 10 MG PO DAILY Cholecalciferol (Vitamin D3) (Vitamin D3) 1,000 Unit Tablet, 1,000 UNITS PO QHS Cyanocobalamin (Vitamin B-12) (Vitamin B-12) 500 Mcg Tablet, 500 MCG PO Q2D EVERY OTHER DAY AT QHS Empagliflozin (Jardiance) 25 Mg Tablet, 12.5 MG PO DAILY Ferrous Gluconate (Ferrous Gluconate) 324 Mg Tablet, 324 MG PO DAILY Metformin HCl (Metformin HCl) 1,000 Mg Tablet, 1,000 MG PO BID Metoprolol Succinate (Metoprolol Succinate) 25 Mg Tab.er.24h, 12.5 MG PO QHS Multivitamins (Thera M Plus Tablet) 1 Each Tablet, 1 TAB PO BID Pantoprazole Sodium (Pantoprazole Sodium) 40 Mg Tablet.dr, 40 MG PO DAILY Pioglitazone HCl (Pioglitazone HCl) 45 Mg Tablet, 45 MG PO QHS Prednisone (Prednisone) 50 Mg Tablet, 50 MG PO DAILY Complete prednisone burst Rosuvastatin Calcium (Rosuvastatin Calcium) 40 Mg Tablet, 40 MG PO QHS Sennosides (Eileen-Mario) 8.6 Mg Tablet, 8.6 MG PO BID Topiramate (Topiramate) 200 Mg Tablet, 100 MG PO BID Scheduled PRN Albuterol Sulfate (Albuterol Sulfate Hfa) 8.5 Gm Hfa.aer.ad, 2 PUFFS INH Q4H PRN for SHORTNESS OF BREATH Hydrocortisone (Proctozone-Hc) 30 Gm Crm.pe.claudia, 1 DOSE EXT BID PRN for R MIKE/ITCHING APPLIES TO TAILBONE NEEDED Prochlorperazine Maleate (Prochlorperazine Maleate) 10 Mg Tablet, 10 MG PO Q6H PRN for NAUSEA OR VOMITING Sildenafil Citrate (Sildenafil Citrate) 100 Mg Tablet, 50 MG PO DAILY PRN for ERECTILE DYSFUNCTION Sumatriptan Succinate (Sumatriptan Succinate) 100 Mg Tablet, 100 MG PO BID PRN for MIGRAINE Allergies Coded Allergies: No Known Allergies (Unverified , 01/12/19) A-FIB/CHADSVASC A-FIB History Current/History of A-Fib/PAF?: No Attending Note Attending Note time of service 1250am Mr. Ordoñez is a 75 yr old w DM, emphysema, pulmonary fibrosis, chronic O2 dep respiratory failure, advanced lung cancer with pulmonary cachexia. His PE was remarkable for slim build, dyspnea, use of accessory muscles & difficulties speaking full sentences w/o stopping Admitting diagnosis: acute hypercapneic respiratory failure 2/2 acute COPD. pulmonary cachexia Rest per ANNE MARIE Ambriz&KENNEDY LEMUS Dec 16, 2020 00:50 NAVA ROMAN MD Dec 16, 2020 08:49
[2020-12-16] MEDS: HumaLOG INSULIN (NovoLOG) PER UNIT SC SCH ×5 (01:11→21:19)
[2020-12-16] MEDS: DOCUSATE SODIUM 100MG CAPSULE PO SCH ×3 (01:21→21:18)
[2020-12-16] MEDS: METOPROLOL SUCC *XL* 25MG TAB (TopROL *XL*) PO SCH ×2 (01:22→21:19)
[2020-12-16] MEDS: MULTIVITAMINS/MINERALS THERAP 1 TAB PO SCH ×3 (01:23→21:18)
[2020-12-16] MEDS: SENNA 8.6 MG TAB (SENOKOT) PO SCH ×3 (01:23→21:18)
[2020-12-16] MEDS: ROSUVASTATIN 10 MG TAB (CRESTOR) PO SCH ×2 (01:23→21:18)
[2020-12-16] MEDS: TOPIRAMATE (TopAMAX) 100 MG TAB PO SCH ×3 (01:24→21:18)
[2020-12-16 02:55] VITALS: BP 130/81
[2020-12-16] MEDS: methylPREDNISolone 125MG 2ML VIAL IV SCH ×2 (04:39→10:50)
[2020-12-16 07:00] LABS: THYROID STIMULATING HORMONE 0.343 uIU/ML (0.358-3.740)
[2020-12-16] MEDS: CETIRIZINE (ZyrTEC) 10 MG TAB PO SCH (08:39)
[2020-12-16] MEDS: ASPIRIN 81MG ENTERIC TABLET PO SCH (08:39)
[2020-12-16] MEDS: PANTOPRAZOLE 40MG TAB (PROTONIX) PO SCH (08:39)
[2020-12-16] MEDS: FERROUS GLUCONATE 324 MG TAB PO SCH (08:39)
[2020-12-16] MEDS: ENOXAPARIN 40MG/0.4ML SYRINGE (J1650 PER 10MG) SC SCH (08:39)
[2020-12-16] MEDS: MAGNESIUM OXIDE 400MG TAB (MAG-OX) PO SCH (08:39)
[2020-12-16] MEDS: buPROPion **SR TABLET** (ZYBAN) 150MG PO SCH ×2 (08:39→21:18)
[2020-12-16 14:00] VITALS: BP 111/75
--- NOTE | 2020-12-16 16:51 | IPNPDOC ---
Text Note Date of Service The patient was seen on 12/16/20. NOTE SUBJECTIVE: Patient is in good spirits this morning, feeling better but has not yet ambulated. Reports that at home he was feeling dyspneic even at rest. Denies chest pain PHYSICAL EXAMINATION: VITAL SIGNS: see below GENERAL APPEARANCE: Awake, alert, oriented x 3. NAD HEENT: Atraumatic, normocephalic. Eyes are anicteric. Mucous membranes are pink and moist CARDIOVASCULAR: NSR, regular rhythm, no noted murmurs LUNGS: Decreased breath sounds with increased end expiratory phase, faint expiratory wheezing throughout. ABDOMEN: Normoactive sounds, soft, nondistended. No rebound tenderness or guarding. EXTREMITIES: No lower extremity edema, no apparent rashes/petechiae. NEUROLOGICAL: Awake, speech is clear, AOx3 LABORATORY DATA: As per below IMAGING: No recent studies. ASSESSMENT: This is a 75 y/o male with a PMHx of COPD on 2L of O2 at home, stage 4 lung ca currently undergoing monthly maintenance therapy, DM2, prostate ca s/p prostatectomy, HTN and HLD who presents to the ED with a cc of increased sob x4 days with labs indicating hypercarbia c/w chronic respiratory failure. PLAN: # COPD with acute exacerbation: Patient has acute hypercarbia in the setting of COPD and stage 4 lung cancer. Will transition to PO steroids and continue respiratory therapy with albuterol and duonebs. - Albuterol neb q1h PRN - Duoneb Q4H PRN - IS - Prednisone 50mg for 5 days to start 12/17 - Continue Zyrtec daily - O2 PRN sats <89% # DM2: Stable with ISS in the setting of steroid use. - ISS # HTN: BMP WNL on home Metoprolol # HLD: Continue home Rosuvastatin # Migraines: Provide with Topamax and Sumatriptan as needed # GERD: - Provide with Protonix # Depression: Continue Wellbutrin Encourage good day-night cycling Dispo: Likely d/c to home with care services in 24 hours Code: Full Code, will engage goals of care discussion Diet: Regular diet DVT Prophy: Lovenox Consults: PT/OT, PFS VS,Fishbone, I+O VS, Fishbone, I+O Laboratory Tests 12/15/20 18:46 Vital Signs Date Time Temp Pulse Resp B/P (MAP) Pulse Ox O2 Delivery O2 Flow Rate FiO2 12/16/20 14:00 98.2 104 18 111/75 (87) 98 Nasal Cannula 1.0 I&O- Last 24 Hours up to 6 AM 12/16/20 06:00 Intake Total 300 ml Balance 300 ml FAY FLEMING MD [facility] Dec 16, 2020 16:51
--- NOTE | 2020-12-16 20:51 | ECGEPIP ---
[facility] - ED Test Date: 2020-12-15 Pat Name: JUAN REYES Department: Room: [place] [address] Gender: Male Pet Feeder: HC : [id number] Requested By: SALTY Noonan Order Number: [id number] Reading MD: Stacy Wan Measurements Intervals [place] Rate: 90 P: 31 ND: 150 QRS: -34 QRSD: 158 T: 9 QT: 414 QTc: 506 Interpretive Statements Normal sinus rhythm Left axis deviation Right bundle branch block [id number] abnormalities compared 11/06/20 Electronically Signed on 12-16-2020 20:51:15 EDT by Stacy Wan
[2020-12-16 22:00] VITALS: BP 112/74
[2020-12-17 06:00] VITALS: BP 117/72
[2020-12-17 06:39] LABS: HEMATOCRIT 33.8 % (42.0-52.0); HEMOGLOBIN 10.1 g/dl (13.5-17.5); MEAN CORPUSCULAR HEMOGLOBIN 29.9 pg (27.0-33.0); MEAN CORPUSCULAR HGB CONC 29.9 g/dl (32.0-36.5); PLATELET COUNT, AUTOMATED 336 10^3/uL (150-450); RED BLOOD COUNT 3.38 10^6/uL (4.30-6.10); WHITE BLOOD COUNT 13.7 10^3/uL (4.0-10.0)
[2020-12-17 07:03] LABS: BLOOD UREA NITROGEN 23 MG/DL (7-18); CALCIUM LEVEL 9.7 MG/DL (8.8-10.2); CARBON DIOXIDE LEVEL 39 MEQ/L (21-32); CHLORIDE LEVEL 102 MEQ/L (98-107); CREATININE FOR GFR 0.78 MG/DL (0.70-1.30); GLOMERULAR FILTRATION RATE > 60.0 (>42); GLUCOSE, FASTING 75 MG/DL (70-100); MAGNESIUM LEVEL 2.5 MG/DL (1.8-2.4); POTASSIUM SERUM 3.7 MEQ/L (3.5-5.1); SODIUM LEVEL 141 MEQ/L (136-145)
[2020-12-17] MEDS: HumaLOG INSULIN (NovoLOG) PER UNIT SC SCH ×4 (07:30→20:41)
[2020-12-17] MEDS: ENOXAPARIN 40MG/0.4ML SYRINGE (J1650 PER 10MG) SC SCH (08:42)
[2020-12-17] MEDS: PANTOPRAZOLE 40MG TAB (PROTONIX) PO SCH (08:43)
[2020-12-17] MEDS: TOPIRAMATE (TopAMAX) 100 MG TAB PO SCH ×2 (08:43→21:25)
[2020-12-17] MEDS: MULTIVITAMINS/MINERALS THERAP 1 TAB PO SCH ×2 (08:43→20:43)
[2020-12-17] MEDS: buPROPion **SR TABLET** (ZYBAN) 150MG PO SCH ×2 (08:43→20:45)
[2020-12-17] MEDS: ASPIRIN 81MG ENTERIC TABLET PO SCH (08:43)
[2020-12-17] MEDS: SENNA 8.6 MG TAB (SENOKOT) PO SCH ×2 (08:43→20:45)
[2020-12-17] MEDS: CETIRIZINE (ZyrTEC) 10 MG TAB PO SCH (08:43)
[2020-12-17] MEDS: FERROUS GLUCONATE 324 MG TAB PO SCH (08:43)
[2020-12-17] MEDS: DOCUSATE SODIUM 100MG CAPSULE PO SCH ×2 (08:43→20:45)
[2020-12-17] MEDS ORDERED: predniSONE 50 MG TAB PO SCH (09:00)
[2020-12-17] MEDS ORDERED: POTASSIUM CHLORIDE 10 MEQ SR TABLET PO ONE (09:00)
[2020-12-17] MEDS: MAGNESIUM OXIDE 400MG TAB (MAG-OX) PO SCH (09:00)
[2020-12-17] MEDS ORDERED: PRED50TA PO (10:55)
[2020-12-17] MEDS ORDERED: CETI10TA PO (10:55)
[2020-12-17 14:00] VITALS: BP 112/74
[2020-12-17 17:48] LABS: ABG HCO3 31.1 MEQ/L (22.0-26.0); ABG O2 SATURATION 83.9 % (95.0-99.0); ABG PARTIAL PRESSURE O2 67.6 mmHg (75.0-100.0); ABG STANDARD HCO3 20.9 MEQ/L (22.0-26.0); ABG TOTAL CO2 35.5 MEQ/L (23.0-31.0)
[2020-12-17 17:49] LABS: ABG PARTIAL PRESSURE CO2 144.6 mmHg (35.0-45.0)
[2020-12-17 18:00] VITALS: BP 122/73
[2020-12-17 18:04] VITALS: BP 99/58
--- NOTE | 2020-12-17 18:05 | REP ---
INDICATION: rat. COMPARISON: Multiple the latest 12/15/2020 TECHNIQUE: Portable FINDINGS: The technique utilized in obtaining the radiograph has magnified the cardiac silhouette and accentuated the interstitial markings. The cardiomediastinal silhouette is unchanged. There is cardiomegaly accentuated by technique. The tip of the MediPort device remains in the superior vena cava. Chronic interstitial lung changes are again noted status quo. No acute patchy parenchymal opacities or pleural effusions have developed. There is chronic elevation of the diaphragm surface of the right lung. There is no change in the imaged osseous structures. IMPRESSION: Stable appearing chronic changes as described above. <Electronically signed by Modesto Hart > 12/17/20 [id number]
[2020-12-17 18:11] LABS: ABG BASE EXCESS 0.9 (-2.0-2.0); ABG HCO3 31.1 MEQ/L (22.0-26.0); ABG O2 SATURATION 96.4 % (95.0-99.0); ABG PARTIAL PRESSURE O2 97.1 mmHg (75.0-100.0); ABG STANDARD HCO3 25.2 MEQ/L (22.0-26.0); ABG TOTAL CO2 33.8 MEQ/L (23.0-31.0)
[2020-12-17 18:12] LABS: ABG PARTIAL PRESSURE CO2 86.1 mmHg (35.0-45.0); ABG pH (ARTERIAL) 7.176 UNITS (7.350-7.450)
[2020-12-17 18:13] LABS: BASO % 0.1 % (0.0-1.0); HEMOGLOBIN 10.5 g/dl (13.5-17.5); LYMPH # 0.4 10^3/uL (1.5-5.0); LYMPH % 2.7 % (24.0-44.0); MEAN CORPUSCULAR HEMOGLOBIN 30.2 pg (27.0-33.0); MEAN CORPUSCULAR HGB CONC 28.4 g/dl (32.0-36.5); MEAN CORPUSCULAR VOLUME 106.3 fl (80.0-96.0); MONO # 0.5 10^3/uL (0.0-0.8); MONO % 3.2 % (2.0-8.0); NEUTROPHILS # 14.4 10^3/uL (1.5-8.5); PLATELET COUNT, AUTOMATED 391 10^3/uL (150-450); RED BLOOD COUNT 3.48 10^6/uL (4.30-6.10); WHITE BLOOD COUNT 15.4 10^3/uL (4.0-10.0)
[2020-12-17 18:43] LABS: ALBUMIN 2.6 GM/DL (3.2-5.2); ALT/SGPT 18 U/L (12-78); BILIRUBIN,TOTAL 0.1 MG/DL (0.2-1.0); BLOOD UREA NITROGEN 24 MG/DL (7-18); CALCIUM LEVEL 9.7 MG/DL (8.8-10.2); CARBON DIOXIDE LEVEL 34 MEQ/L (21-32); CHLORIDE LEVEL 104 MEQ/L (98-107); CREATININE FOR GFR 1.01 MG/DL (0.70-1.30); GLOMERULAR FILTRATION RATE > 60.0 (>42); GLUCOSE, FASTING 239 MG/DL (70-100); POTASSIUM SERUM 4.5 MEQ/L (3.5-5.1); SODIUM LEVEL 141 MEQ/L (136-145); TROPONIN I < 0.02 NG/ML (< 0.10)
--- NOTE | 2020-12-17 19:32 | IPNPDOC ---
Text Note Date of Service The patient was seen on 12/17/20. NOTE Significant event following discharge: Patient was discharged and was on floor preparing to pick patient up when patient experienced an aspiration event while eating barajas pie. Patient choked on barajas pie and became unresponsive, code was called overhead and suction re moved 1 inch piece of pie crust from trachea. Patient remained unresponsive with poor respiratory effort, ronchorous breath sounds bilaterally, and desaturated to 40s while aspiration and blow by was happening. Gentle bagging was initiated with no resistance and patient's oxygen saturations increased to 90s. He was transferred to ICU for intubation and intensive monitoring. Upon arriving to the ICU room he demonstrated purposeful movements and began to speak and maintain his oxygen saturations. was brought to patient bedside and the decision was made to discontinue discharge and transfer to ICU for overnight monitoring. laboratory studies are returning. PHYSICAL EXAMINATION: VITAL SIGNS: see below GENERAL APPEARANCE: Awake, alert, oriented x 3. NAD HEENT: Atraumatic, normocephalic. Eyes are anicteric. Mucous membranes are pink and moist CARDIOVASCULAR: NSR, regular rhythm, no noted murmurs LUNGS: Decreased breath sounds with increased end expiratory phase, rhonchi have improved and are no longer present ABDOMEN: Normoactive sounds, soft, nondistended. No rebound tenderness or guarding. EXTREMITIES: No lower extremity edema, no apparent rashes/petechiae. NEUROLOGICAL: Awake, speech is clear, AOx3 LABORATORY DATA: As per below IMAGING: CXR: IMPRESSION: Stable appearing chronic changes as described above. ASSESSMENT: This is a 75 y/o male with a PMHx of COPD on 2L of O2 at home, stage 4 lung ca currently undergoing monthly maintenance therapy, DM2, prostate ca s/p prostatectomy, HTN and HLD who presents to the ED with a cc of increased sob x4 days with labs indicating hypercarbia c/w chronic respiratory failure. He was pending discharge when he aspirated on pie. He had acute respiratory failure but recovered following suction of foreign body and bagging. PLAN: # Aspiration event: Will make patient NPO overnight and perform formal swallow evaluation in the morning. CXR showed no foreign body therefore no indication for pulmonology consult for bronchoscopy at this time. - NPO - FSBG QHS - Hold IVF at this time - Swallow eval in the morning - Spoke with ICU attending regarding patient # COPD with acute exacerbation: Patient has acute hypercarbia in the setting of COPD and stage 4 lung cancer. Patient was pending discharge while on home medications. Will continue this plan while he remains overnight for additional monitoring. - Albuterol neb q1h PRN - Duoneb Q4H PRN - IS - Prednisone 50mg for 5 days to start 12/17 - Continue Zyrtec daily - O2 PRN sats <89% # DM2: Stable with ISS in the setting of steroid use. - ISS # HTN: BMP WNL on home Metoprolol # HLD: Continue home Rosuvastatin # Migraines: Provide with Topamax and Sumatriptan as needed # GERD: - Provide with Protonix # Depression: Continue Wellbutrin Encourage good day-night cycling Dispo: Overnight monitoring in ICU, anticipate discharge tomorrow morning Code: Full Code, will engage goals of care discussion Diet: NPO DVT Prophy: Lovenox Consults: PULPER TENDER VS,Javier, I+O VS, Javier I+O Laboratory Tests 12/17/20 06:03 12/17/20 17:59 Vital Signs Date Time Temp Pulse Resp B/P (MAP) Pulse Ox O2 Delivery O2 Flow Rate FiO2 12/17/20 18:04 12/17/20 18:00 25.0 12/17/20 18:00 98.3 27 Non-Rebreather I&O- Last 24 Hours up to 6 AM 12/17/20 06:00 Intake Total 1080 ml Output Total 1100 ml Balance -20 ml FAY FLEMING MD [facility] Dec 17, 2020 19:32
[2020-12-17 20:00] VITALS: BP 110/70
[2020-12-17] MEDS: SODIUM CHLORIDE HYPERTONIC 3% 15ML NEB SOL INH SCH (20:00)
[2020-12-17] MEDS: methylPREDNISolone 40MG 1ML VIAL IV SCH (20:42)
[2020-12-17] MEDS: PIPERACILLIN/TAZOBACTAM SOD 3.375 GM in D5W MINI-BAG PLUS 50 ML IV SCH (20:42)
[2020-12-17] MEDS: NS 0.45% 1,000 ML IV SCH (20:43)
[2020-12-17] MEDS: METOPROLOL SUCC *XL* 25MG TAB (TopROL *XL*) PO SCH (20:44)
[2020-12-17] MEDS: ROSUVASTATIN 10 MG TAB (CRESTOR) PO SCH (20:45)
--- NOTE | 2020-12-17 21:18 | CR ---
CRITICAL CARE CONSULTATION DATE: 12/17/2020 CHIEF COMPLAINT: Hypoxia. HISTORY OF PRESENT ILLNESS: Mr. Ordoñez is a 75-year-old male with a past medical history of COPD with pulmonary fibrosis and chronic hypoxemic respiratory failure on 2 liters nasal cannula oxygen, history of squamous cell carcinoma reportedly stage 4; status post chemo/RT on maintenance therapy, diabetes, MIRZA; noncompliant with CPAP, who presented to the hospital with complaints of worsening shortness of breath with exertion for several days as well as some increasing cough and mucous production. Patient reports since he was diagnosed with his lung cancer earlier this year in July and since completing his chemotherapy and radiation several weeks ago that he has had issues with very thick stringy mucous and cough. He states it is difficult for him to expectorate his mucous. He had previously only been seen for sleep apnea in our office, however, has not been seen for some time since he had returned his CPAP and refused to use it any further. Patient otherwise has been following up with oncology and hematology at an outside facility for his cancer treatment. He does have nebulized Albuterol that he uses at home as needed. Patient had denied any chest pain, had not had any fevers or chills. He had initially presented for admission to the ED on the . He was treated for an acute COPD exacerbation with steroids and was planned for discharge today to home. Patient had actually been discharged and his was picking him up from the hospital when he was eating his dinner. Patient was eating [place]ajas pie when he chocked on a piece of the pie and had a rapid response called. He was hypoxic. They had performed Heimlich maneuver initially and he was able to cough up the piece of pie. He, however, continued to be somewhat obtunded and lethargic. He was transferred to the ICU for further evaluation. In the ICU, patient was becoming more arousable and is now in fact alert and oriented x3. Patient does appear tachypneic and is using some accessory muscles for respiration, but is able to speak in short sentences. He does report continued cough and mucous that is difficult for him to expectorate. Upon further questioning, he has had issues previously with dysphagia and with aspiration of food, particularly since he was diagnosed and treated for his lung cancer earlier this year. He has been seen by speech pathology in the past, most noticeably during his last hospitalization in November for pneumonia and COPD exacerbation. During his hospitalization in November, patient was also briefly hypotensive and on pressors at that time. PAST MEDICAL AND SURGICAL HISTORY: 1. 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 2. Diabetes. 3. COPD with pulmonary fibrosis and chronic hypoxic respiratory failure on 2 liters nasal cannula oxygen supplementation. 4. Depression. 5. Prior history of prostate cancer. 6. MIRZA; noncompliant with CPAP. 7. Hypertension. 8. Hyperlipidemia. 9. Migraine headache. 10.Status post tonsillectomy. 11.Status post partial amputation of toe. 12.Status post prostatectomy. 13.Anxiety. 14.History of iron deficiency anemia. SOCIAL HISTORY: Patient is a former smoker; he was one pack a day for 20 years and quit in 2007. He has previous exposure to Agent [place] in [place]. Patient is retired. 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 as well. FAMILY HISTORY: Mother with history of dementia. Father with history of heart condition as well as diabetes and hypertension. Brother with history of bladder cancer. HOME MEDICATIONS: 1. Alogliptin. 2. Aspirin. 3. Bupropion. 4. Vitamin D. 5. Jardiance. 6. Ferrous gluconate. 7. Magnesium oxide. 8. Metformin. 9. Metoprolol. 10.Multivitamin. 11.Pantoprazole. 12.Pioglitazone. 13.Rosuvastatin. 14.Senna. 15.Topiramate. 16.Albuterol p.r.n. 17.Sildenafil p.r.n. 18.Sumatriptan p.r.n. 19.Prochlorperazine. ALLERGIES: No known drug allergies. PHYSICAL EXAMINATION: VITALS: Temperature 98.3, pulse 122, respirations 27, blood pressure 122/73, O2 sat 97% on non-rebreather. GENERAL: Patient is awake, alert and oriented x3. He appears to be in some mild respiratory distress and is speaking in short sentences. He does have some mild accessory respiratory muscle use. HEENT: Normocephalic, atraumatic. There is temporal wasting noted. Patient is cachectic. Moist mucous membranes noted. Mallampati is 1. There is some thick mucous noted in the posterior oropharynx. Neck is supple. Trachea is midline. There is no palpable cervical adenopathy. CARDIAC: Tachycardic, regular rate and rhythm. Normal S1, S2. Unable to clearly appreciate any murmurs. PULMONARY: There are inspiratory squeaks and coarse rhonchi noted with a few crackles at the bases of the lung on the left and diminished breath sounds on the right side. ABDOMEN: Soft, nontender, non-distended. No palpable masses. EXTREMITIES: There is no lower extremity noted bilaterally. LABORATORY DATA: WBC 15.4, hemoglobin 10.5, platelets 391,000. Chemistries: Sodium 141, potassium 4.5, chloride 104, bicarb 34, BUN 24, creatinine 1.01, glucose 239, calcium 9.7. Total bilirubin 0.1. AST/ALT 20 and 18, alkaline phosphatase 82. Troponin is negative. Albumin 2.6. ABG during rapid response was pH 6.950, pCO2 of 144.6, pO2 of 67.6. Repeat ABG done approximately 20 minutes later: pH 7.176, pCO2 of 86.1, pO2 of 97.1 IMAGING: CTA on admission showed no evidence of PE. There are diffuse emphysematous and pulmonary fibrotic changes with honeycombing more in the periphery. There is no clear basilar predominance. There is a right perihilar mass, which is improved compared to the previous CT in size, but is still measuring approximately 4.5 cm with some central necrosis. There is improvement in the mediastinal and right hilar adenopathy as well. There are some areas of coarsened interstitial markings and opacities mostly in the left base. There is some bronchiectasis throughout. There is chronic right hemidiaphragm elevation. Chest x-ray done post rapid response showed chronic right hemidiaphragm elevation. There appears to be some increased atelectasis of the right base, but no clear new opacities. There are chronic interstitial fibrotic changes noted again; unchanged. There is a Mediport in place. There is some increased air in the stomach and bowel. ASSESSMENT AND PLAN: Mr. Ordoñez is a 75-year-old male with a past medical history of hypertension, hyperlipidemia, diabetes, COPD with pulmonary fibrosis and chronic hypoxemic and hypercarbic respiratory failure on 2 liters nasal cannula oxygen chronically, history of squamous cell carcinoma reportedly stage 4; status post chemo/RT, who was admitted initially with complaints of increasing shortness of breath and cough and mucous. Patient was admitted for an acute COPD exacerbation and was actually planned to be discharged today. He was awaiting pickup from his when he was finishing his dinner and had an event where he choked and aspirated on some pie. Reportedly during the rapid response, the patient was able to cough and expectorate the piece of pie/ Initially patient was obtunded and minimally responsive. He was also hypoxic. With bag mask ventilation, his O2 sats improved and patient's mental status also improved. His repeat ABG showed acute on chronic hypercarbic respiratory failure, but improved from 20 minutes prior during his rapid response. 1) Acute on chronic hypoxemic and hypercarbic respiratory failure in the setting of an acute aspiration event: Patient has chronic hypercarbia likely in the setting of his COPD and pulmonary fibrosis, which is most likely secondary to his previous work related exposures and nicotine use. -Patient's repeat ABG does show improvement in his chronic hypercarbia, however, he is still acutely hypercarbic and hypoxic. Patient does have a history of sleep apnea and has been noncompliant with his CPAP. Will place patient on bi-level ventilation for his acute hypercarbia, although would give very brief episodes on BIPAP for short period of time as he does have issues with mucous clearance and suspect with improved broncho-dilation and mucous clearance that his hypercarbia will also improve as well. -Will start patient on hypertonic saline nebulized with Albuterol as well as with percussion vest and Acapella for mucous clearance. -Will start patient on BiPAP at settings of 15/8 with respiratory rate of 12, and titrate FIO2 to maintain O2 sat of 88 to 92%, but will place patient on very short periods of BiPAP with breaks in between for coughing and mucous clearance. Patient does state that he was unable to tolerate CPAP previously at home because of the mask sensation. We did discuss that if he does not improve with noninvasive ventilation, then he would require intubation and mechanical ventilation, which he is agreeable to. -Will continue to trend ABGs. - would keep patient n.p.o. pending his speech and swallow evaluation. -Given his increasing leukocytosis and aspiration event, will start him on antibiotics for presumed aspiration pneumonia with Zosyn. 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 -Will start patient on Solu-Medrol 40 mg I.V. every 12 hours. -Patient will be started on I.V. fluid hydration given mild increase in his BUN and creatinine. -Did discuss with the patient and his family at the bedside about his goals of care. He was a full code on this admission and after questioning, he continues to be a full code. He did question, however, whether or not he would want to be on prolonged mechanical ventilation, but at this time, he would still like to continue with full resuscitative measures. DVT prophylaxis: Lovenox. Code Status: Full code. TOTAL CRITICAL CARE TIME SPENT NOT INCLUDING PROCEDURES: Approximately 1 hour and 30 minutes. JOE
[2020-12-18] VITALS (16 sets, daily range): BP systolic 96–144; BP diastolic 64–82; O2SAT 92–96
[2020-12-18] MEDS: SODIUM CHLORIDE HYPERTONIC 3% 15ML NEB SOL INH SCH ×4 (01:25→20:28)
[2020-12-18] MEDS: IPRATROPIUM 0.5MG/ALBUTEROL 2.5MG INH SOL UD 3ML (DUONEB) NEB PRN ×2 (01:26→20:28)
[2020-12-18] MEDS: PIPERACILLIN/TAZOBACTAM SOD 3.375 GM in D5W MINI-BAG PLUS 50 ML IV SCH ×4 (05:00→23:35)
[2020-12-18] MEDS: HumaLOG INSULIN (NovoLOG) PER UNIT SC SCH ×5 (05:01→23:34)
--- NOTE | 2020-12-18 05:25 | ECGEPIP ---
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
[2020-12-18 05:47] LABS: ABG BASE EXCESS 5.5 (-2.0-2.0); ABG HCO3 34.2 MEQ/L (22.0-26.0); ABG O2 SATURATION 93.6 % (95.0-99.0); ABG PARTIAL PRESSURE O2 69.5 mmHg (75.0-100.0); ABG STANDARD HCO3 29.3 MEQ/L (22.0-26.0); ABG TOTAL CO2 36.5 MEQ/L (23.0-31.0); ABG pH (ARTERIAL) 7.282 UNITS (7.350-7.450)
[2020-12-18 05:51] LABS: ABG PARTIAL PRESSURE CO2 74.1 mmHg (35.0-45.0)
[2020-12-18] MEDS: methylPREDNISolone 40MG 1ML VIAL IV SCH ×2 (08:15→19:51)
[2020-12-18] MEDS: NS 0.45% 1,000 ML IV SCH (08:16)
[2020-12-18 08:54] LABS: HEMATOCRIT 36.1 % (42.0-52.0); HEMOGLOBIN 10.5 g/dl (13.5-17.5); MEAN CORPUSCULAR HEMOGLOBIN 30.3 pg (27.0-33.0); MEAN CORPUSCULAR HGB CONC 29.1 g/dl (32.0-36.5); MEAN CORPUSCULAR VOLUME 104.3 fl (80.0-96.0); PLATELET COUNT, AUTOMATED 322 10^3/uL (150-450); RED BLOOD COUNT 3.46 10^6/uL (4.30-6.10); WHITE BLOOD COUNT 10.5 10^3/uL (4.0-10.0)
[2020-12-18] MEDS: MULTIVITAMINS/MINERALS THERAP 1 TAB PO SCH (09:00)
[2020-12-18] MEDS: ASPIRIN 81MG ENTERIC TABLET PO SCH (09:00)
[2020-12-18] MEDS: FERROUS GLUCONATE 324 MG TAB PO SCH (09:00)
[2020-12-18] MEDS: CETIRIZINE (ZyrTEC) 10 MG TAB PO SCH (09:00)
[2020-12-18] MEDS: TOPIRAMATE (TopAMAX) 100 MG TAB PO SCH (09:00)
[2020-12-18] MEDS: SENNA 8.6 MG TAB (SENOKOT) PO SCH (09:00)
[2020-12-18] MEDS: DOCUSATE SODIUM 100MG CAPSULE PO SCH (09:00)
[2020-12-18] MEDS: buPROPion **SR TABLET** (ZYBAN) 150MG PO SCH (09:00)
[2020-12-18] MEDS: PANTOPRAZOLE 40MG TAB (PROTONIX) PO SCH (09:00)
[2020-12-18] MEDS: MAGNESIUM OXIDE 400MG TAB (MAG-OX) PO SCH (09:00)
[2020-12-18] MEDS ORDERED: BISACODYL 10 MG SUPP PR PRN (09:05)
[2020-12-18 09:15] LABS: BLOOD UREA NITROGEN 21 MG/DL (7-18); CALCIUM LEVEL 9.5 MG/DL (8.8-10.2); CARBON DIOXIDE LEVEL 34 MEQ/L (21-32); CHLORIDE LEVEL 104 MEQ/L (98-107); CREATININE FOR GFR 0.85 MG/DL (0.70-1.30); GLOMERULAR FILTRATION RATE > 60.0 (>42); GLUCOSE, FASTING 145 MG/DL (70-100); POTASSIUM SERUM 3.7 MEQ/L (3.5-5.1); SODIUM LEVEL 141 MEQ/L (136-145)
[2020-12-18 09:26] LABS: LYMPHOCYTES 9 % (16-44); MONOCYTES 2 % (0-5); NEUTROPHILS 80 % (28-66)
[2020-12-18 09:27] LABS: PLATELET ESTIMATE NORMAL (NORMAL)
[2020-12-18] MEDS: ENOXAPARIN 40MG/0.4ML SYRINGE (J1650 PER 10MG) SC SCH (10:02)
--- NOTE | 2020-12-18 10:41 | CCN ---
CRITICAL CARE NOTE DATE: 12/18/2020 SUBJECTIVE: Patient was seen and examined this morning during bedside rounds. Yesterday evening and overnight, patient did respond well with mucous clearance techniques. He was able to cough up fairly copious amounts of mucous with the nebulized hypertonic saline, Albuterol and percussion vest. He was not placed on BiPAP overnight as there was issue with getting a facemask that would fit him properly. He was able to be titrated down on his nasal cannula oxygen supplementation to his usual home 2 liters a minute and he remained awake, alert and oriented throughout the night with no change in his mental status. Patient denies any fevers or chest pain this morning. He has not had any hemoptysis. He does continue to have significant cough with mucous and does continue to feel that he has mucous congestion in his chest. He does report shortness of breath and dyspnea with minimal exertion, which is unchanged. He has also been n.p.o. since yesterday and is complaining of some hunger now. He does have a history as well of constipation chronically and his last bowel movement was about 3 or 4 days ago. He denies any current abdominal pain. No nausea or vomiting. PHYSICAL EXAMINATION: VITALS: Temperature 97.7, pulse 116, respirations 28, blood pressure 124/75, O2 sat 93% on 2 liters nasal cannula. INTAKE/OUTPUT: In 1.0 liters. Out 775 mL. GENERAL: Patient is a thin male, cachectic. He is awake, alert and oriented x3. He does have some tachypnea and is able to speak only in short sentences with some mild accessory respiratory muscle use. HEENT: Normocephalic, atraumatic. He has temporal wasting noted. Moist mucous membranes noted. Mallampati is class 1. Neck is supple. Trachea is midline. CARDIAC: Tachycardic, regular rate and rhythm. Normal S1, S2. Unable to clearly appreciate any murmurs. PULMONARY: The patient has crackles noted bilaterally as well as a few rhonchi more on the left side. He has diminished breath sounds on the right base. ABDOMEN: Scaphoid, soft, nontender, non-distended. No palpable masses. EXTREMITIES: There is no lower extremity noted bilaterally. LABORATORY DATA: WBC 10.5, hemoglobin 10.5, platelets 322,000. Chemistries: Sodium 141, potassium 3.7, chloride 104, bicarb 34, BUN 21, creatinine 0.85, glucose 145, calcium 9.5. ABG this morning: pH 7.282, pCO2 of 74.1, pO2 of 69.5. ASSESSMENT AND PLAN: Mr. Ordoñez is a 75-year-old male with a past medical history of hypertension, hyperlipidemia, diabetes, COPD with pulmonary fibrosis and chronic hypoxemic and hypercarbic respiratory failure on 2 liters nasal cannula oxygen, history of squamous cell carcinoma stage 3 or 4; status post chemo/RT, who was initially admitted with complaints of increasing shortness of breath and cough. Patient was admitted for an acute COPD exacerbation and was planned for discharge on 12/17/2020. He had a rapid response called, however, while he was eating his dinner where he had choked and aspirated on some pie. During the rapid response, he was able to expectorate the piece of pie. He was transferred to the ICU as he was hypoxic and initially was obtunded and minimally responsive. In the ICU, however after bag mask ventilation, patient's mental status and oxygenation improved. 1. Acute on chronic hypoxemic and hypercarbic respiratory failure in the setting of his acute aspiration event: Patient has chronic hypercarbia in the setting of his COPD and pulmonary fibrosis as well as chronic hypoxemia on 2 liters nasal cannula oxygen. -Patient was ordered for BiPAP yesterday, however, he was only ordered for very brief episodes given concern for mucous clearance. He actually did not receive any of the BiPAP yesterday as there was issue finding an adequately fitting facemask for the BiPAP and his repeat ABG today shows improvement without need for any noninvasive ventilation. -Patient does continue to have some mild acute on chronic hypercarbia compared to his baseline. He is improving, however, with mucous clearance techniques and bronchodilators. Will continue pulmonary toilet maneuvers with hypertonic saline nebulized with Albuterol and percussion vest. Will also ensure he has Acapella device as well to help with mucous clearance. -Will continue with Solu-Medrol at 40 mg every 12 hours as well. -Will repeat his ABG later this afternoon. If he does have worsening hypercarbia, then could consider bi-level ventilation, however given concerns for aspiration and mucous clearance, he may difficulty with the BiPAP and may need intubation and mechanical ventilation. -Patient is pending speech and swallow evaluation today. -He was started on Zosyn for presumed aspiration pneumonia. Will check his Procalcitonin today. He did have improvement in his leukocytosis. -Patient is on I.V. fluids as he is n.p.o. He did have some improvement in his BUN and creatinine with the I.V. fluid hydration. Will decrease his rate from his half NS at 100 cc an hour to 50 cc an hour. DVT prophylaxis: Lovenox. Code status: Full code. Will continue to address his goals of care with the patient and his family given his chronic lung condition as well as his advanced cancer and concern for recurrent aspiration risk. TOTAL CRITICAL CARE TIME SPENT NOT INCLUDING PROCEDURES: Approximately 45 minutes. MTDD
--- NOTE | 2020-12-18 12:31 | CR.PDOC ---
General Date of Consultation: Dec 18, 2020 Referring Provider: FAY FLEMING MD MPH Primary Care Physician David Hernandez Consultation REASON FOR CONSULTATION/CHIEF COMPLAINT: Clarification of goals of care HISTORY OF PRESENT ILLNESS: this 75 year old with Agent [place] exposure has multiple medical problems including COPD/pulmonary fibrosis, lung cancer, prostate cancer, DM who was admitted here after developing increasing dyspnea and cough. He was admitted with presumed COPD exacerbation and was ready to be discharged yesterday when he aspirated a portion of barajas pie, Heimlich as successful but he continued to be obtunded and lethargic. He is in ICU at this point, I am informed by nursing swallow study at the bedside was not evaluable and he needs to have a second study off the floor. He remains dyspneic with any activity, and even resting in bed, it is a struggle to breathe. He stated he "thinks" he has HCP but isn't sure. He is a full code. ALLERGIES: Please see below. HOME MEDICATIONS: Please see below. PAST MEDICAL HISTORY: 1. SCCA lung s/p chemo and RT, he reports Dr. Young is considering immunotherapy now 2. DM 3. COPD/pulmonary fibrosis and chronic hypoxic failure 4. previosu prostate ca 5. MIRZA non compliant with CPAP 6. HTN 7. hyperlipidemia 8. migraine 9. anxiety 9. iron deficiency anemia PAST SURGICAL HISTORY: 1. tonsillectomy 2. aparial amp of toe 3. 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 Reports significatn weight loss over past year ( normal weight in 150's, 118 presently ) HEENT: dysphagia CARDIOVASCULAR: denies chest pain or pressure, no palpitations RESPIRATORY: dyspneic, takes constant effort to breathe even at rest GENITOURINARY: denies dysuria MUSCULOSKELETAL: denies cramping, spasm, joint pain or redness GASTROINTESTINAL: reports appetite is good, but weight has not increased, denies n/v/c/d SKIN: denies rashes bruising NEUROLOGICAL: reports fatigue, weakness PSYCHIATRIC: anxious, but stated "I have people praying for me and I know I'll get better" ENDOCRINE: DM denies hypo/hyperglycemia HEMATOLOGIC/LYMPHATIC: protate ca history, lung cancer . PHYSICAL EXAMINATION: VITAL SIGNS: Please see below. GENERAL APPEARANCE: cachectic appearing male, wearing O2, breathy speech due to dyspnea HEENT: moist muscous membranes, some missing teeth, pharynx clear RESPIRATORY: scattered wheexes and rhonchi decreased breath sounds bilateral bases CARDIOVASCULAR: RRR tachy ABDOMEN: scaphoid, no guarding or rebound, +BS EXTREMITIES: no C/C/E NEUROLOGICAL: reasonable strength all four extremities, though easy give way to resistance, no tremor noted PSYCHIATRIC: poor eye contact, evasive about discussion regarding goals of care, insisting he will get better, get immunotherapy, return home and continue living his life as he has for the past several years. LABORATORY DATA: Please see below. ASSESSMENT/PLAN: 1. SCCA lung cancer in debilitated male with aspiration. I spent 45 minutes discussing with Mr. Ordoñez given his numerous medical problems, his body may be getting overwhelmed trying to cope with his COPD/fibrosis, cancer and with the problems with aspiration, he may need to consider whether or not he would want to have a feeding tube. He stated "I won't need a feeding tube because I will get better." I asked him if he had considered what he would do if he is not well enough to tolerate immunotherapy to treat his cancer. He stated he has not given any thought to that because he will get better and immunotherapy will reduce his cancer burden further. I explained to him he needs to be well enough to tolerate immunotherapy ( or any other cancer treatment for that matter ). He appears to feels that since he has bounced back from medical set backs in the past, he will bounce back from this one. 2. I left him a copy of [facility] to review with his when she gets here. I explained given his general debility, problems with dyspnea and now, problems with aspiration, he will have some difficult decisions to make in the near future, the most pressing of which will likely be whether or not to have a feeding tube placed. He appears to feel he will not need the feeding tube as he will recover his ability to swallow safely. My question about what he might choose to do if that did not happen and he could not swallow safely was met with "I don't know, I am going to get better and get back home to my grandkids and ." I left my business card along with [facility]. I do not see him being reasonably able to make follow up appointments in my clinic unless his condition improves dramatically and I am not set up to do house visits. Clarification of the patient's cancer diagnosis ( patient was insistent his cancer is Stage 3 not Stage 4 ) with Dr. Young at [facility] is recommended and Dr. Young should be apprised of Mr. Ordoñez's current state. Vital Signs/I&O Vital Signs Date Time Temp Pulse Resp B/P (MAP) Pulse Ox O2 Delivery O2 Flow Rate FiO2 12/18/20 10:00 96 Nasal Cannula 2.0 12/18/20 08:00 97.9 118 26 121/67 (85) I&O- Last 24 Hours up to 6 AM 12/18/20 05:59 Intake Total 1060 ml Output Total 1125 ml Balance -65 ml Laboratory Data Labs 24H Laboratory Tests 2 12/17/20 16:44: Bedside Glucose (Misc Panel) 159H 12/17/20 17:40: Blood Gas Bicarbonate Standard 20.9L, Arterial Blood pH 6.950*L, Arterial Blood Partial Pressure CO2 144.6*H, Arterial Blood Partial Pressure O2 67.6L, Arterial Blood Total CO2 35.5H, Arterial Blood HCO3 31.1H, Arterial Blood Base Excess - 4.0L, Arterial Blood Oxygen Saturation 83.9L 12/17/20 17:59: Blood Gas Bicarbonate Standard 25.2, Arterial Blood pH 7.176*L, Arterial Blood Partial Pressure CO2 86.1*H, Arterial Blood Partial Pressure O2 97.1, Arterial Blood Total CO2 33.8H, Arterial Blood HCO3 31.1H, Arterial Blood Base Excess 0.9, Arterial Blood Oxygen Saturation 96.4, Immature Granulocyte % (Auto) 1.0, Neutrophils (%) (Auto) 93.0H, Lymphocytes (%) (Auto) 2.7L, Monocytes (%) (Auto) 3.2, Eosinophils (%) (Auto) 0.0, Basophils (%) (Auto) 0.1, Neutrophils # (Auto) 14.4H, Lymphocytes # (Auto) 0.4L, Monocytes # (Auto) 0.5, Eosinophils # (Auto) 0.0, Basophils # (Auto) 0.0, Nucleated Red Blood Cells % (auto) 0.0, Anion Gap 3L, Glomerular Filtration Rate > 60.0, Calcium Level 9.7, Total Bilirubin 0.1#L, Aspartate Amino Transf (AST/SGOT) 20, Alanine Aminotransferase (ALT/SGPT) 18, Alkaline Phosphatase 82, Troponin I < 0.02, Total Protein 8.0, Albumin 2.6L, Albumin/Globulin Ratio 0.5 12/17/20 20:14: Bedside Glucose (Misc Panel) 252H 12/18/20 00:28: Bedside Glucose (Misc Panel) 94 12/18/20 04:52: Bedside Glucose (Misc Panel) 157H 12/18/20 05:34: Blood Gas Bicarbonate Standard 29.3H, Arterial Blood pH 7.282L, Arterial Blood Partial Pressure CO2 74.1*H, Arterial Blood Partial Pressure O2 69.5L, Arterial Blood Total CO2 36.5H, Arterial Blood HCO3 34.2H, Arterial Blood Base Excess 5.5H, Arterial Blood Oxygen Saturation 93.6L 12/18/20 08:43: Neutrophils (%) (Auto) , Nucleated Red Blood Cells % (auto) 0.0, Neutrophils 80H, Band Neutrophils 9, Lymphocytes (Manual) 9L, Monocytes (Manual) 2, Platelet Estimate NORMAL, Anion Gap 3L, Glomerular Filtration Rate > 60.0, Calcium Level 9.5, Procalcitonin 0.10 CBC/BMP Laboratory Tests 12/17/20 17:59 12/18/20 08:43 Microbiology Microbiology 12/17/20 Blood Culture, Received Pending 12/15/20 Respiratory Virus Panel (PCR) ([facility]) - Final, Complete Allergies Coded Allergies: No Known Allergies (Unverified , 01/12/19) Home Medications Scheduled Alogliptin Benzoate (Nesina) 12.5 Mg Tablet, 12.5 MG PO QHS, (Reported) Aspirin (Aspirin EC) 81 Mg Tablet.dr, 81 MG PO DAILY, (Reported) Bupropion HCl (Bupropion HCl Sr) 150 Mg Tab.sr.12h, 150 MG PO BID, (Reported) Cetirizine HCl (Cetirizine HCl) 10 Mg Tablet, 10 MG PO DAILY for 30 Days, #30 Cholecalciferol (Vitamin D3) (Vitamin D3) 1,000 Unit Tablet, 1,000 UNITS PO QHS, (Reported) Cyanocobalamin (Vitamin B-12) (Vitamin B-12) 500 Mcg Tablet, 500 MCG PO Q2D, (Reported) EVERY OTHER DAY AT QHS Empagliflozin (Jardiance) 25 Mg Tablet, 12.5 MG PO DAILY, (Reported) Ferrous Gluconate (Ferrous Gluconate) 324 Mg Tablet, 324 MG PO DAILY, (Reported) Metformin HCl (Metformin HCl) 1,000 Mg Tablet, 1,000 MG PO BID, (Reported) Metoprolol Succinate (Metoprolol Succinate) 25 Mg Tab.er.24h, 12.5 MG PO QHS, (Reported) Multivitamins (Thera M Plus Tablet) 1 Each Tablet, 1 TAB PO BID, (Reported) Pantoprazole Sodium (Pantoprazole Sodium) 40 Mg Tablet.dr, 40 MG PO DAILY, (Reported) Pioglitazone HCl (Pioglitazone HCl) 45 Mg Tablet, 45 MG PO QHS, (Reported) Prednisone (Prednisone) 50 Mg Tablet, 50 MG PO DAILY for 3 Days, #3 Complete prednisone burst Rosuvastatin Calcium (Rosuvastatin Calcium) 40 Mg Tablet, 40 MG PO QHS, (Reported) Sennosides (Eileen-Mario) 8.6 Mg Tablet, 8.6 MG PO BID, (Reported) Topiramate (Topiramate) 200 Mg Tablet, 100 MG PO BID, (Reported) Scheduled PRN Albuterol Sulfate (Albuterol Sulfate Hfa) 8.5 Gm Hfa.aer.ad, 2 PUFFS INH Q4H PRN for SHORTNESS OF BREATH, (Reported) Hydrocortisone (Proctozone-Hc) 30 Gm Crm.pe.claudia, 1 DOSE EXT BID PRN for RASH/ITCHING, (Reported) APPLIES TO TAILBONE NEEDED Prochlorperazine Maleate (Prochlorperazine Maleate) 10 Mg Tablet, 10 MG PO Q6H PRN for NAUSEA OR VOMITING, (Reported) Sildenafil Citrate (Sildenafil Citrate) 100 Mg Tablet, 50 MG PO DAILY PRN for ERECTILE DYSFUNCTION, (Reported) Sumatriptan Succinate (Sumatriptan Succinate) 100 Mg Tablet, 100 MG PO BID PRN for MIGRAINE, (Reported) Ness PEREZ Dec 18, 2020 12:31
[2020-12-18 13:39] LABS: ABG HCO3 29.7 MEQ/L (22.0-26.0); ABG O2 LITER FLOW 2 L; ABG PARTIAL PRESSURE O2 78.8 mmHg (75.0-100.0); ABG STANDARD HCO3 25.4 MEQ/L (22.0-26.0); ABG TOTAL CO2 31.9 MEQ/L (23.0-31.0)
[2020-12-18 13:42] LABS: ABG PARTIAL PRESSURE CO2 70.1 mmHg (35.0-45.0); ABG pH (ARTERIAL) 7.245 UNITS (7.350-7.450)
[2020-12-18] MEDS ORDERED: METOPROLOL 5 MG/5 ML VIAL IV STA (18:03)
[2020-12-18] MEDS ORDERED: METOPROLOL 5 MG/5 ML VIAL As Ordered ONE (18:06)
[2020-12-18] MEDS ORDERED: METOPROLOL 5 MG/5 ML VIAL IV PRN (18:30)
--- NOTE | 2020-12-18 18:31 | IPNPDOC ---
Text Note Date of Service The patient was seen on 12/18/20. NOTE SUBJECTIVE: Patient continues to have difficulty swallowing and has intermittent tachycardia with increased WOB. Had long conversation with patient, , and son about goals of care and have determined to continue full code. Will readdress tomorrow after swallow study. Patient expresses interest in continuing to eat despite significant aspiration risk and risk of . PHYSICAL EXAMINATION: VITAL SIGNS: see below GENERAL APPEARANCE: Awake, alert, oriented x 3. cachectic, weak, mildly increased work of breathing HEENT: Atraumatic, normocephalic. Eyes are anicteric. Mucous membranes are pink and moist CARDIOVASCULAR: tachycardic regular rhythm, no noted murmurs LUNGS: faint bilateral rhonchi, slight accessory muscle use ABDOMEN: Normoactive sounds, soft, nondistended. No rebound tenderness or guarding. EXTREMITIES: No lower extremity edema, no apparent rashes/petechiae. NEUROLOGICAL: Awake, speech is frail, AOx3 LABORATORY DATA: As per below IMAGING: No recent ASSESSMENT: This is a 75 y/o male with a PMHx of COPD on 2L of O2 at home, stage 4 lung ca currently undergoing monthly maintenance therapy, DM2, prostate ca s/p prostatectomy, HTN and HLD who presents to the ED with a cc of increased sob x4 days with labs indicating hypercarbia c/w chronic respiratory failure. He was pending discharge when he aspirated on pie. He had acute respiratory failure but recovered following suction of foreign body and bagging. PLAN: # Aspiration event: Continue NPO, continue abx for aspiration pneumonia prevention, continue ABG monitoring. - NPO - FSBG QHS - continue maintenance fluids - Swallow eval in the morning # Tachycardia: Likely due to increased work of breathing. - Will provide with lopressor 5mg IV x3 PRN HR sustained >130, hold for HR <100 # COPD with acute exacerbation: Patient has acute hypercarbia in the setting of COPD and stage 4 lung cancer. Patient was pending discharge while on home medications. Will continue this plan while he remains overnight for additional monitoring. - Albuterol neb q1h PRN - Duoneb Q4H PRN - IS - Continue methylpred - Continue Zyrtec daily - O2 PRN sats <89% # DM2: Stable with ISS in the setting of steroid use. - ISS in setting of NPO status # HTN: Hold home medications # HLD: Hold home Rosuvastatin # Migraines: Hold home medications # GERD: - Provide with Protonix IV # Depression: Hold home medications Encourage good day-night cycling Dispo: Continue to monitor overnight in ICU Code: Full Code, continue to engage goals of care discussion Diet: NPO DVT Prophy: Lovenox Consults: CHANNEL ACCOUNT MANAGER VS,Javier, I+O VS, Javier, I+O Laboratory Tests 12/18/20 08:43 Vital Signs Date Time Temp Pulse Resp B/P (MAP) Pulse Ox O2 Delivery O2 Flow Rate FiO2 12/18/20 18:08 168 132/65 12/18/20 13:00 94 Nasal Cannula 2.0 12/18/20 12:00 98.4 60 I&O- Last 24 Hours up to 6 AM 12/18/20 06:00 Intake Total 700 ml Output Total 1025 ml Balance -325 ml FAY FLEMING MD MPH Dec 18, 2020 18:31
[2020-12-19] VITALS (20 sets, daily range): BP systolic 108–134; BP diastolic 56–80; O2SAT 92–100
[2020-12-19] MEDS: IPRATROPIUM 0.5MG/ALBUTEROL 2.5MG INH SOL UD 3ML (DUONEB) NEB PRN ×4 (02:57→19:45)
[2020-12-19] MEDS: SODIUM CHLORIDE HYPERTONIC 3% 15ML NEB SOL INH SCH ×4 (02:57→19:45)
[2020-12-19] MEDS: PIPERACILLIN/TAZOBACTAM SOD 3.375 GM in D5W MINI-BAG PLUS 50 ML IV SCH (04:44)
[2020-12-19 06:18] LABS: ABG BASE EXCESS 6.9 (-2.0-2.0); ABG HCO3 35.5 MEQ/L (22.0-26.0); ABG O2 SATURATION 98.7 % (95.0-99.0); ABG STANDARD HCO3 30.8 MEQ/L (22.0-26.0); ABG TOTAL CO2 37.8 MEQ/L (23.0-31.0); ABG pH (ARTERIAL) 7.287 UNITS (7.350-7.450)
[2020-12-19 06:34] LABS: BASO % 0.1 % (0.0-1.0); HEMATOCRIT 35.4 % (42.0-52.0); HEMOGLOBIN 10.1 g/dl (13.5-17.5); LYMPH # 0.1 10^3/uL (1.5-5.0); LYMPH % 1.1 % (24.0-44.0); MEAN CORPUSCULAR HEMOGLOBIN 30.3 pg (27.0-33.0); MEAN CORPUSCULAR HGB CONC 28.5 g/dl (32.0-36.5); MEAN CORPUSCULAR VOLUME 106.3 fl (80.0-96.0); MONO # 0.7 10^3/uL (0.0-0.8); MONO % 8.7 % (2.0-8.0); NEUTROPHILS # 7.3 10^3/uL (1.5-8.5); NEUTROPHILS % 89.9 % (36.0-66.0); PLATELET COUNT, AUTOMATED 284 10^3/uL (150-450); RED BLOOD COUNT 3.33 10^6/uL (4.30-6.10); WHITE BLOOD COUNT 8.1 10^3/uL (4.0-10.0)
[2020-12-19] MEDS: HumaLOG INSULIN (NovoLOG) PER UNIT SC SCH ×3 (06:52→18:00)
[2020-12-19 07:04] LABS: BLOOD UREA NITROGEN 23 MG/DL (7-18); CALCIUM LEVEL 9.4 MG/DL (8.8-10.2); CARBON DIOXIDE LEVEL 39 MEQ/L (21-32); CHLORIDE LEVEL 102 MEQ/L (98-107); CREATININE FOR GFR 0.86 MG/DL (0.70-1.30); GLOMERULAR FILTRATION RATE > 60.0 (>42); GLUCOSE, FASTING 159 MG/DL (70-100); MAGNESIUM LEVEL 2.4 MG/DL (1.8-2.4); POTASSIUM SERUM 3.8 MEQ/L (3.5-5.1); SODIUM LEVEL 142 MEQ/L (136-145)
[2020-12-19] MEDS: methylPREDNISolone 40MG 1ML VIAL IV SCH (07:53)
[2020-12-19] MEDS: ENOXAPARIN 40MG/0.4ML SYRINGE (J1650 PER 10MG) SC SCH (09:32)
[2020-12-19] MEDS: PANTOPRAZOLE 40MG VIAL (C9113 PER 1) IV SCH (09:32)
[2020-12-19] MEDS: cefTRIAXone SOD 1 GM in D5W MINI-BAG PLUS 50 ML IV SCH ×2 (09:40→22:35)
[2020-12-19] MEDS: NS 0.45% 1,000 ML IV SCH (09:41)
--- NOTE | 2020-12-19 09:54 | CCN ---
CRITICAL CARE NOTE DATE: 12/19/2020 SUBJECTIVE: Patient was seen and examined this morning during bedside rounds. Patient was seen yesterday by Speech and Swallow at the bedside but they were unable to fully evaluate him. He was deemed to need a cookie swallow evaluation which is pending for today. Palliative Care had seen the patient yesterday as well to discuss goals of care. He also had a discussion with his family and the Hospitalist about his goals of care. Patient today again expressed that he would not want any feeding tube placement but that he would want to continue eating. When discussing if he does fail his cookie swallow and he is determined to be unable to eat safely, at that point what would his decision be and the patient stated that he "would have no difficulty eating and would continue to do so." This morning he continues to have dyspnea particularly with minimal exertion which is unchanged. He states he does have difficulty speaking because of weakness with is voice and some dryness in his mouth. He does continue to have some cough and mucous production with occasionally more brown mucous but denies any hemoptysis. He has not had any chest pain and no fevers or chills. He denies any nausea or vomiting. He did have a suppository yesterday given his history of constipation. OBJECTIVE: VITAL SIGNS: Temperature 98.1, pulse 115, respirations 20, blood pressure 118/70, O2 sat 100% on 2 liters nasal cannula. INPUT AND OUTPUT: In 1.7 liters, out 1.0 liters, net positive 650 ml. GENERAL: Patient is a cachectic male. He is awake and alert, and oriented x3. He is tachypneic and is able to speak in short sentences with a faint hoarse voice. He does have some mild accessory respiratory muscle use. HEENT: Normocephalic, atraumatic. There is temporal wasting. Moist mucous membranes are noted. Mallampati Class 1. NECK: Supple. Trachea is midline. CARDIAC: Tachycardic, regular rate and rhythm, normal S1 and S2. Unable to clearly appreciate murmurs. PULMONARY: Patient has crackles noted bilaterally with coarse rhonchi and inspiratory squeaks more on the left side. He has some diminished breath sounds in the right base. ABDOMEN: Scaphoid, soft, nontender and nondistended. No palpable masses. EXTREMITIES: There is no lower extremity edema noted bilaterally. Patient has generalized weakness. LABORATORY DATA: WBC 8.1, hemoglobin 10.1, platelets 284,000. Chemistries: Sodium 142, potassium 2.8, chloride 102, bicarbonate 39, BUN 23, creatinine 0.86, glucose 159. ABG: pH 7.287, pCO2 76, pO2 of 127.0. ASSESSMENT AND PLAN: Mr. Ordoñez is a 75-year-old male with a past medical history of hypertension, hyperlipidemia, diabetes, COPD with pulmonary fibrosis and chronic hypoxemic and hypercarbic respiratory failure, history of squamous cell carcinoma presumed Stage III, questionable Stage IV, status post chemo/RT, on immunotherapy, who was initially admitted with shortness of breath and cough. Patient was admitted and treated for an acute COPD exacerbation and was planned for discharge, however on the day of discharge he had a Rapid Response called as patient had an episode of choking and aspiration where he was hypoxic as well was found to have acute on chronic hypercarbic respiratory failure. He was transferred to the ICU for further management. 1. Acute on chronic hypoxemic and hypercarbic respiratory failure. The patient had an acute aspiration event in which triggered his acute worsening hypoxemia. He appears to be close to his baseline in terms of his oxygen requirements. He does continue to have chronic hypercarbia which is slightly worse than his baseline likely in the setting of COPD exacerbation as well as potential aspiration pneumonia. He does have chronic pulmonary fibrosis as well contributing to his chronic hypoxemia and hypercarbia. Patient has not required any use of noninvasive positive pressure ventilation. With mucous clearance and bronchodilators he did have improvement in his chronic hypercarbia although is still mildly retaining at this time. Would continue to closely monitor his respiratory status. If it does appear that he is having respiratory fatigue or change in mental status, then he may require noninvasive positive pressure ventilation at that time. He continues to be tachypneic with minimal exertion and there is concern given his poor functional and nutritional status of continued decline in his respiratory function. There is still some concern with his difficulty with mucous clearance and aspiration whether he can even tolerate noninvasive ventilator as it may cause worsening mucous impaction. The patient is having ongoing discussion still with his goals of care, particularly given his issues with aspiration. There has been discussion with Palliative about if he fails his cookie swallow evaluation whether or not he would want a feeding tube and more aggressive measures versus comfort feeds and placing the patient on more comfort measures. He is still somewhat undecided and appears to be in some denial when addressing the concerns of the primary team in terms of his needs for potential feeding tube given his aspiration and nutritional deficiency. Will continue with mucous clearance techniques with hypertonic saline nebulized with Albuterol and Acapella and percussion vest. Will continue Solu-Medrol but taper him down to 40 mg daily. Will follow-up with the results of his cookie swallow evaluation. Patient was on Zosyn for his presumed aspiration pneumonia. He has had improvement in his leukocytosis and his procalcitonin was 0.10. Would deescalate him to oral antibiotics, however given his issues with aspiration will keep him on IV antibiotics with deescalation to Ceftriaxone. Continue with IV fluids while NPO. He is on 1/2 NS at 50 ml an hour. DVT prophylaxis, Lovenox. CODE STATUS: Full code currently. Will continue to follow-up with goals of care discussion after his cookie swallow evaluation. Total critical care time spent not including procedures approximately 40 minutes. MTDD
[2020-12-19] MEDS ORDERED: BARIUM SULFATE 700 MG TABLET (E-Z-DISK) As Ordered ONE (10:26)
[2020-12-19] MEDS ORDERED: E-Z-PAQUE 96% w/w SUSP 176GM BTL As Ordered ONE (10:26)
[2020-12-19] MEDS ORDERED: VARIBAR PUDDING 40% w/v 230ML TUBE As Ordered ONE (10:26)
[2020-12-19] MEDS ORDERED: VARIBAR NECTAR 40% w/v 240ML SUSP BTL As Ordered ONE (10:26)
--- NOTE | 2020-12-19 13:34 | IPNPDOC ---
Text Note Date of Service The patient was seen on 12/19/20. NOTE SUBJECTIVE: Patient completed cookie swallow this morning and feels that it "went very well from his perspective." SPRINKLER IRRIGATION EQUIPMENT MECHANIC reports that he had silent aspiration with all levels of liquid and solids and there was no safe consistency diet for him at this time. Patient has no complaints at this point. PHYSICAL EXAMINATION: VITAL SIGNS: see below GENERAL APPEARANCE: Awake, alert, oriented x 3. cachectic, weak, patient rapidly desaturates while speaking HEENT: Atraumatic, normocephalic. Eyes are anicteric. Mucous membranes are pink and moist CARDIOVASCULAR: tachycardic regular rhythm, no noted murmurs LUNGS: faint bilateral rhonchi, slight accessory muscle use ABDOMEN: Normoactive sounds, soft, nondistended. No rebound tenderness or guarding. EXTREMITIES: No lower extremity edema, no apparent rashes/petechiae. NEUROLOGICAL: Awake, speech is frail, AOx3 LABORATORY DATA: As per below IMAGING: No recent ASSESSMENT: This is a 75 y/o male with a PMHx of COPD on 2L of O2 at home, stage 4 lung ca currently undergoing monthly maintenance therapy, DM2, prostate ca s/p prostatectomy, HTN and HLD who presents to the ED with a cc of increased sob x4 days with labs indicating hypercarbia c/w chronic respiratory failure. He was pending discharge when he aspirated on pie. He had acute respiratory failure but recovered following suction of foreign body and bagging. He remains hospitalized due to profound hypoxia with minimal exertion and continued significant aspi ration risk following his aspiration event. PLAN: # Aspiration event: Patient continues to have acute on chronic hypercarbic respiratory failure with ABGs that have somewhat improved since his aspiration event. He continues to be a full code but has not required BiPAP or invasive pulmonary intervention. He remains in the ICU given his significant risk for reaspiration as well as his tenuous oxygen status. He had barium swallow this morning which demonstrated significant weakness and failure to clear posterior oropharynx with multiple swallows as well as silent aspiration with swallowing any consistency liquid and solid. Patient's family will be coming in this afternoon to continue to discuss goals of care however there continues to be a very significant degree of denial in the severity of his multiple disease processes. At this time patient is contemplating PEG placement v. moving to RESTORATIVE [employer] EMBALMER and having comfort feeds. Should he chose PEG, would likely place NGT for feeds until this can be coordinated. Continue NPO, will discontinue Zosyn given improvement in leukocytosis but given significant risk for aspiration and unclear disposition plan from an advanced care directive, will continue CTX. Appreciate ICU recommendations to taper steroids. Meds: - Solu-Medrol 40mg IV daily - Ceftriaxone IV - pulmonary toilet - NPO - FSBG QHS - continue maintenance fluids - Goals of care discussions are ongoing # significant malnutrition: Patient has acute on chronic malnutrition due in part to advanced malignancy, in part to chronic aspiration, and in part due to acute illness on hospitalization and increased work of breathing. Barium swallow did not reveal a safe consistenc y of food for him to consume and goals of care discussion is pending with patient and his family. At this time he has said both that he wants to eat because he loves food and he won't aspirate, and that he would maybe chose a PEG tube. Will likely place NGT if PEG and continued full code is chosen by patient and his family. - Ongoing goals of care discussion # Tachycardia: Likely due to increased work of breathing. - Will provide with lopressor 5mg IV x3 PRN HR sustained >130, hold for HR <100 # COPD with acute exacerbation: Patient has acute hypercarbia in the setting of COPD and stage 4 lung cancer. Continue breathing treatments and pulmonary toilet - Albuterol neb q1h PRN - Duoneb Q4H PRN - IS - Continue Solu-Medrol - O2 PRN sats <89% # Stage IV lung cancer: Patient and family have poor insight into the severity of his malignancy and other illnesses. Have engaged with Palliative Care, however patient will not be able to travel to appointments once discharged and will not be able to engage with Palliative Care at this time. Will have NCM and SW engage with family in hospital and upon discharge. # DM2: Stable with ISS in the setting of steroid use. - ISS in setting of NPO status # HTN: Hold home medications # HLD: Hold home Rosuvastatin # Migraines: Hold home medications # GERD: - Provide with Protonix IV # Depression: Hold home medications Encourage good day-night cycling Dispo: Continue to monitor overnight in ICU Code: Full Code, continue to engage goals of care discussion Diet: NPO DVT Prophy: Lovenox Consults: SPRINKLER IRRIGATION EQUIPMENT MECHANIC, palliative care, VS,Yossimarisela, I+O VS, Antbone, I+O Laboratory Tests 12/19/20 06:24 Vital Signs Date Time Temp Pulse Resp B/P (MAP) Pulse Ox O2 Delivery O2 Flow Rate FiO2 12/19/20 08:00 98.1 116 28 117/69 (85) 94 Nasal Cannula 2.0 I&O- Last 24 Hours up to 6 AM 12/19/20 06:00 Intake Total 1700 ml Output Total 700 ml Balance 1000 ml FAY FLEMING MD [facility] Dec 19, 2020 13:34
--- NOTE | 2020-12-19 17:17 | REP ---
INDICATION: pt coughing and choking. COMPARISON: None. TECHNIQUE: The procedure was performed by Tati Tucker [facility], under the direct supervision of Dr. Lopez. The procedure was performed with Chelle Byrnes from speech pathology present. 5 ml aliquots of nectar thick, honey thick, and applesauce consistency barium was administered. FINDINGS: Both penetration and aspiration were visualized during the exam. The detailed report of this examination will be provided by speech pathology. IMPRESSION: Both aspiration and penetration were visualized during the exam, a complete detailed report will be provided by speech pathology. 2.6 minutes of fluoroscopy time was utilized for this procedure. Some fluoroscopic images are performed with last image hold technology. These images require no additional radiation <Electronically signed by Tati Tucker > 12/19/20 1238 <Electronically signed by Marquise Lopez > 12/19/20 [id number]
[2020-12-19] MEDS ORDERED: ACETAMINOPHEN 325 MG/10.15 ML UDC GT PRN (18:25)
--- NOTE | 2020-12-19 19:28 | REP ---
INDICATION: low chest xray for NG Tube placement confirmation. COMPARISON: None. TECHNIQUE: Incomplete chest and abdomen frontal radiograph obtained with the patient sitting for the sole purpose of evaluating the distal portion of a recently passed nasogastric tube. FINDINGS: The distal portion of the nasogastric tube is seen beneath the diaphragmatic surface of the left lung presumably within the stomach fundal region. The proximal port is just distal to or at the esophagogastric junction. The imaged portion of the lung avendano show no significant change from 12/17/2020. The imaged portion of the known MediPort device appears unchanged. IMPRESSION: As above <Electronically signed by Modesto Hart > 12/19/201924
[2020-12-20] VITALS (16 sets, daily range): BP systolic 123–153; BP diastolic 65–83; O2SAT 91–100
[2020-12-20] MEDS: IPRATROPIUM 0.5MG/ALBUTEROL 2.5MG INH SOL UD 3ML (DUONEB) NEB PRN ×3 (01:56→12:26)
[2020-12-20] MEDS: SODIUM CHLORIDE HYPERTONIC 3% 15ML NEB SOL INH SCH ×4 (01:56→20:00)
[2020-12-20] MEDS: HumaLOG INSULIN (NovoLOG) PER UNIT SC SCH ×4 (06:00→18:40)
[2020-12-20] MEDS: ENOXAPARIN 40MG/0.4ML SYRINGE (J1650 PER 10MG) SC SCH (08:54)
[2020-12-20] MEDS: PANTOPRAZOLE 40MG VIAL (C9113 PER 1) IV SCH (08:54)
[2020-12-20] MEDS: NS 0.45% 1,000 ML IV SCH (08:55)
[2020-12-20] MEDS: methylPREDNISolone 40MG 1ML VIAL IV SCH (08:55)
[2020-12-20 10:43] LABS: HEMATOCRIT 37.2 % (42.0-52.0); HEMOGLOBIN 10.7 g/dl (13.5-17.5); MEAN CORPUSCULAR HEMOGLOBIN 30.4 pg (27.0-33.0); MEAN CORPUSCULAR HGB CONC 28.8 g/dl (32.0-36.5); MEAN CORPUSCULAR VOLUME 105.7 fl (80.0-96.0); PLATELET COUNT, AUTOMATED 269 10^3/uL (150-450); RED BLOOD COUNT 3.52 10^6/uL (4.30-6.10); WHITE BLOOD COUNT 9.5 10^3/uL (4.0-10.0)
[2020-12-20 11:04] LABS: BLOOD UREA NITROGEN 23 MG/DL (7-18); CALCIUM LEVEL 9.7 MG/DL (8.8-10.2); CARBON DIOXIDE LEVEL 39 MEQ/L (21-32); CHLORIDE LEVEL 102 MEQ/L (98-107); CREATININE FOR GFR 0.67 MG/DL (0.70-1.30); GLOMERULAR FILTRATION RATE > 60.0 (>42); GLUCOSE, FASTING 208 MG/DL (70-100); SODIUM LEVEL 142 MEQ/L (136-145)
[2020-12-20] MEDS: cefTRIAXone SOD 1 GM in D5W MINI-BAG PLUS 50 ML IV SCH ×2 (11:08→23:29)
--- NOTE | 2020-12-20 12:18 | IPNPDOC ---
Text Note Date of Service The patient was seen on 12/20/20. NOTE SUBJECTIVE: -Weak, lethargic, awake on voice, oriented. -Has persistent dyspnea PHYSICAL EXAMINATION: VITAL SIGNS: see below GENERAL APPEARANCE: Awake, alert, oriented x 3. cachectic, weak, ill appearing HEENT: Atraumatic, normocephalic. Eyes are anicteric. Mucous membranes are pink and moist CARDIOVASCULAR: tachycardic regular rhythm, no noted murmurs LUNGS: Bilateral rhonchi, has significant accessory muscle use, poor effort ABDOMEN: Normoactive sounds, soft, nondistended. No rebound tenderness or guarding. EXTREMITIES: No lower extremity edema, no apparent rashes/petechiae. NEUROLOGICAL: Awake, speech is frail, AOx3 LABORATORY DATA: As per below IMAGING: No recent ASSESSMENT: 75 y/o M with stage 4 lung ca currently undergoing monthly palliative immuno therapy, COPD on 2L of O2 at home, DM2, prostate ca s/p prostatectomy, HTN and HLD who presents to the ED with increased sob x4 days with labs indicating hypercarbia c/w chronic respiratory failure and was pending discharge when he aspirated on pie and he had acute respiratory failure but recovered following suction of foreign body and bagging and therefore remains hospitalized due to profound hypoxia with minimal exertion and continued significant aspiration risk following his aspiration event. PLAN: # Aspiration event: Patient continues to have acute on chronic hypercarbic respiratory failure with ABGs that have somewhat improved since his aspiration event. -Now DNR/DNI, with no BiPAP/CPAP -He had barium swallow yesterday which demonstrated significant weakness and failure to clear posterior oropharynx with multiple swallows as well as silent aspiration with swallowing any consistency liquid and solid. -Expressed interest in PEG placement, now s/p NGT for feeds -Solu-Medrol 40mg IV daily - Ceftriaxone IV - pulmonary toilet - NPO - FSBG Q6H - continue maintenance fluids # significant malnutrition: -NGT with feeds, with plan for PEG placement - Ongoing goals of care discussion, now DNR/DNI but patient's family would like to continue immunotherapy for now # Tachycardia: Likely due to increased work of breathing. - lopressor 5mg IV x3 PRN HR sustained >130, hold for HR <100 # COPD with acute exacerbation: Patient has acute hypercarbia in the setting of COPD and stage 4 lung cancer. - Continue breathing treatments and pulmonary toilet - Albuterol neb q1h PRN - Duoneb Q4H PRN - IS - Continue Solu-Medrol with pred taper shortly - O2 PRN sats <89% # Stage IV lung cancer: Patient and family have poor insight into the severity of his malignancy and other illnesses. Have engaged with Palliative Care, however patient will not be able to travel to appointments once discharged and will not be able to engage with Palliative Care at this time. -For now decided on DNR/DNI, however with interest to continue immunotherapy # DM2: Stable with ISS in the setting of steroid use. - ISS Q6H in setting of NPO status # HTN: Hold home medications # HLD: Hold home Rosuvastatin # Migraines: Hold home medications # GERD: - Provide with Protonix IV # Depression: Hold home medications Encourage good day-night cycling Dispo: Continue to monitor overnight in ICU Code: DNR/DNI Diet: NGT on feeds DVT Prophy: Lovenox Consults: SPEECH AND LANGUAGE SPECIALIST, palliative care, SW VS,Javier, I+O VS, Javier, I+O Vital Signs Date Time Temp Pulse Resp B/P (MAP) Pulse Ox O2 Delivery O2 Flow Rate FiO2 12/20/20 08:00 97.5 124 24 144/70 (94) 91 Nasal Cannula 2.0 I&O- Last 24 Hours up to 6 AM 12/20/20 06:00 Intake Total 1350 ml Output Total 1100 ml Balance 250 ml MARCY MERIDA MD Dec 20, 2020 09:35
--- NOTE | 2020-12-20 12:28 | IPN ---
PROGRESS NOTE DATE: 12/20/2020 Patient was seen and examined this morning during bedside rounds. Yesterday patient did have his cookie swallow evaluation and was noted to have evidence of silent aspiration with all levels of liquids and solids and was not seemed to have a safe consistency diet for him at this time. Patient therefore has been kept nothing by mouth. After a discussion yesterday with the hospitalist and with the patient and his family, there was a new Medical Orders for Life-Sustaining Treatment (MOLST) filled out, indicating that patient was a DO NOT RESUSCITATE/DO NOT INTUBATE with no trial of noninvasive positive pressure ventilation as well. He was, however, interested in receiving percutaneous endoscopic gastrostomy (PEG) tube for tube feeds, and so he did have an nasogastric (NG) tube placed and was started on tube feeds yesterday with the plan for PEG placement later on next week. This morning patient reports his breathing is relatively unchanged. He continues to have shortness of breath and dyspnea with exertion, which is not changed. He does notice some improvement in his cough and his mucus production with less productive mucus currently. He denies any chest pain currently. Has not had any fever or chills overnight. He denies any nausea or vomiting. He appears to be tolerating tube feeds. VITAL SIGNS: Temperature 997.5, pulse 118, respirations 18, blood pressure 123/72, oxygen saturation 91%-97% on 2 liters nasal cannula. Ins 800, out 900s, net negative 100 mL. GENERAL: Patient is a cachectic male. He is awake, alert, and oriented times three. He is tachypneic but able to speak in short sentences with a faint hoarse voice. He does have some mild accessory respiratory muscle use. HEENT: Normocephalic, atraumatic. There is temporal wasting. Mucous membranes noted. Mallampati is class I. NECK: Supple. Trachea is midline No palpable cervical adenopathy. CARDIAC: Tachycardic, regular rate and rhythm. Normal s1, S2. Unable to clearly appreciate any murmurs. PULMONARY: Patient has crackles noted bilaterally, more on the left base with diminished breath sounds on the right base. There are a few inspiratory squeaks noted, more on the left. ABDOMEN: Scaphoid, soft, nontender, nondistended. There are no palpable masses. EXTREMITIES: There is no significant lower extremity edema noted bilaterally. LABORATORY DATA: Labs from today are still pending. IMAGING: Chest x-ray yesterday for NG placement showed the NG tube in place coursing below the diaphragm. There are limited lung views. ASSESSMENT AND PLAN: Mr. 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 Patient was initially admitted and treated for an acute COPD exacerbation and was planned for discharge; however, on the day of discharge he had a rapid response called secondary to episode of choking and aspiration, where patient was noted to be severely hypoxic as well as obtunded and found to have acute on chronic hypercarbic respiratory failure. 1. Acute on chronic hypoxemic and hypercarbic respiratory failure. Patient's initial worsening was secondary to an acute aspiration event. His hypoxia did improve, and he is now on 2 liters nasal cannula oxygen, which he had been on chronically. He does continue to have some chronic hypercarbia with some mild additional acute respiratory acidosis; however, he did have improvement without need for any noninvasive positive pressure ventilation. After a discussion with the hospitalist and the patient and family, patient is now a DO NOT RESUSCITATE/DO NOT INTUBATE as well as not wanting any trial of noninvasive positive pressure ventilation. Will continue then with mucus clearance with nebulized albuterol and hypertonic saline with Acapella and percussion vest as tolerated. Will continue with aspiration precautions with head of bed elevation. He is still nothing by mouth given his failed cookie swallow evaluation, but patient is agreeable for NG tube feeds and placement of a PEG tube later next week. Will continue with antibiotics. He was de-escalated to ceftriaxone yesterday. Will continue for a 5-7 day course for presumed aspiration pneumonia. Will continue with Solu-Medrol. He was tapered down to 40 mg IV daily and will continue with a slow taper off of steroids as per the hospitalist. Patient was on maintenance fluids while nothing by mouth. Now that he is tolerating NG tube feeds, would discontinue the IV fluids and continue with fluid repletion via his NG tube. Deep venous thrombosis (DVT) prophylaxis. Lovenox. CODE STATUS: DO NOT RESUSCITATE/ DO NOT INTUBATE. Patient has poor prognosis given his underlying chronic lung disease with history of active advanced malignancy and malnourishment. In this setting would continue to discuss GOC with patient and family. Please do not hesitate to call if any further questions or concerns. JOE
[2020-12-20] MEDS ORDERED: POTASSIUM CHLORIDE 10% LIQ 20 MEQ/15 ML UDC NG ONE (12:45)
[2020-12-20 14:26] LABS: ABG BASE EXCESS 10.3 (-2.0-2.0); ABG HCO3 41.3 MEQ/L (22.0-26.0); ABG O2 SATURATION 96.8 % (95.0-99.0); ABG PARTIAL PRESSURE O2 95.4 mmHg (75.0-100.0); ABG STANDARD HCO3 34.1 MEQ/L (22.0-26.0); ABG TOTAL CO2 44.5 MEQ/L (23.0-31.0)
[2020-12-20 14:27] LABS: ABG pH (ARTERIAL) 7.217 UNITS (7.350-7.450)
[2020-12-21] VITALS (9 sets, daily range): BP systolic 136–139; BP diastolic 72–74; O2SAT 95–98
[2020-12-21] MEDS: SODIUM CHLORIDE HYPERTONIC 3% 15ML NEB SOL INH SCH ×4 (02:00→20:00)
[2020-12-21 05:55] LABS: BASO % 0.1 % (0.0-1.0); HEMATOCRIT 36.2 % (42.0-52.0); HEMOGLOBIN 10.1 g/dl (13.5-17.5); LYMPH # 0.1 10^3/uL (1.5-5.0); LYMPH % 1.1 % (24.0-44.0); MEAN CORPUSCULAR HGB CONC 27.9 g/dl (32.0-36.5); MEAN CORPUSCULAR VOLUME 107.4 fl (80.0-96.0); MONO # 0.9 10^3/uL (0.0-0.8); NEUTROPHILS % 88.8 % (36.0-66.0); PLATELET COUNT, AUTOMATED 251 10^3/uL (150-450); RED BLOOD COUNT 3.37 10^6/uL (4.30-6.10); WHITE BLOOD COUNT 10.2 10^3/uL (4.0-10.0)
[2020-12-21 06:17] LABS: BLOOD UREA NITROGEN 32 MG/DL (7-18); CALCIUM LEVEL 10.5 MG/DL (8.8-10.2); CARBON DIOXIDE LEVEL 42 MEQ/L (21-32); CHLORIDE LEVEL 104 MEQ/L (98-107); GLOMERULAR FILTRATION RATE > 60.0 (>42); GLUCOSE, FASTING 222 MG/DL (70-100); POTASSIUM SERUM 3.7 MEQ/L (3.5-5.1); SODIUM LEVEL 145 MEQ/L (136-145)
[2020-12-21] MEDS: HumaLOG INSULIN (NovoLOG) PER UNIT SC SCH ×3 (06:33→12:49)
[2020-12-21] MEDS: ENOXAPARIN 40MG/0.4ML SYRINGE (J1650 PER 10MG) SC SCH (08:36)
[2020-12-21] MEDS: methylPREDNISolone 40MG 1ML VIAL IV SCH (08:36)
[2020-12-21] MEDS: PANTOPRAZOLE 40MG VIAL (C9113 PER 1) IV SCH (08:36)
[2020-12-21] MEDS ORDERED: SCOPOLAMINE 1MG TRANSDERMAL PATCH TOP SCH (09:00)
[2020-12-21] MEDS ORDERED: METOPROLOL 5 MG/5 ML VIAL IV SCH (09:00)
[2020-12-21 09:26] LABS: ABG BASE EXCESS 15.2 (-2.0-2.0); ABG HCO3 47.4 MEQ/L (22.0-26.0); ABG O2 SATURATION 91.4 % (95.0-99.0); ABG PARTIAL PRESSURE O2 62.9 mmHg (75.0-100.0); ABG STANDARD HCO3 38.9 MEQ/L (22.0-26.0); ABG TOTAL CO2 51.1 MEQ/L (23.0-31.0)
[2020-12-21 09:29] LABS: ABG pH (ARTERIAL) 7.207 UNITS (7.350-7.450)
[2020-12-21] MEDS: cefTRIAXone SOD 1 GM in D5W MINI-BAG PLUS 50 ML IV SCH (09:50)
--- NOTE | 2020-12-21 12:09 | IPNPDOC ---
Text Note Date of Service The patient was seen on 12/21/20. NOTE SUBJECTIVE: -Weak, lethargic, opens eyes when called, non-verbal at this time -now on venturi mask -Has persistent dyspnea -Family came in yesterday, discussing E LEARNING DESIGNER, waiting on son who arrived overnight from [place] of state. PHYSICAL EXAMINATION: VITAL SIGNS: see below GENERAL APPEARANCE: Lethargic, oriented to self. cachectic, weak, critically ill appearing HEENT: Atraumatic, normocephalic. Eyes are anicteric. Mucous membranes are pink and moist CARDIOVASCULAR: tachycardic regular rhythm, no noted murmurs LUNGS: Bilateral rhonchi, has significant accessory muscle use, poor effort ABDOMEN: Normoactive sounds, soft, nondistended. No rebound tenderness or guarding. EXTREMITIES: No lower extremity edema, no apparent rashes/petechiae. NEUROLOGICAL: Awake, speech is frail, AOx3 LABORATORY DATA: Reviewed IMAGING: No recent ASSESSMENT: 75 y/o M with stage 4 lung ca currently undergoing monthly palliative immunotherapy, COPD on 2L of O2 at home, DM2, prostate ca s/p prostatectomy, HTN and HLD who presents to the ED with increased sob x4 days with labs indicating hypercarbia c/w chronic respiratory failure and was pending discharge when he aspirated on pie and he had acute respiratory failure but recovered following suction of foreign body and bagging and therefore remains hospitalized due to profound hypoxia with minimal exertion and continued significant aspiration risk following his aspiration event. PLAN: # Aspiration event: Patient continues to have acute on chronic hypercarbic respiratory failure with ABGs that have somewhat improved since his aspiration event. - Now DNR/DNI, with no BiPAP/CPAP - Hebarium swallow yesterday which demonstrated significant weakness and failure to clear posterior oropharynx with multiple swallows as well as silent aspiration with swallowing any consistency liquid and solid. NPO - Expressed interest in PEG placement, now s/p NGT on tube feeds - Solu-Medrol 40mg IV daily - continue empiric Ceftriaxone IV - pulmonary toilet - FSBG Q6H #Metabolic encephalopathy: i/s/o worsening hypercarbia with hypercarbic hypoxemic respiratory failure i/s/o COPD exacerbation, stage 4 lung CA and recent aspiration event -check ABG this AM -DNR/DNI, no BiPAP, discussing GOC with family -On empiric ceftriaxone supplemental oxygen -continuing nebs #Hypercarbic hypoxemic respiratory failure i/s/o COPD exacerbation, stage 4 lung CA and recent aspiration event -check ABG this AM, with significant hypercarbia and associated acidosis -DNR/DNI, no BiPAP, discussing GOC with family -On empiric ceftriaxone supplemental oxygen -continuing nebs # significant malnutrition: -NGT with feeds, with plan for PEG placement - Ongoing goals of care discussion, now DNR/DNI but patient's family would like to continue immunotherapy for now # Tachycardia with transient AFib with RVR noted on telemetry, but deferred EKG overnight 12/20 given nature of GOC discussion: -Likely due to increased work of breathing. - lopressor 5mg IV Q6H # COPD with acute exacerbation: Patient has acute hypercarbia in the setting of COPD and stage 4 lung cancer. - Continue breathing treatments and pulmonary toilet - Albuterol neb q1h PRN - Duoneb Q4H PRN - IS - Continue Solu-Medrol with pred taper shortly - O2 PRN sats <89% # Stage IV lung cancer: Patient and family have poor insight into the severity of his malignancy and other illnesses. Have engaged with Palliative Care, however patient will not be able to travel to appointments once discharged and will not be able to engage with Palliative Care at this time. -For now decided on DNR/DNI, pending further family discussions about transitioning to E LEARNING DESIGNER # DM2: Stable with ISS in the setting of steroid use. - ISS Q6H in setting of NPO status # HTN: Hold home medications # HLD: Hold home Rosuvastatin # Migraines: Hold home medications # GERD: - Provide with Protonix IV # Depression: Hold home medications Encourage good day-night cycling Dispo: PCU Code: DNR/DNI Diet: NGT on feeds DVT Prophy: Lovenox Consults: LITHOGRAPHIC PLATE MAKER APPRENTICE, palliative care, SW, pulm VS,Fishbone, I+O VS, Fishbone, I+O Laboratory Tests 12/20/20 10:30 12/21/20 05:31 Vital Signs Date Time Temp Pulse Resp B/P (MAP) Pulse Ox O2 Delivery O2 Flow Rate FiO2 12/21/20 05:00 97 Venturi Mask 6.0 28 12/21/20 04:00 98.9 132 20 139/72 (94) I&O- Last 24 Hours up to 6 AM 12/21/20 06:00 Intake Total 690 ml Output Total 1165 ml Balance -475 ml MARCY MERIDA MD Dec 21, 2020 09:02
[2020-12-21] MEDS ORDERED: MORPHINE 2 MG/ML 1ML VIAL (J2270) IV PRN (14:55)
[2020-12-21] MEDS ORDERED: LORazepam 2 MG/ML VIAL IV PRN (14:55)
[2020-12-21] MEDS ORDERED: ACETAMINOPHEN 650 MG SUPP PR PRN (14:55)
[2020-12-22] MEDS: SODIUM CHLORIDE HYPERTONIC 3% 15ML NEB SOL INH SCH ×4 (02:00→20:00)
--- NOTE | 2020-12-22 18:12 | DS.PDOC ---
Discharge Summary General Date of Admission Dec 16, 2020 at 01:14 Date of Discharge 12/22/2020 Attending Physician: MARCY MERIDA MD Discharge Summary PROCEDURES PERFORMED DURING STAY: None ADMITTING DIAGNOSES: Acute on chronic hypoxemic respiratory failure DISCHARGE DIAGNOSES: Cardiac arrest 2/2 respiratory arrest i/s/o profound hypercarbia and hypoxemia in the setting of aspiration PNA, COPD and stage 4 lung cancer. Aspiration PNA Hypercarbic hypoxemic respiratory failure COPD exacerbation with a history of pulmonary fibrosis and chronic hypoxic respiratory failure on 2 liters nasal cannula oxygen supplementation at baseline. 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 Depression. Diabetes. History of prostate cancer. MIRZA; noncompliant with CPAP. Hypertension. Hyperlipidemia. Chronic anemia COMPLICATIONS/CHIEF COMPLAINT: Cancer Of Lung,Copdw/ Acute Exacerbation. HISTORY OF PRESENT ILLNESS: 75-year-old M with COPD with pulmonary fibrosis and chronic hypoxemic respiratory failure on 2 liters nasal cannula oxygen, history of squamous cell carcinoma reportedly stage 4; status post chemo/RT on maintenance therapy, diabetes, MIRZA; noncompliant with CPAP, who presented to the hospital with complaints of worsening shortness of breath with exertion for several days as well as some increasing cough and mucous production and was admitted for a COPD exacerbation and was treated with steroids and was planned for discharge on 12/19 but aspirated on barajas pie and had a rapid response called. He was hypoxic and he coughed up the food after a Heimlich maneuver but his course was c/b by persistent hypoxemia and he became obtunded. He was transferred to the ICU where he was briefly on pressors for transient shock and was started on empiric antibiotics and he had some clinical improvement. His course was further c/b developed of likely aspiration PNA with noted hypercarbic hypoxemic respiratory failure with encephalopathy as hypercarbia worsened. The patient expressed that he wanted to be DNR/DNI and declined BiPAP therapy with the knowledge that the hypercarbia would continue to likely get worse and hypoxemia also worsen. 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 All antibiotics, tube feeds, and other therapeutics were stopped and he was kept on morphine, scopolamine patches for secretions and ativan for anxiety with supplemental oxygen for comfort until he likely from respiratory arrest i/s/o profound hypercarbia and hypoxemia in the setting of aspiration PNA, COPD and stage 4 lung cancer. DISCHARGE MEDICATIONS: Please see below. ALLERGIES: Please see below. PHYSICAL EXAMINATION ON DISCHARGE: WAS NOT PRESENT AT TIME OF EXPIRATION LABORATORY DATA: Please see below. IMAGING: CXR 12/15 The technique utilized in obtaining the radiograph has magnified the cardiac silhouette and accentuated the interstitial markings. Cardiomediastinal silhouette is unchanged. The MediPort device is seen the tip of which is in the superior vena cava. The right sided central venous catheter seen previously has been removed. There is diffuse interstitial fibrotic change status quo. No acute patchy parenchymal opacities or pleural effusions have developed. IMPRESSION: Chronic lung field changes and other findings as described above. 12/15 CTA chest: FINDINGS: Pulmonary arteries: There is opacification of the pulmonary arteries with no evidence of pulmonary embolus. There is no evidence of pneumothorax. Aorta: There is opacification of the aorta which appears intact. Lungs: There are changes of bullous emphysema and pulmonary fibrosis. Pleural spaces: A small right pleural effusion of the previous examination has resolved. Heart: Unremarkable. No cardiomegaly. No pericardial effusion. Lymph nodes: This further decrease in size of the low large right suprahilar mass since the previous exams. This now measures approximately 4.5 cm some central necrosis. The mediastinal and right hilar lymphadenopathy has further decreased as well. Diaphragm: There is continued elevation of the right hemidiaphragm. Bones/joints: Unremarkable. No acute fracture. Soft tissues: Unremarkable. IMPRESSION: 1. No evidence of pulmonary embolus. 2. The large right suprahilar mass lesion has further decreased in the lymphadenopathy is further decreased in size. 3. Severe changes of bullous emphysema and pulmonary fibrosis. 12/17 CXR: The technique utilized in obtaining the radiograph has magnified the cardiac silhouette and accentuated the interstitial markings. The cardiomediastinal silhouette is unchanged. There is cardiomegaly accentuated by technique. The tip of the MediPort device remains in the superior vena cava. Chronic interstitial lung changes are again noted status quo. No acute patchy parenchymal opacities or pleural effusions have developed. There is chronic elevation of the diaphragm surface of the right lung. There is no change in the imaged osseous structures. IMPRESSION: Stable appearing chronic changes as described above. 12/19 CXR: The distal portion of the nasogastric tube is seen beneath the diaphragmatic surface of the left lung presumably within the stomach fundal region. The proximal port is just distal to or at the esophagogastric junction. The imaged portion of the lung avendano show no significant change from 12/17/2020. The imaged portion of the known MediPort device appears unchanged. IMPRESSION: As above PROGNOSIS: ACTIVITY: DIET: DISCHARGE PLAN: DISPOSITION: DISCHARGE INSTRUCTIONS: ITEMS TO FOLLOWUP ON ON OUTPATIENT: DISCHARGE CONDITION: TIME SPENT ON DISCHARGE: 50 minutes. Vital Signs/I&Os Vital Signs Date Time Temp Pulse Resp B/P (MAP) Pulse Ox O2 Delivery O2 Flow Rate FiO2 12/22/20 08:00 5.0 12/21/20 16:00 Nasal Cannula 12/21/20 12:00 96.8 120 20 136/73 (94) 96 28 I&O- Last 24 Hours up to 6 AM 12/22/20 06:00 Intake Total 0 ml Output Total 0 ml Balance 0 ml Microbiology Microbiology 12/17/20 Blood Culture - Preliminary, Resulted No Growth after 72 hours. All specime... 12/15/20 Respiratory Virus Panel (PCR) ([facility]) - Final, Complete Discharge Medications Scheduled Alogliptin Benzoate (Nesina) 12.5 Mg Tablet, 12.5 MG PO QHS, (Reported) Aspirin (Aspirin EC) 81 Mg Tablet.dr, 81 MG PO DAILY, (Reported) Bupropion HCl (Bupropion HCl Sr) 150 Mg Tab.sr.12h, 150 MG PO BID, (Reported) Cetirizine HCl (Cetirizine HCl) 10 Mg Tablet, 10 MG PO DAILY Cholecalciferol (Vitamin D3) (Vitamin D3) 1,000 Unit Tablet, 1,000 UNITS PO QHS, (Reported) Cyanocobalamin (Vitamin B-12) (Vitamin B-12) 500 Mcg Tablet, 500 MCG PO Q2D, (Reported) EVERY OTHER DAY AT QHS Empagliflozin (Jardiance) 25 Mg Tablet, 12.5 MG PO DAILY, (Reported) Ferrous Gluconate (Ferrous Gluconate) 324 Mg Tablet, 324 MG PO DAILY, (Reported) Metformin HCl (Metformin HCl) 1,000 Mg Tablet, 1,000 MG PO BID, (Reported) Metoprolol Succinate (Metoprolol Succinate) 25 Mg Tab.er.24h, 12.5 MG PO QHS, (Reported) Multivitamins (Thera M Plus Tablet) 1 Each Tablet, 1 TAB PO BID, (Reported) Pantoprazole Sodium (Pantoprazole Sodium) 40 Mg Tablet.dr, 40 MG PO DAILY, (Reported) Pioglitazone HCl (Pioglitazone HCl) 45 Mg Tablet, 45 MG PO QHS, (Reported) Prednisone (Prednisone) 50 Mg Tablet, 50 MG PO DAILY Complete prednisone burst Rosuvastatin Calcium (Rosuvastatin Calcium) 40 Mg Tablet, 40 MG PO QHS, (Reported) Sennosides (Eileen-Mario) 8.6 Mg Tablet, 8.6 MG PO BID, (Reported) Topiramate (Topiramate) 200 Mg Tablet, 100 MG PO BID, (Reported) Scheduled PRN Albuterol Sulfate (Albuterol Sulfate Hfa) 8.5 Gm Hfa.aer.ad, 2 PUFFS INH Q4H PRN for SHORTNESS OF BREATH, (Reported) Hydrocortisone (Proctozone-Hc) 30 Gm Crm.pe.claudia, 1 DOSE EXT BID PRN for RASH/ITCHING, (Reported) APPLIES TO TAILBONE NEEDED Prochlorperazine Maleate (Prochlorperazine Maleate) 10 Mg Tablet, 10 MG PO Q6H PRN for NAUSEA OR VOMITING, (Reported) Sildenafil Citrate (Sildenafil Citrate) 100 Mg Tablet, 50 MG PO DAILY PRN for ERECTILE DYSFUNCTION, (Reported) Sumatriptan Succinate (Sumatriptan Succinate) 100 Mg Tablet, 100 MG PO BID PRN for MIGRAINE, (Reported) Allergies Coded Allergies: No Known Allergies (Unverified , 01/12/19) MARCY MERIDA MD Dec 22, 2020 18:12
== END 2020-12-22 21:10 | disposition expired | DRG 190 ==
LOC: M ED 18:24 → M ED INP 12-16 01:14 → ENRESERV 12-16 01:17 → M MS5PR 12-16 03:00 → M ICU 12-17 17:44 → OBSVTOIN 12-19 10:17 → M ICU 12-19 20:29 → M PCU 12-19 20:29 → UNDODISOB 12-22 21:10
PROVIDERS: ADMIT Internal Medicine; ATTEND Internal Medicine
DX: J44.1 Chronic obstructive pulmonary disease with (acute) exacerbation (principal); J96.21 Acute and chronic respiratory failure with hypoxia; J96.22 Acute and chronic respiratory failure with hypercapnia; J69.0 Pneumonitis due to inhalation of food and vomit; G93.41 Metabolic encephalopathy; C34.01 Malignant neoplasm of right main bronchus; R64 Cachexia; J98.11 Atelectasis; E46 Unspecified protein-calorie malnutrition; Z68.1 Body mass index [BMI] 19.9 or less, adult; E11.9 Type 2 diabetes mellitus without complications; Z85.46 Personal history of malignant neoplasm of prostate; I10 Essential (primary) hypertension; D50.9 Iron deficiency anemia, unspecified; Z51.5 Encounter for palliative care; Z66 Do not resuscitate; T17.220A Food in pharynx causing asphyxiation, initial encounter; K59.09 Other constipation; I46.9 Cardiac arrest, cause unspecified; F41.9 Anxiety disorder, unspecified; E78.5 Hyperlipidemia, unspecified; G47.33 Obstructive sleep apnea (adult) (pediatric); G43.909 Migraine, unspecified, not intractable, without status migrainosus; K21.9 Gastro-esophageal reflux disease without esophagitis; F32.9 Major depressive disorder, single episode, unspecified; Z79.82 Long term (current) use of aspirin; Z79.52 Long term (current) use of systemic steroids; Z79.84 Long term (current) use of oral hypoglycemic drugs; Z79.899 Other long term (current) drug therapy; J84.10 Pulmonary fibrosis, unspecified; Z99.81 Dependence on supplemental oxygen; Z92.3 Personal history of irradiation; Z92.21 Personal history of antineoplastic chemotherapy; Z77.098 Contact with and (suspected) exposure to other hazardous, chiefly nonmedicinal, chemicals